=== PATIENT | male | born 1955 | race Caucasian/White ===

== ENCOUNTER → 2018-08-12 | Outpatient (CLI) | payer MEDICARE ==
[~2018-08-12] MED LIST: ALBU90OI INH; ASPI325EC PO; ATOR10 PO; BUDE6HFA INH; BUPR150ER PO; HYDCHL25 PO; METO50ER PO; NAPR500 PO; Neurontin 300300 MG PO; Percocet 5-3251 EACH PO
[2018-08-14 06:16] LABS: COTININE Negative ng/mL (Cutoff=300)
== END | disposition home or self-care (01) ==
LOC: LAB SHORT 09:45 → LAB 09:45 → EDSTATUS 11:52
PROVIDERS: Orthopaedic Surgery
DX: F17.200 Nicotine dependence, unspecified, uncomplicated (principal)

== ENCOUNTER 2018-09-10 06:01 | Inpatient (IN) | payer MEDICARE ==
[~2018-09-10] VITALS: Ht 175.3 cm; Wt 96.2 kg
[~2018-09-10 06:01] MED LIST changes: -ASPI325EC PO; -Percocet 5-3251 EACH PO
--- NOTE | 2018-09-10 06:47 | NUR ---
History, Chart, Medications and Allergies reviewed before start of procedure. Patient confirms NPO status and agrees with scheduled surgery. Lungs clear T/O to Auscultation. Patient reports completing Chlorhexadine shower X2 prior to admission to hospital. Pre-Op teaching done. Pt verbalizes understanding.
--- NOTE | 2018-09-10 07:21 | NUR ---
TEST GRADER REPORT COMPLETED AT BEDSIDE WITH MINOR FIGUEROA RN.
--- NOTE | 2018-09-10 07:25 | NUR ---
PATIENT UP FOR UNMEASURED VOID.
--- NOTE | 2018-09-10 07:48 | NUR ---
LATE ENTRY- [facility] SWABS COMPLETED TO BILATERAL NARES PRESURGICALLY.
--- NOTE | 2018-09-10 10:38 | NUR ---
"COMMUNITY MARKETING MANAGER | BLADDER SCAN Bladder scan of patient per protocol was 117 ml."
--- NOTE | 2018-09-10 12:56 | NUR ---
09/10/18 1256 Jessica Bobby VERIFICATIONS, CHART AUDITS, EDITS.
--- NOTE | 2018-09-10 17:22 | NUR ---
SHIFT SUMMARY PT A&OX4, VSS, S/P R IMANI, AQUACEL CDI, SCDS/TEDS. PAIN MANAGED WITH 10 MG PERC Q4, TORADOL & TYLENOL SCHEDULED. YECENIA PO, DENIES N&V. AMB FWW & GB, SITTING IN CHAIR. PHYSICAL THERAPY EVAL'D. WILL CTM & TX PER EMAR UNTIL REPORT GIVEN TO ONCOMING VANESSA MAHER.
--- NOTE | 2018-09-11 04:17 | NUR ---
SHIFT SUMMARY: PT POD #1 FOR RT IMANI. A&O X4. VS WNL. OOB TO AMBULATE W/FWW. YECENIA ACTIVITY WELL. PAIN MANAGED WITH PERCOCET 10 MG Q4 PER EMAR. AQUACEL DRESSING CDI. PT REFUSING POLAR PACK. VOIDING, DRINKING PO FLUIDS AND YECENIA REG DIET. NO CONCERNS AT THIS TIME.
[2018-09-11 04:19] LABS: BASOPHILS ABSOLUTE AUTO 0.02 K/mm3 (0.00-0.23); BASOPHILS PERCENT AUTO 0 % (0-2); EOSINOPHILS ABSOLUTE AUTO 0.11 K/mm3 (0.00-0.68); EOSINOPHILS PERCENT AUTO 2 % (0-6); Hematocrit 27.9 % (37.0-53.0); Hemoglobin 8.7 g/dL (13.5-17.5); IMMATURE GRAN ABSOLUTE AUTO 0.02 K/mm3 (0.00-0.10); IMMATURE GRAN PERCENT AUTO 0 % (0-1); LYMPHOCYTES ABSOLUTE AUTO 0.53 K/mm3 (0.84-5.20); LYMPHOCYTES PERCENT AUTO 8 % (21-46); MONOCYTES ABSOLUTE AUTO 0.59 K/mm3 (0.16-1.47); MONOCYTES PERCENT AUTO 9 % (4-13); Mean Corpuscular HGB Conc 31.2 g/dL (31.5-36.5); Mean Corpuscular Volume 96 fL (80-100); NEUTROPHILS ABSOLUTE AUTO 5.06 K/mm3 (1.96-9.15); NEUTROPHILS PERCENT AUTO 80 % (41-73); Platelet Count 240 K/mm3 (150-400); RDW Coefficient Variation 13.4 % (11.7-14.2); White Blood Cell Count 6.33 K/mm3 (4.00-11.30)
[2018-09-11 04:51] LABS: Anion Gap 6 mmol/L (6-16); Blood Urea Nitrogen 26 mg/dL (8-24); Bun/Creatinine Ratio 21.5 (12.0-20.0); CO2, Blood 26 mmol/L (21-32); Calcium, Blood 8.5 mg/dL (8.5-10.1); Chloride, Blood 107 mmol/L (98-108); Creatinine, Blood 1.21 mg/dL (0.60-1.20); Glomerular Filtration Rate >60 (60-); Glucose, Blood 113 mg/dL (70-99); Potassium, Blood 4.1 mmol/L (3.5-5.5); Sodium, Blood 139 mmol/L (136-145)
[2018-09-11] MEDS ORDERED: ASPI325EC PO (09:21)
[2018-09-11] MEDS ORDERED: Percocet 5-3251 EACH PO (09:21)
--- NOTE | 2018-09-11 12:35 | NUR ---
DISCHARGE SUMMARY PT A&OX4, VSS, LEFT FLOOR VIA WC WITH GAME PRESERVE MANAGER TO GO HOME WITH FAMILY, WITH ALL PERSONAL POSSESSIONS INCLUDING DISCHARGE PACKET, ASA SCRIPT, NARC SCRIPT, 2 AQUACEL DRESSINGS. DISCHARGE INSTRUCTIONS PROVIDED. PT REP UNDERSTANDING THOSE INSTRUCTIONS INCLUDING CHANGE DRESSINGS ON WEDNESDAYS UNTIL 2 WK FU APPT WITH SURGEON, SHOWER OK, NO TUB/JACUZZI, SHORT/FREQUENT AMBULATION W/FWW, PT APPTS. IV DC'D.
== END 2018-09-11 11:03 | disposition home or self-care (01) | DRG 470 ==
LOC: SURS 06:01 → PRE IP 07:30 → SURS 11:23
PROVIDERS: ADMIT Orthopaedic Surgery
PROC: 0SR90JA Replacement of Right Hip Joint with Synthetic Substitute, Uncemented, Open Approach (ICD-10-PCS; principal; 2018-09-10 07:30)
DX: M87.051 Idiopathic aseptic necrosis of right femur (principal); I10 Essential (primary) hypertension; J44.9 Chronic obstructive pulmonary disease, unspecified; Z87.891 Personal history of nicotine dependence
CPT/HCPCS: 36415; 72170; 80048; 85025; 86850; 86900; 86901; 88300; 94640; 94760; 97110; 97116; 97162; 97530; C1776; J0171; J0690; J0735; J1170; J1885; J2250; J2405; J2795; J3010; J7120

== ENCOUNTER 2018-10-17 13:40 | Day surgery (SDC) | payer MEDICARE ==
[~2018-10-17] VITALS: Ht 175.3 cm; Wt 94.8 kg
[~2018-10-17 13:40] MED LIST changes: +ASPI325EC PO; +Percocet 5-3251 EACH PO
--- NOTE | 2018-10-17 17:18 | NUR ---
"DAY SURGERY RN | DISCHARGE VSS. A/O. Sites C/D/I. Discharge instructions and RX given to patient. No issues. Patient steady on feet. All belongings returned to patient."
== END 2018-10-17 15:00 | disposition home or self-care (01) ==
LOC: ORSCMMR 13:40 → ORD 15:30
PROVIDERS: Orthopaedic Surgery
PROC: 01N40ZZ Release Ulnar Nerve, Open Approach (ICD-10-PCS; principal; 2018-10-17 15:30)
DX: G56.22 Lesion of ulnar nerve, left upper limb (principal); I10 Essential (primary) hypertension; J44.9 Chronic obstructive pulmonary disease, unspecified; Z79.899 Other long term (current) drug therapy
CPT/HCPCS: J0690; J1100; J1885; J2250; J2405; J3010; J7120

== ENCOUNTER → 2020-10-13 | Outpatient (CLI) | payer MEDICARE ==
[2020-10-13 10:45] LABS: BASOPHILS ABSOLUTE AUTO 0.04 K/mm3 (0.00-0.23); BASOPHILS PERCENT AUTO 1 % (0-2); EOSINOPHILS ABSOLUTE AUTO 0.18 K/mm3 (0.00-0.68); EOSINOPHILS PERCENT AUTO 2 % (0-6); Hematocrit 36.3 % (37.0-53.0); IMMATURE GRAN ABSOLUTE AUTO 0.03 K/mm3 (0.00-0.10); IMMATURE GRAN PERCENT AUTO 0 % (0-1); LYMPHOCYTES ABSOLUTE AUTO 0.98 K/mm3 (0.84-5.20); LYMPHOCYTES PERCENT AUTO 13 % (21-46); MONOCYTES ABSOLUTE AUTO 0.69 K/mm3 (0.16-1.47); MONOCYTES PERCENT AUTO 9 % (4-13); Mean Corpuscular HGB 27.6 pg (26.0-34.0); Mean Corpuscular HGB Conc 30.3 g/dL (31.5-36.5); Mean Corpuscular Volume 91 fL (80-100); Mean Platelet Volume 9.3 fL (9.1-12.4); NEUTROPHILS ABSOLUTE AUTO 5.94 K/mm3 (1.96-9.15); NEUTROPHILS PERCENT AUTO 76 % (41-73); Platelet Count 349 K/mm3 (150-400); RDW Coefficient Variation 16.1 % (11.7-14.2); RDW Standard Deviation 53.6 fL (35.1-46.3); Red Blood Cell Count 3.99 M/mm3 (4.30-5.90); White Blood Cell Count 7.86 K/mm3 (4.00-11.30)
[2020-10-13 13:23] LABS: PSA, %Free Unable to Calculate %; PSA, Free <0.015 ng/mL
[2020-10-13 13:31] LABS: Alanine Aminotransfer (ALT/SGP 19 U/L (12-78); Albumin, Blood 3.3 g/dL (3.4-5.0); Albumin/Globulin Ratio 0.8 (0.8-1.8); Alk Phos 80 U/L (50-136); Anion Gap 4 mmol/L (6-16); Aspartate Aminotrans (AST/SGOT 11 U/L (12-37); Bilirubin, Total 0.3 mg/dL (0.1-1.0); Blood Urea Nitrogen 15 mg/dL (8-24); Bun/Creatinine Ratio 13.9 (12.0-20.0); CHOL/HDL RATIO 2.1; CO2, Blood 31 mmol/L (21-32); Calcium, Blood 9.3 mg/dL (8.5-10.1); Chloride, Blood 108 mmol/L (98-108); Cholesterol 126 mg/dL (50-200); Creatinine, Blood 1.08 mg/dL (0.60-1.20); Glomerular Filtration Rate >60 (60-); Glucose, Blood 95 mg/dL (70-99); HDL Cholesterol 59 mg/dL (>39); LDL/HDL RATIO 0.7; Low Density Lipoprotein Chol 39 mg/dL (0-110); Potassium, Blood 4.3 mmol/L (3.5-5.5); Sodium, Blood 143 mmol/L (136-145); Total Protein, Blood 7.3 g/dL (6.4-8.2); Triglycerides 139 mg/dL (30-160); Very Low Density Lipoprot Chol 27 mg/dL (6-32)
== END | disposition home or self-care (01) ==
LOC: LAB SHORT 09:41 → OLS 09:41
PROVIDERS: Family Medicine
DX: C61 Malignant neoplasm of prostate (principal); E78.5 Hyperlipidemia, unspecified; I73.9 Peripheral vascular disease, unspecified; E66.9 Obesity, unspecified
CPT/HCPCS: 36415; 80053; 80061; 83036; 84153; 84154; 84443; 85025

== ENCOUNTER 2021-07-15 18:05 | Emergency (ER) | payer MEDICARE ==
[~2021-07-15] VITALS: Ht 175.3 cm; Wt 99.8 kg
[2021-07-15 19:35] LABS: BASOPHILS ABSOLUTE AUTO 0.06 K/mm3 (0.00-0.23); BASOPHILS PERCENT AUTO 1 % (0-2); EOSINOPHILS PERCENT AUTO 3 % (0-6); Hemoglobin 10.9 g/dL (13.5-17.5); IMMATURE GRAN ABSOLUTE AUTO 0.05 K/mm3 (0.00-0.10); IMMATURE GRAN PERCENT AUTO 1 % (0-1); LYMPHOCYTES ABSOLUTE AUTO 1.44 K/mm3 (0.84-5.20); LYMPHOCYTES PERCENT AUTO 20 % (21-46); MONOCYTES PERCENT AUTO 10 % (4-13); Mean Corpuscular HGB 29.9 pg (26.0-34.0); Mean Corpuscular HGB Conc 32.1 g/dL (31.5-36.5); Mean Corpuscular Volume 93 fL (80-100); Mean Platelet Volume 9.5 fL (9.1-12.4); NEUTROPHILS ABSOLUTE AUTO 4.88 K/mm3 (1.96-9.15); NEUTROPHILS PERCENT AUTO 67 % (41-73); Platelet Count 302 K/mm3 (150-400); RDW Coefficient Variation 16.7 % (11.7-14.2); Red Blood Cell Count 3.64 M/mm3 (4.30-5.90); White Blood Cell Count 7.33 K/mm3 (4.00-11.30)
[2021-07-15 20:07] LABS: Albumin, Blood 3.1 g/dL (3.4-5.0); Bilirubin, Total 0.2 mg/dL (0.1-1.0); Bun/Creatinine Ratio 16.8 (12.0-20.0); Creatinine, Blood 1.25 mg/dL (0.60-1.20); Potassium, Blood 4.4 mmol/L (3.5-5.5); Total Protein, Blood 6.1 g/dL (6.4-8.2)
== END 2021-07-15 20:53 | disposition home or self-care (01) ==
LOC: ER 18:05
PROVIDERS: Emergency Medicine
DX: R60.0 Localized edema (principal); I10 Essential (primary) hypertension; Z79.899 Other long term (current) drug therapy; F17.210 Nicotine dependence, cigarettes, uncomplicated
CPT/HCPCS: 36415; 80053; 83880; 85025; 93971; 99284-25

== ENCOUNTER 2023-02-09 22:10 | Inpatient (IN) | payer MEDICARE ==
[~2023-02-09] VITALS: Ht 175.3 cm; Wt 107.2 kg
[2023-02-09 23:04] LABS: BASOPHILS ABSOLUTE AUTO 0.04 K/mm3 (0.00-0.23); BASOPHILS PERCENT AUTO 0 % (0-2); EOSINOPHILS ABSOLUTE AUTO 0.13 K/mm3 (0.00-0.68); EOSINOPHILS PERCENT AUTO 1 % (0-6); Hematocrit 41.6 % (37.0-53.0); Hemoglobin 13.4 g/dL (13.5-17.5); IMMATURE GRAN ABSOLUTE AUTO 0.05 K/mm3 (0.00-0.10); IMMATURE GRAN PERCENT AUTO 0 % (0-1); LYMPHOCYTES PERCENT AUTO 14 % (21-46); MONOCYTES PERCENT AUTO 12 % (4-13); Mean Corpuscular HGB 28.9 pg (26.0-34.0); Mean Corpuscular HGB Conc 32.2 g/dL (31.5-36.5); Mean Corpuscular Volume 90 fL (80-100); Mean Platelet Volume 9.1 fL (9.1-12.4); NEUTROPHILS ABSOLUTE AUTO 8.13 K/mm3 (1.96-9.15); NEUTROPHILS PERCENT AUTO 73 % (41-73); Platelet Count 320 K/mm3 (150-400); RDW Standard Deviation 52.8 fL (35.1-46.3); Red Blood Cell Count 4.64 M/mm3 (4.30-5.90); White Blood Cell Count 11.15 K/mm3 (4.00-11.30)
[2023-02-09 23:23] LABS: Bilirubin, Total 0.3 mg/dL (0.1-1.0); Bun/Creatinine Ratio 11.6 (12.0-20.0); Calcium, Blood 9.1 mg/dL (8.5-10.1); Creatinine, Blood 3.35 mg/dL (0.60-1.20); Globulin, Blood 3.9 g/dL (2.2-4.0); Potassium, Blood 3.9 mmol/L (3.5-5.5); Total Protein, Blood 7.9 g/dL (6.4-8.2)
[2023-02-10 01:48] LABS: Source, Urine Clean Catch
[2023-02-10 01:50] LABS: Blood, Urine 1+ (Neg); Glucose Qualitative, Urine Neg (Neg); Ketones, Urine 1+ (Neg); Leukocyte Esterase, Urine 2+ (Neg); Nitrite, Urine Neg (Neg); Protein, Urine 3+ (Neg); Specific Gravity, Urine 1.025 (1.003-1.022); Urobilinogen, Urine 1+ (Normal)
[2023-02-10 01:52] LABS: Appearance, Urine Hazy (Clear); Bilirubin, Urine 2+ (Neg); Color, Urine Yellow (P-Yellow)
[2023-02-10 02:15] LABS: Amorphous Light (0-Heavy); Bacteria Mod /hpf; Granular Casts 0-2 /lpf (0); Mucus Light (0-Heavy); Other Crystals Few /hpf; Squamous Epithelial Cells Few /hpf (Few); White Blood Cells, Urine 25-50 /hpf (0-5)
[2023-02-10] MEDS ORDERED: AMLO5 PO (02:22)
[2023-02-10] MEDS ORDERED: TRAM50 PO (02:23)
--- NOTE | 2023-02-10 08:01 | NUR ---
PT ARRIVED TO THE MEDICAL FLOOR FROM THE ER A/OX4. PLEASANT AND COOPERAT, VIA WHEELCHAIR. THE PT WAS ABLE TO TRANSFER TO THE BED WITH MINIMAL ASSISTANCE. THE PT WAS ORIENTED TO THE ROOM LAYOUT AND CALL SYSTEM. CALL LIGHT IN REACH WILL CONTINUE TO MONITOR AND ASSESS FOR CHANGES
[2023-02-10 08:02] VITALS: BP 151/98
[2023-02-10] MEDS ORDERED: NAPR500 PO (10:24)
[2023-02-10] MEDS ORDERED: TRAZ100 PO (10:24)
[2023-02-10] MEDS ORDERED: ATOR10 PO (10:26)
[2023-02-10] MEDS ORDERED: ASPI81CH PO (10:26)
[2023-02-10 11:04] LABS: CPK Creatine Kinase 162 U/L (39-308)
[2023-02-10 17:20] VITALS: BP 140/82
--- NOTE | 2023-02-10 19:29 | NUR ---
PT IS A/OX4, PLEASANT AND COOPERATIVE. THE PT IS UP IND IN HIS ROOM. THE PT IS UP SLOWLY DUE TO SEVERE BACK PAIN. THE PT WAS MEDICATED FOR PAIN T/O THE DAY. THE PT WAS ENCOURAGED TO DRINK PLENTY OF FLUIDS. THE PTS FAMILY WAS IN TO VISIT. CALL LIGHT IN REACH. REPORT GIVEN TO NIGHT RN
[2023-02-10 19:32] VITALS: BP 147/69
[2023-02-10 20:10] LABS: Albumin, Blood 3.7 g/dL (3.4-5.0); Anion Gap 12 mmol/L (6-16); Blood Urea Nitrogen 40 mg/dL (8-24); Bun/Creatinine Ratio 12.6 (12.0-20.0); CO2, Blood 17 mmol/L (21-32); Chloride, Blood 109 mmol/L (98-108); Creatinine, Blood 3.17 mg/dL (0.60-1.20); Glomerular Filtration Rate 20 (60-); Glucose, Blood 104 mg/dL (70-99); Phosphorus, Blood 5.4 mg/dL (2.5-4.9); Potassium, Blood 3.8 mmol/L (3.5-5.5); Sodium, Blood 138 mmol/L (136-145)
[2023-02-11 00:14] LABS: Albumin, Blood 3.2 g/dL (3.4-5.0); Anion Gap 4 mmol/L (6-16); Blood Urea Nitrogen 39 mg/dL (8-24); Bun/Creatinine Ratio 22.4 (12.0-20.0); CO2, Blood 27 mmol/L (21-32); Calcium, Blood 8.4 mg/dL (8.5-10.1); Chloride, Blood 109 mmol/L (98-108); Creatinine, Blood 1.74 mg/dL (0.60-1.20); Glomerular Filtration Rate 42 (60-); Glucose, Blood 116 mg/dL (70-99); Phosphorus, Blood 4.4 mg/dL (2.5-4.9); Potassium, Blood 4.1 mmol/L (3.5-5.5); Sodium, Blood 140 mmol/L (136-145)
--- NOTE | 2023-02-11 03:23 | NUR ---
SHIFT SUMMARY NOC PT A/O X 4. PLEASANT AND COOPERATIVE WITH CARE. CHRONIC BACK PAIN MANAGED PER EMAR. PT ON TELE RUNNING SINUS RHYTHM @ 82 BPM. PT RECEIVING ABX FOR UTI. AWAITING RENAL FUNCTION LABS TO EVALUATE NS AND BICARB INFUSIONS. PT EDUCATED ON [facility] FIRE SAFETY IGNITION/EXPLOSIVE NON SMOKING POLICY. PT IS CURRENTLY RESTING WITH BED IN LOWEST POSITION, AND CALL LIGHT WITHIN REACH.
[2023-02-11 04:24] VITALS: BP 137/79
[2023-02-11 04:48] LABS: BASOPHILS ABSOLUTE AUTO 0.03 K/mm3 (0.00-0.23); BASOPHILS PERCENT AUTO 1 % (0-2); EOSINOPHILS ABSOLUTE AUTO 0.28 K/mm3 (0.00-0.68); EOSINOPHILS PERCENT AUTO 5 % (0-6); Hematocrit 36.7 % (37.0-53.0); Hemoglobin 11.5 g/dL (13.5-17.5); IMMATURE GRAN ABSOLUTE AUTO 0.02 K/mm3 (0.00-0.10); IMMATURE GRAN PERCENT AUTO 0 % (0-1); LYMPHOCYTES ABSOLUTE AUTO 1.02 K/mm3 (0.84-5.20); LYMPHOCYTES PERCENT AUTO 19 % (21-46); MONOCYTES ABSOLUTE AUTO 0.59 K/mm3 (0.16-1.47); MONOCYTES PERCENT AUTO 11 % (4-13); Mean Corpuscular HGB 28.5 pg (26.0-34.0); Mean Corpuscular HGB Conc 31.3 g/dL (31.5-36.5); Mean Corpuscular Volume 91 fL (80-100); Mean Platelet Volume 9.4 fL (9.1-12.4); NEUTROPHILS ABSOLUTE AUTO 3.32 K/mm3 (1.96-9.15); NEUTROPHILS PERCENT AUTO 63 % (41-73); Platelet Count 226 K/mm3 (150-400); RDW Coefficient Variation 15.8 % (11.7-14.2); RDW Standard Deviation 52.8 fL (35.1-46.3); Red Blood Cell Count 4.04 M/mm3 (4.30-5.90); White Blood Cell Count 5.26 K/mm3 (4.00-11.30)
[2023-02-11 06:11] LABS: Albumin, Blood 3.3 g/dL (3.4-5.0); Albumin/Globulin Ratio 0.9 (0.8-1.8); Bilirubin, Total 0.2 mg/dL (0.1-1.0); Bun/Creatinine Ratio 21.7 (12.0-20.0); Calcium, Blood 8.8 mg/dL (8.5-10.1); Creatinine, Blood 1.57 mg/dL (0.60-1.20); Globulin, Blood 3.6 g/dL (2.2-4.0); Potassium, Blood 4.1 mmol/L (3.5-5.5); Total Protein, Blood 6.9 g/dL (6.4-8.2)
[2023-02-11 07:32] VITALS: BP 158/75
[2023-02-11 10:41] VITALS: BP 169/75
[2023-02-11 15:47] VITALS: BP 136/60
--- NOTE | 2023-02-11 16:47 | NUR ---
SHIFT SUMMARY PT A/OX4 AND ABLE TO MAKE NEEDS KNOWN. PLEASANT AND COOPERATIVE. PT C/O HIGH LEVELS OF PAIN T/O SHIFT AND MOSTLY UNMANAGED WITH Q3 DILAUDID. AT START OF SHIFT PT C/O OF SOME INTERMITTANT CHEST PAIN, THEN EPISODE OF LEFT ARM SHOOTING PAIN. BP ELEVATED. DR ARAIZA AT BEDSIDE WITH ORDERS: RESTART NORVAS 5M FIRST DOSE NOW, EKG, TROPONIN, AND OTHER HOME MEDS ORDERED BY DR ARAIZA INCLUDING RESPIRATORY MEDICATIONS. EKG NORMAL TROPONINS NEGATIVE. PT HAS BEDSIDE IMAGING OF ABD/RENAL. PT TOLERATED WELL. PT GIVEN 2 DOES OF VALIUM TO PREP FOR MRI. PT TAKEN TO MRI AT 430. PT RETURNED AT 445. MRI NOT DONE. FRAME NAILER/MEGAN CALLED AND SAID WHEN PT GETTING READY FOR SCAN HE BEGAN TO C/O SOB AND MRI STOPPED. MEGAN CALLED TO UPDATE AND SAID COULD TRY AGAIN ANOTHER TIME. PT CODE STATUS CHANGED FROM DNR CODE TO DNI CODE AFTER BEDSIDE DISCUSSION WITH DR ARAIZA. CHARGE NURSE ASSESSED FOR IGNITION RISKS DISCUSSED RISKS WITH THE PT.
--- NOTE | 2023-02-11 17:59 | NUR ---
PT REQUESTING MRI OUT PATIENT AT [place] WITH THE BIGGER MRI MACHIN. PHONE CALL TO DR ARAIZA TO ADVISE OF PT WISHES. DR WILCOX TO SEE PT TOMORROW.
[2023-02-11 19:45] VITALS: BP 136/73
--- NOTE | 2023-02-12 03:10 | NUR ---
SHIFT SUMMARY NOC PT A/O X 4. PLEASANT AND COOPERATIVE WITH CARE. NO ACUTE CHANGES TO REPORT. PT CHRONIC PAIN BEING MANAGED PER EMAR Q3H WITH DILAUDID. PT HAS HAD NO C/O OF CP/SOB DURING NOC SHIFT. ON TELE SINUS RHTYHM @ 82 BPM. PT RENAL FUNCTION HAS IMPROVED. PT ATTEMPTED MRI FOR LUMBAR YESTERDAY BUT COULD NOT TOLERATE IT. FOLLOW UP MRI OUTPATIENT DISCUSSED WITH PROVIDER. PT BP RX RESTARTED YESTERDAY AND VSS. PT ALSO HAD FIRST BM SINCE SUNDAY THAT WAS XL AND FORMED. PT IS ANXIOUS TO DISCHARGE AND UNDERSTANDS THAT PAIN CONTROL WITH PO RX WILL BE REQUIRED TO DO SO. PT EDUCATED ON [facility] FIRE PREVENTION SAFETY IGNITION/EXPLOSIVE NON SMOKING POLICY. PT IS CURRENTLY RESTING WITH BED IN LOWEST POSITION, AND CALL LIGHT WITHIN REACH.
[2023-02-12 03:29] VITALS: BP 125/71
[2023-02-12 08:30] VITALS: BP 148/78
[2023-02-12] MEDS ORDERED: Acetaminophen325 M1 PO (12:03)
[2023-02-12] MEDS ORDERED: MIRALAX17 GM PO (12:03)
[2023-02-12] MEDS ORDERED: HYDMOR2 PO (12:04)
[2023-02-12] MEDS ORDERED: CEFP200 PO (12:04)
--- NOTE | 2023-02-12 12:50 | NUR ---
DISCHARGE PT DISCHARGED AFTER EDUCATION ABOUT NEW MEDS AND FOLLOW UP INSTRUCTIONS WAS COMPLETED. PT DENIED FURTHER NEED FOR EDUCATION AT TIME OF DC. IV REMOVED & INTACT PRIOR TO DC. NO CHANGES IN ASSESSMENT PRIOR TO DC. NO SOURCES OF IGNITION FOUND IN ROOM PRIOR TO DC. PT WHEELED OUT BY AIDE & DRIVEN HOME BY SISTER.
[2023-02-15] MEDS ORDERED: Budeprion Xl300 MG PO (20:59)
== END 2023-02-12 12:50 | disposition home health service (06) | DRG 682 ==
LOC: ER 22:10 → MEDS 02-10 06:02
PROVIDERS: Emergency Medicine; Family Medicine; ADMIT Internal Medicine
DX: N17.9 Acute kidney failure, unspecified (principal); A41.9 Sepsis, unspecified organism; E87.20 Acidosis, unspecified; N39.0 Urinary tract infection, site not specified; M51.06 Intervertebral disc disorders with myelopathy, lumbar region; G89.29 Other chronic pain; Z66 Do not resuscitate; R97.20 Elevated prostate specific antigen [PSA]; G62.9 Polyneuropathy, unspecified; M54.50 Low back pain, unspecified; N18.30 Chronic kidney disease, stage 3 unspecified; I12.9 Hypertensive chronic kidney disease with stage 1 through stage 4 chronic kidney disease, or unspecified chronic kidney disease; N28.89 Other specified disorders of kidney and ureter; E66.9 Obesity, unspecified; J44.9 Chronic obstructive pulmonary disease, unspecified; F32.A Depression, unspecified; G47.00 Insomnia, unspecified; F17.210 Nicotine dependence, cigarettes, uncomplicated; Z96.641 Presence of right artificial hip joint; Z79.891 Long term (current) use of opiate analgesic; Z79.899 Other long term (current) drug therapy; Z91.038 Other insect allergy status; Z87.39 Personal history of other diseases of the musculoskeletal system and connective tissue; Z98.890 Other specified postprocedural states; Z85.46 Personal history of malignant neoplasm of prostate; Z98.1 Arthrodesis status
CPT/HCPCS: 36415; 71046; 74176; 76770; 80053; 80069; 81001; 82550; 83605; 83690; 83880; 84484; 85025; 87086; 93005; 93010; 94640; 94664; 94760; 96365; 96375; 97110; 97161; 97165; 97535; 99285-25; A9270; J0696; J1170; J1644; J3010; J7030; J7050

== ENCOUNTER → 2023-03-07 | Outpatient (CLI) | payer MEDICARE ==
[~2023-03-07] MED LIST changes: +AMLO5 PO; +ASPI81CH PO; +Acetaminophen325 M1 PO; +Budeprion Xl300 MG PO; +CEFP200 PO; +HYDMOR2 PO; +MIRALAX17 GM PO; +TRAM50 PO; +TRAZ100 PO
[2023-03-07 18:43] LABS: Albumin, Blood 3.9 g/dL (3.4-5.0); Albumin/Globulin Ratio 0.8 (0.8-1.8); Bilirubin, Total 0.3 mg/dL (0.1-1.0); Calcium, Blood 10.1 mg/dL (8.5-10.1); Creatinine, Blood 1.26 mg/dL (0.60-1.20); Globulin, Blood 4.8 g/dL (2.2-4.0); Potassium, Blood 4.6 mmol/L (3.5-5.5); Total Protein, Blood 8.7 g/dL (6.4-8.2)
[2023-03-07 18:45] LABS: Prostate Specific Antigen 0.159 ng/mL (0.000-4.000)
== END | disposition home or self-care (01) ==
LOC: LAB 15:50 → LAB SHORT 15:50
PROVIDERS: Family Medicine; Physician Assistant
DX: N17.9 Acute kidney failure, unspecified (principal); C61 Malignant neoplasm of prostate
CPT/HCPCS: 80053; 84153

== ENCOUNTER → 2023-03-08 | Outpatient (CLI) | payer MEDICARE | LOC: LAB 14:35 → LAB SHORT 14:35 | DX: R73.9 Hyperglycemia, unspecified (principal) | CPT/HCPCS: 83036 ==

== ENCOUNTER → 2023-07-14 | Outpatient (CLI) | payer MEDICARE ==
[2023-07-21 06:41] LABS: 6-ACETYLMORPHINE, URN, QUANT <10 ng/mL; CODEINE, URN, QUANT <20 ng/mL; HYDROCODONE, URN, QUANT <20 ng/mL; HYDROMORPHONE, URN, QUANT <20 ng/mL; MORPHINE, URN, QUANT <20 ng/mL; NORHYDROCODONE, URN, QUANT <20 ng/mL; NOROXYCODONE, URN, QUANT >4000 ng/mL; NOROXYMORPHONE, URN, QUANT 466 ng/mL; OXYCODONE, URN, QUANT >4000 ng/mL; OXYMORPHONE, URN, QUANT 95 ng/mL
== END ==
LOC: LAB 16:00 → LAB SHORT 16:00
PROVIDERS: Family Medicine
DX: Z79.899 Other long term (current) drug therapy (principal)
CPT/HCPCS: G0480

== ENCOUNTER → 2023-09-18 | Outpatient (CLI) | payer MEDICARE ==
[2023-09-23 06:33] LABS: 11-NOR-9-CARBOXY-THC,URN,QUANT 75 ng/mL
[2023-09-23 10:31] LABS: 6-ACETYLMORPHINE, URN, QUANT <10 ng/mL; CODEINE, URN, QUANT <20 ng/mL; HYDROCODONE, URN, QUANT >4000 ng/mL; HYDROMORPHONE, URN, QUANT 231 ng/mL; MORPHINE, URN, QUANT <20 ng/mL; NORHYDROCODONE, URN, QUANT >4000 ng/mL; NOROXYCODONE, URN, QUANT <20 ng/mL; NOROXYMORPHONE, URN, QUANT <20 ng/mL; OXYCODONE, URN, QUANT <20 ng/mL; OXYMORPHONE, URN, QUANT <20 ng/mL
== END | disposition home or self-care (01) ==
LOC: LAB SHORT 17:43 → LAB 17:43
PROVIDERS: Family Medicine
DX: Z51.81 Encounter for therapeutic drug level monitoring (principal); Z79.899 Other long term (current) drug therapy
CPT/HCPCS: G0480

== ENCOUNTER → 2024-02-15 | Outpatient (CLI) | payer MEDICARE ==
[~2024-02-15] MED LIST changes: +ATOR40TA PO; +AZIT500 PO; +BREO ELLIPTA 11 EAC1; +BUSP5 PO; +Flomax0.4 MG PO; +HYDROCODONE-AC1 EAC7 PO; +IPRAT-ALBUT 0.5-3 ML INH; +LEVOFLOXACIN750 MG PO; +LOSA50 PO; +OXYB5 PO; +PRED20 PO; +Prednisone5 MG PO; +TRELEGY ELLIPT1 EACH INH; +VISBIOME 112.51 EACH PO
[2024-02-15 14:08] LABS: BASOPHILS ABSOLUTE AUTO 0.03 K/mm3 (0.00-0.23); BASOPHILS PERCENT AUTO 0 % (0-2); EOSINOPHILS ABSOLUTE AUTO 0.13 K/mm3 (0.00-0.68); EOSINOPHILS PERCENT AUTO 2 % (0-6); Hematocrit 26.3 % (37.0-53.0); IMMATURE GRAN ABSOLUTE AUTO 0.04 K/mm3 (0.00-0.10); IMMATURE GRAN PERCENT AUTO 1 % (0-1); LYMPHOCYTES ABSOLUTE AUTO 0.85 K/mm3 (0.84-5.20); LYMPHOCYTES PERCENT AUTO 12 % (21-46); MONOCYTES ABSOLUTE AUTO 0.81 K/mm3 (0.16-1.47); MONOCYTES PERCENT AUTO 11 % (4-13); Mean Corpuscular HGB 27.4 pg (26.0-34.0); Mean Corpuscular HGB Conc 30.4 g/dL (31.5-36.5); Mean Corpuscular Volume 90 fL (80-100); Mean Platelet Volume 9.7 fL (9.1-12.4); NEUTROPHILS ABSOLUTE AUTO 5.38 K/mm3 (1.96-9.15); NEUTROPHILS PERCENT AUTO 74 % (41-73); Platelet Count 237 K/mm3 (150-400); RDW Coefficient Variation 16.8 % (11.7-14.2); RDW Standard Deviation 55.5 fL (35.1-46.3); Red Blood Cell Count 2.92 M/mm3 (4.30-5.90); White Blood Cell Count 7.24 K/mm3 (4.00-11.30)
[2024-02-15 14:24] LABS: Albumin, Blood 3.1 g/dL (3.4-5.0); Albumin/Globulin Ratio 0.7 (0.8-1.8); Bilirubin, Total 0.4 mg/dL (0.1-1.0); Bun/Creatinine Ratio 15.8 (12.0-20.0); Calcium, Blood 8.3 mg/dL (8.5-10.1); Creatinine, Blood 4.63 mg/dL (0.60-1.20); Globulin, Blood 4.4 g/dL (2.2-4.0); Total Protein, Blood 7.5 g/dL (6.4-8.2)
== END | disposition home or self-care (01) ==
LOC: LAB 12:00 → LAB SHORT 12:00
PROVIDERS: Physician Assistant
DX: D64.9 Anemia, unspecified (principal); R31.9 Hematuria, unspecified
CPT/HCPCS: 80053; 85025; 87077; 87086; 87186

== ENCOUNTER → 2024-02-15 | Outpatient (CLI) | payer MEDICARE | LOC: LAB SHORT 14:02 → LAB 14:02 | DX: R31.9 Hematuria, unspecified (principal) | CPT/HCPCS: 87077; 87086; 87186 ==

== ENCOUNTER 2024-02-16 11:01 | Inpatient (IN) | payer MEDICARE ==
[~2024-02-16] VITALS: Ht 175.3 cm; Wt 111.1 kg
[~2024-02-16 11:01] MED LIST changes: -Flomax0.4 MG PO; -LEVOFLOXACIN750 MG PO; -VISBIOME 112.51 EACH PO
[2024-02-16 11:43] LABS: BASOPHILS ABSOLUTE AUTO 0.03 K/mm3 (0.00-0.23); BASOPHILS PERCENT AUTO 1 % (0-2); EOSINOPHILS ABSOLUTE AUTO 0.15 K/mm3 (0.00-0.68); EOSINOPHILS PERCENT AUTO 2 % (0-6); Hematocrit 27.6 % (37.0-53.0); Hemoglobin 8.4 g/dL (13.5-17.5); IMMATURE GRAN ABSOLUTE AUTO 0.03 K/mm3 (0.00-0.10); IMMATURE GRAN PERCENT AUTO 1 % (0-1); LYMPHOCYTES PERCENT AUTO 13 % (21-46); MONOCYTES ABSOLUTE AUTO 0.61 K/mm3 (0.16-1.47); MONOCYTES PERCENT AUTO 10 % (4-13); Mean Corpuscular HGB 26.9 pg (26.0-34.0); Mean Corpuscular HGB Conc 30.4 g/dL (31.5-36.5); Mean Corpuscular Volume 89 fL (80-100); Mean Platelet Volume 9.2 fL (9.1-12.4); NEUTROPHILS ABSOLUTE AUTO 4.67 K/mm3 (1.96-9.15); NEUTROPHILS PERCENT AUTO 74 % (41-73); Platelet Count 236 K/mm3 (150-400); RDW Coefficient Variation 16.6 % (11.7-14.2); RDW Standard Deviation 53.6 fL (35.1-46.3); Red Blood Cell Count 3.12 M/mm3 (4.30-5.90); White Blood Cell Count 6.29 K/mm3 (4.00-11.30)
[2024-02-16 12:01] LABS: Albumin, Blood 3.3 g/dL (3.4-5.0); Albumin/Globulin Ratio 0.7 (0.8-1.8); Bilirubin, Total 0.3 mg/dL (0.1-1.0); Bun/Creatinine Ratio 23.8 (12.0-20.0); Calcium, Blood 8.5 mg/dL (8.5-10.1); Creatinine, Blood 2.82 mg/dL (0.60-1.20); Globulin, Blood 4.5 g/dL (2.2-4.0); Potassium, Blood 4.9 mmol/L (3.5-5.5); Total Protein, Blood 7.8 g/dL (6.4-8.2)
[2024-02-16] MEDS ORDERED: NS 1,000 ML IV SCH ×2 (13:35→19:00)
[2024-02-16 14:21] LABS: Source, Urine Clean Catch
[2024-02-16 14:25] LABS: Appearance, Urine Hazy (Clear); Bilirubin, Urine Neg (Neg); Blood, Urine 2+ (Neg); Color, Urine Yellow (P-Yellow); Glucose Qualitative, Urine Neg (Neg); Ketones, Urine Neg (Neg); Leukocyte Esterase, Urine 3+ (Neg); Nitrite, Urine Neg (Neg); Protein, Urine 1+ (Neg); Urobilinogen, Urine NORM (Normal)
[2024-02-16 14:34] LABS: Bacteria Few /hpf; Hyaline Casts 0-2 /lpf (0-2); Squamous Epithelial Cells Few /hpf (Few); White Blood Cells, Urine 50-100 /hpf (0-5)
[2024-02-16] MEDS ORDERED: Albuterol HFA200 ACT/6.7 GM INH INH PRN (16:20)
[2024-02-16] MEDS ORDERED: HYDROcodone 10-APAP 325 TAB PO PRN (16:25)
[2024-02-16] MEDS ORDERED: Ipratropium/Albuterol SulF 2.5-0.5MG/3 ML Amp INH PRN (16:25)
[2024-02-16] MEDS ORDERED: VILANTEROL INH SCH (16:25)
[2024-02-16] MEDS ORDERED: UMECLIDINIUM INH SCH (16:25)
[2024-02-16] MEDS ORDERED: FLUTICASONE INH SCH (16:25)
[2024-02-16 17:46] VITALS: BP 145/97
--- NOTE | 2024-02-16 18:05 | NUR ---
pt arrived to 335 via wheelchair from ED, pt is a/ox4, pleasant and cooperative with care, follows commands well, able to transfer indep to bathroom, lungs are clear t/o, resp even and unlabored, no cough noted, hrr, distant, edema noted to b/l +1 to rfoot, +2 to lfoot, ppp+2, cap refill <3 sec vs stable, afebrile, piv to rac, site is clear and patent, btx4, abd flat soft nontender, voids without diff, no further blood noted, skin c/w/d, maew, hever, oriented to room layout and call system, call light in reach.
--- NOTE | 2024-02-16 18:09 | NUR ---
Dr. Schmitz in to see pt.
[2024-02-16] MEDS ORDERED: Ondansetron HCl 2 MG / ML 2ML Vial IV PRN (18:15)
[2024-02-16] MEDS ORDERED: Tamsulosin HCl 0.4 MG Cap PO SCH (19:00)
[2024-02-16] MEDS ORDERED: Ampicillin Sod 2,000 MG in NS 100 ML IV SCH (19:00)
[2024-02-16 19:16] VITALS: BP 134/68
[2024-02-16] MEDS ORDERED: TraZODone HCl 100 MG Tab PO SCH (21:00)
[2024-02-16] MEDS ORDERED: BusPIRone HCl 5 MG Tab PO SCH (21:00)
[2024-02-16] MEDS ORDERED: Gabapentin 300 MG Cap PO SCH (21:00)
[2024-02-16] MEDS ORDERED: Lactobacil 2-S.Thermo-Bifido 1 1 Cap PO SCH (21:00)
[2024-02-17 05:00] VITALS: BP 144/52
[2024-02-17 06:08] LABS: BASOPHILS ABSOLUTE AUTO 0.03 K/mm3 (0.00-0.23); BASOPHILS PERCENT AUTO 1 % (0-2); EOSINOPHILS ABSOLUTE AUTO 0.13 K/mm3 (0.00-0.68); EOSINOPHILS PERCENT AUTO 2 % (0-6); Hematocrit 27.6 % (37.0-53.0); Hemoglobin 8.4 g/dL (13.5-17.5); IMMATURE GRAN ABSOLUTE AUTO 0.02 K/mm3 (0.00-0.10); IMMATURE GRAN PERCENT AUTO 0 % (0-1); LYMPHOCYTES ABSOLUTE AUTO 0.86 K/mm3 (0.84-5.20); LYMPHOCYTES PERCENT AUTO 15 % (21-46); MONOCYTES ABSOLUTE AUTO 0.63 K/mm3 (0.16-1.47); MONOCYTES PERCENT AUTO 11 % (4-13); Mean Corpuscular HGB 27.4 pg (26.0-34.0); Mean Corpuscular HGB Conc 30.4 g/dL (31.5-36.5); Mean Corpuscular Volume 90 fL (80-100); Mean Platelet Volume 9.4 fL (9.1-12.4); NEUTROPHILS PERCENT AUTO 71 % (41-73); Platelet Count 206 K/mm3 (150-400); RDW Coefficient Variation 16.7 % (11.7-14.2); RDW Standard Deviation 54.1 fL (35.1-46.3); Red Blood Cell Count 3.07 M/mm3 (4.30-5.90); White Blood Cell Count 5.77 K/mm3 (4.00-11.30)
[2024-02-17 06:33] LABS: Magnesium, Blood 2.1 mg/dL (1.6-2.4); Prostate Specific Antigen 0.041 ng/mL (0.000-4.000); Uric Acid, Blood 6.7 mg/dL (3.5-7.2)
[2024-02-17 06:35] LABS: Alanine Aminotransfer (ALT/SGP 19 U/L (12-78); Albumin, Blood 3.2 g/dL (3.4-5.0); Albumin/Globulin Ratio 0.7 (0.8-1.8); Alk Phos 69 U/L (50-136); Anion Gap 11 mmol/L (3-11); Aspartate Aminotrans (AST/SGOT 12 U/L (12-37); Bilirubin, Direct <0.1 mg/dL (0.0-0.3); Bilirubin, Indirect Unable to Calculate mg/dL (0.1-0.7); Bilirubin, Total 0.2 mg/dL (0.1-1.0); Blood Urea Nitrogen 45 mg/dL (8-24); Bun/Creatinine Ratio 27.1 (12.0-20.0); CO2, Blood 26 mmol/L (21-32); Calcium, Blood 8.6 mg/dL (8.5-10.1); Chloride, Blood 110 mmol/L (98-108); Creatinine, Blood 1.66 mg/dL (0.60-1.20); Globulin, Blood 4.3 g/dL (2.2-4.0); Glomerular Filtration Rate 44 (60-); Glucose, Blood 100 mg/dL (70-99); Phosphorus, Blood 2.4 mg/dL (2.5-4.9); Potassium, Blood 4.1 mmol/L (3.5-5.5); Sodium, Blood 143 mmol/L (136-145); Total Protein, Blood 7.5 g/dL (6.4-8.2)
--- NOTE | 2024-02-17 07:13 | NUR ---
END OF SHIFT SUMMARY PT A&OX4. DENIES URINARY SYMPTOMS. VOIDING LARGE AMOUNTS OF CLEAR, YELLOW URINE. INDEPENDENT IN ROOM. VSS. NO ACUTE EVENTS OVERNIGHT.
[2024-02-17 07:14] VITALS: BP 152/75
[2024-02-17] MEDS ORDERED: Sodium Phosphate 10 MM in Dextrose 5% 250 ML IV ONE (08:05)
[2024-02-17] MEDS ORDERED: Atorvastatin 40 MG Tab PO SCH (09:00)
[2024-02-17] MEDS ORDERED: oxyBUTYnin chloride 5 MG TAB PO SCH (09:00)
[2024-02-17] MEDS ORDERED: buPROPion HCL 150 MG TAB.SR.12H PO SCH (09:00)
--- NOTE | 2024-02-17 09:00 | NUR ---
pt laying in bed awake a/ox4, pleasant and cooperative with care, follows commands well, denies pain, lungs are clear in upper villatoro, faint wheezing in basis, on r/a, resp even and unlabored, no cough noted, hrr, edema noted to b/l le, +1-2, piv to rac site is clear and patent, btx4, abd flat soft nontender, voids without diff, urine has been clear, skin c/w/d, maew, up indep, hever, call light in reach.
[2024-02-17] MEDS ORDERED: Carvedilol 6.25 MG Tab PO SCH (11:10)
[2024-02-17 15:45] VITALS: BP 134/82
--- NOTE | 2024-02-17 18:07 | NUR ---
pt has slept most of the day wakens easily, no complaints or acute changes this shift. call light in reach.
[2024-02-17 19:10] VITALS: BP 143/73
[2024-02-18 02:30] VITALS: BP 128/69
--- NOTE | 2024-02-18 04:06 | NUR ---
SHIFT SUMMARY. PATIENT IS A&OX4. PATIENT AMBULATES INDEPENDENTLY IN ROOM WITH A STEADY GAIT. PATIENT CALLS APPROPRIATELY AND IS ABLE TO MAKE HIS NEEDS KNOWN. PATIENT AWAKE OFF AND ON DURING BEGINNING OF SHIFT. PATIENT RESTED WELL T/O NIGHT WITH RESPIRATIONS EQUAL AND UNLABORED.
[2024-02-18] MEDS ORDERED: Sodium Phosphate 10 MM in Dextrose 5% 250 ML IV ONE (07:20)
[2024-02-18 07:34] VITALS: BP 134/76
[2024-02-18 09:19] LABS: Hematocrit 29.7 % (37.0-53.0); Hemoglobin 9.1 g/dL (13.5-17.5)
[2024-02-18 09:37] LABS: Albumin, Blood 3.5 g/dL (3.4-5.0); Anion Gap 8 mmol/L (3-11); Blood Urea Nitrogen 22 mg/dL (8-24); Bun/Creatinine Ratio 14.5 (12.0-20.0); CO2, Blood 29 mmol/L (21-32); Calcium, Blood 9.2 mg/dL (8.5-10.1); Chloride, Blood 108 mmol/L (98-108); Creatinine, Blood 1.52 mg/dL (0.60-1.20); Glomerular Filtration Rate 49 (60-); Glucose, Blood 150 mg/dL (70-99); Magnesium, Blood 2.1 mg/dL (1.6-2.4); Phosphorus, Blood 3.1 mg/dL (2.5-4.9); Potassium, Blood 3.9 mmol/L (3.5-5.5); Sodium, Blood 141 mmol/L (136-145)
--- NOTE | 2024-02-18 09:54 | NUR ---
PHYSICIAN CONTACT CALLED & REPORTED LAB RESULTS FOR RENAL PANEL, H&H, AND MAG. ORDER TO DISCONTINUE SODIUM PHOS PREVIOUSLY ORDERED. THIS WAS NOT GIVEN AND HELD IN PREPARATION FOR LAB RESULTS. STATED IF PT DC TODAY, THEN HAVE HIME FOLLOW UP ON SUNDAY AT 2 PM IN HIS OFFICE.
[2024-02-18 11:42] VITALS: BP 151/68
--- NOTE | 2024-02-18 12:19 | NUR ---
PHYSICIAN CONTACT-SUDDEN BACK PAIN PT C/O SUDDEN BACK PAIN 04/08. STATES IT IS MID-BACK AREA. NORCO GIVEN. PT STATES IT HAS NOT CHANGED HIS PAIN LEVEL, BUT HE IS VERY SLEEPY NOW. VITAL SIGNS OBTAINED & REVIEWED. DR. TOVAR NOTIFIED OF NEW PAIN AND THAT SENSITIVITY TO URINE CULTURE IS BACK. NO CHANGES AT THIS TIME.
--- NOTE | 2024-02-18 14:20 | NUR ---
PHYSICIAN CONTACT DR. PERALTA NOTIFIED THAT THE PATIENT IS COMPLAINING OF "BEING OFF" AND "NOT FEELING WELL". WHEN ASKED MORE ABOUT THIS PT STATED THAT HE IS NAUSEOUS, WEAKNESS, AND FEELS COLD. PT TEMP CHECKED. 98.6. DR. RESTREPO NOTIFIED. PLAN TO HOLD DC FOR NOW AND GE WILL COME BACK TO CHECK ON THE PATIENT IN A LITTLE WHILE.
[2024-02-18 15:49] VITALS: BP 125/71
--- NOTE | 2024-02-18 16:21 | NUR ---
Upon receiving a referral for spiritual care, I visited the patient. The patient tells me about the of his spouse and how he [facility]. He talks about his medical issues and his hopes moving forward. He shares about his Pentecostalism felisa and his membership at [facility]. He explains about how he now lives with his sister and her in [place]. I normalized his experience and provided therapeutic listening, grief support and prayer. Patient responded well and showed signs of being encouraged in his own felisa.
--- NOTE | 2024-02-18 17:44 | NUR ---
SHIFT SUMMARY PT FEELING BETTER THIS AFTERNOON. HAD NAUSEA TODAY AND WAS TREATED WITH ZOFRAN. BACK PAIN HAS SUBSIDED PER THE PATIENT. PT CONTINUES TO FEEL WEAK AND IS REQUESTING TO STAY ONE MORE NIGHT. DR. NERI IN TO SEE THE PATIENT THIS AFTERNOON AND AGREEABLE TO HAVING PT STAY ONE MORE NIGHT. NO OTHER ACUTE CHANGES IN ASSESSMENT AT THIS TIME. VS REVIEWED. CALL LIGHT IN REACH. DENIES OTHER NEEDS AT THIS TIME. UP ON SIDE OF BED, EATING DINNER AT THIS TIME.
[2024-02-18 19:38] VITALS: BP 118/53
--- NOTE | 2024-02-18 22:22 | NUR ---
PATIENT APPEARS TO BE SLEEPING AND DOES NOT APPEAR TO BE IN ANY DISTRESS.
--- NOTE | 2024-02-18 23:58 | NUR ---
PATIENT ACCIDENTALLY PUSHED CALL BUTTON. DENIES ANY NEEDS AT THIS TIME.
--- NOTE | 2024-02-19 01:48 | NUR ---
APPEARS TO BE SLEEPING AT THIS TIME. PATIENT DOES NOT APPEAR TO BE IN ANY DISTRESS.
[2024-02-19 02:13] VITALS: BP 128/62
--- NOTE | 2024-02-19 04:44 | NUR ---
SHIFT SUMMARY PATIENT IS ALERT AND ORIENTED X4. PLEASANT AND COOPERATIVE WITH CARE. PATIENT IS INDEPENDENT IN THE ROOM. PATIENT IS ABLE TO MAKE HIS NEEDS KNOWN AND USES THE CALL LIGHT APPROPRIATELY. PATIENT RECEIVES NIGHT MEDICATIONS AND SLEEPS FOR A FEW HOURS BEFORE WAKING AND WATCHING TELEVISION. PATIENT DENIES HAVING ANY NEEDS AT THIS TIME. PATIENT SLEEPS UNTIL LABS ARE DRAWN IN THE POWER PLANT SUPERVISOR. PLAN IS TO DISCHARGE HOME THIS MORNING WITH HOME HEALTH SERVICES LIKELY TO BE RESUMED AT THAT TIME. NO ACUTE CHANGES DURING SHIFT.
[2024-02-19 05:57] LABS: Hematocrit 28.2 % (37.0-53.0); Hemoglobin 8.5 g/dL (13.5-17.5)
[2024-02-19 06:44] LABS: Albumin, Blood 3.2 g/dL (3.4-5.0); Anion Gap 10 mmol/L (3-11); Blood Urea Nitrogen 24 mg/dL (8-24); Bun/Creatinine Ratio 13.6 (12.0-20.0); CO2, Blood 27 mmol/L (21-32); Calcium, Blood 9.2 mg/dL (8.5-10.1); Chloride, Blood 109 mmol/L (98-108); Creatinine, Blood 1.76 mg/dL (0.60-1.20); Glomerular Filtration Rate 41 (60-); Glucose, Blood 103 mg/dL (70-99); Magnesium, Blood 2.1 mg/dL (1.6-2.4); Phosphorus, Blood 4.1 mg/dL (2.5-4.9); Potassium, Blood 4.1 mmol/L (3.5-5.5); Sodium, Blood 142 mmol/L (136-145)
[2024-02-19] MEDS ORDERED: NS 1,000 ML IV SCH (07:35)
[2024-02-19 07:54] VITALS: BP 116/73
[2024-02-19] MEDS ORDERED: LevoFLOXacin 750 MG Tab PO ONE (11:45)
[2024-02-19] MEDS ORDERED: VISBIOME 112.51 EACH PO ×2 (13:56)
[2024-02-19] MEDS ORDERED: Flomax0.4 MG PO ×2 (13:56)
[2024-02-19] MEDS ORDERED: LEVOFLOXACIN750 MG PO ×2 (13:57)
--- NOTE | 2024-02-19 15:29 | NUR ---
DISCHARGE SUMMARY PT EDUCATED ON NEW MEDS THAT WERE SENT TO [facility]. PT GIVEN ABX DOSE TODAY AND INFORMED HE NEEDS TO START HIS ABX AT HOME TOMORROW. PT INSTRUCTED TO FOLLOW UP WITH PCP & NEPHROLOGY. IV REMOVED & INTACT. PT SHOWERED PRIOR TO DC TODAY. TOLERATED WELL INDEPENDENTLY. NO OTHER ACUTE CHAGNES IN ASSESSMENT AT THIS TIME. PT EDUCATED ON THE IMPORTANCE OF DYLAN CARE AND CHANGING HIS UNDERWEAR DAILY TO PREVENT FURTURE UTIS. PT STATES HE UNDERSTANDS AND HAS NO OTHER QUESTIONS AT THIS TIME.
== END 2024-02-19 15:09 | disposition home health service (06) | DRG 683 ==
LOC: ER 11:01 → MEDS 11:02
PROVIDERS: Internal Medicine Nephrology; Student in an Organized Health Care Education/Training Program; ADMIT Family Medicine
DX: N17.9 Acute kidney failure, unspecified (principal); N39.0 Urinary tract infection, site not specified; D63.1 Anemia in chronic kidney disease; N18.30 Chronic kidney disease, stage 3 unspecified; F17.210 Nicotine dependence, cigarettes, uncomplicated; M51.36 Other intervertebral disc degeneration, lumbar region; M48.061 Spinal stenosis, lumbar region without neurogenic claudication; E66.9 Obesity, unspecified; F12.90 Cannabis use, unspecified, uncomplicated; J44.9 Chronic obstructive pulmonary disease, unspecified; G62.9 Polyneuropathy, unspecified; I12.9 Hypertensive chronic kidney disease with stage 1 through stage 4 chronic kidney disease, or unspecified chronic kidney disease; E78.5 Hyperlipidemia, unspecified; K76.0 Fatty (change of) liver, not elsewhere classified; F10.20 Alcohol dependence, uncomplicated; G47.00 Insomnia, unspecified; R73.03 Prediabetes; N40.0 Benign prostatic hyperplasia without lower urinary tract symptoms; Z85.46 Personal history of malignant neoplasm of prostate; Z92.3 Personal history of irradiation; Z71.6 Tobacco abuse counseling; Z91.038 Other insect allergy status; R31.0 Gross hematuria; Z98.890 Other specified postprocedural states; Z79.899 Other long term (current) drug therapy; Z79.891 Long term (current) use of opiate analgesic; Z71.3 Dietary counseling and surveillance; I73.9 Peripheral vascular disease, unspecified; E83.39 Other disorders of phosphorus metabolism; B95.2 Enterococcus as the cause of diseases classified elsewhere; Z71.51 Drug abuse counseling and surveillance of drug abuser; Z68.36 Body mass index [BMI] 36.0-36.9, adult
CPT/HCPCS: 36415; 71260; 76770; 80053; 80069; 81001; 82248; 82550; 83735; 84100; 84550; 85014; 85018; 85025; 87077; 87086; 87186; 88108; 94760; 96360; 96361; 96365; 96366; 96367; 99284-25; A9270; G0103; G0378; J0290; J2405; J7030; J7060; Q9967

== ENCOUNTER → 2024-02-26 | Outpatient (CLI) | payer MEDICARE ==
[~2024-02-26] MED LIST changes: +Flomax0.4 MG PO; +LEVOFLOXACIN750 MG PO; +VISBIOME 112.51 EACH PO
== END ==
LOC: LAB 15:37 → LAB SHORT 15:37
DX: N39.0 Urinary tract infection, site not specified (principal); R31.9 Hematuria, unspecified
CPT/HCPCS: 87086

== ENCOUNTER 2024-04-29 17:18 | Inpatient (IN) | payer MEDICARE ==
[~2024-04-29] VITALS: Ht 177.8 cm; Wt 106.6 kg
[~2024-04-29 17:18] MED LIST changes: -BUPROPION XL150 M1 PO; -CARV6.25 PO; -LACT PO; -Trelegy Ellipta 100- INH; -VANCOCIN HCL125 MG PO; -XARELTO2.5 M1 PO
[2024-04-29 17:39] LABS: BASOPHILS ABSOLUTE AUTO 0.03 K/mm3 (0.00-0.23); BASOPHILS PERCENT AUTO 0 % (0-2); EOSINOPHILS ABSOLUTE AUTO 0.07 K/mm3 (0.00-0.68); EOSINOPHILS PERCENT AUTO 1 % (0-6); Hematocrit 36.5 % (37.0-53.0); IMMATURE GRAN ABSOLUTE AUTO 0.05 K/mm3 (0.00-0.10); IMMATURE GRAN PERCENT AUTO 0 % (0-1); LYMPHOCYTES ABSOLUTE AUTO 0.87 K/mm3 (0.84-5.20); LYMPHOCYTES PERCENT AUTO 7 % (21-46); MONOCYTES ABSOLUTE AUTO 1.08 K/mm3 (0.16-1.47); MONOCYTES PERCENT AUTO 9 % (4-13); Mean Corpuscular HGB 26.3 pg (26.0-34.0); Mean Corpuscular HGB Conc 30.1 g/dL (31.5-36.5); Mean Corpuscular Volume 87 fL (80-100); Mean Platelet Volume 9.2 fL (9.1-12.4); NEUTROPHILS ABSOLUTE AUTO 10.13 K/mm3 (1.96-9.15); NEUTROPHILS PERCENT AUTO 83 % (41-73); Platelet Count 310 K/mm3 (150-400); RDW Coefficient Variation 17.3 % (11.7-14.2); RDW Standard Deviation 55.8 fL (35.1-46.3); Red Blood Cell Count 4.19 M/mm3 (4.30-5.90); White Blood Cell Count 12.23 K/mm3 (4.00-11.30)
[2024-04-29 17:55] LABS: International Normalized Ratio 1.04; Prothrombin Time Results 11.1 Sec (9.7-11.5)
[2024-04-29 18:04] LABS: Albumin, Blood 3.1 g/dL (3.4-5.0); Albumin/Globulin Ratio 0.8 (0.8-1.8); Bilirubin, Total 0.3 mg/dL (0.1-1.0); Bun/Creatinine Ratio 13.3 (12.0-20.0); Calcium, Blood 8.7 mg/dL (8.5-10.1); Creatinine, Blood 4.65 mg/dL (0.60-1.20); Globulin, Blood 3.9 g/dL (2.2-4.0); Potassium, Blood 5.5 mmol/L (3.5-5.5)
[2024-04-29] MEDS ORDERED: NS 1,000 ML IV ONE (18:11)
[2024-04-29] MEDS ORDERED: NS 1,000 ML IV SCH ×3 (18:25→20:45)
[2024-04-29 20:02] LABS: Source, Urine Clean Catch
[2024-04-29 20:08] LABS: Blood, Urine 1+ (Neg); Glucose Qualitative, Urine Neg (Neg); Ketones, Urine Neg (Neg); Leukocyte Esterase, Urine 2+ (Neg); Nitrite, Urine Neg (Neg); Protein, Urine 2+ (Neg); Specific Gravity, Urine 1.025 (1.003-1.022); Urobilinogen, Urine NORM (Normal)
[2024-04-29 20:17] LABS: Appearance, Urine Hazy (Clear); Bilirubin, Urine 1+ (Neg); Color, Urine Amber (P-Yellow)
[2024-04-29 20:20] LABS: Amorphous Light (0-Heavy); Bacteria Mod /hpf; Granular Casts 0-2 /lpf (0); Mucus Mod (0-Heavy); Red Blood Cells, Urine 0-2 /hpf (0-2); Squamous Epithelial Cells Few /hpf (Few); White Blood Cells, Urine 25-50 /hpf (0-5)
[2024-04-29] MEDS ORDERED: Albuterol 2.5 MG/3 ML VIAL INH PRN (20:45)
[2024-04-29] MEDS ORDERED: Ondansetron HCl 2 MG / ML 2ML Vial IV PRN (20:45)
[2024-04-29] MEDS ORDERED: TraMADol HCl 50 MG Tab PO PRN (20:45)
[2024-04-29] MEDS ORDERED: FLU VACC TS2024-25(6MOS UP)/PF 45 MCG/0.5 ML SYRINGE IM SCH (20:50)
[2024-04-29] MEDS ORDERED: Acetaminophen 325 MG TABLET PO PRN (20:50)
[2024-04-29] MEDS ORDERED: LORazepam 2 MG/ML 1ML Injection IV PRN (20:50)
[2024-04-29] MEDS ORDERED: Trelegy Ellipta 100- INH (20:55)
[2024-04-29] MEDS ORDERED: CefTRIAXone Sodium 1,000 MG in NS 100 ML IV SCH (21:00)
[2024-04-29] MEDS ORDERED: Ipratropium/Albuterol SulF 2.5-0.5MG/3 ML Amp INH ONE (21:00)
[2024-04-29] MEDS ORDERED: Mometasone/Formoterol MDI 100/5 mcg 13 GM INH SCH (21:00)
[2024-04-29] MEDS ORDERED: Ipratropium Bromide INH 0.02% 0.5 mg/2.5ML Vial INH SCH ×2 (21:00→22:37)
[2024-04-29 21:09] LABS: Magnesium, Blood 2.2 mg/dL (1.6-2.4)
[2024-04-29] MEDS ORDERED: XARELTO2.5 M1 PO (21:20)
[2024-04-29] MEDS ORDERED: CARV6.25 PO (21:21)
[2024-04-29 22:01] VITALS: BP 95/60
--- NOTE | 2024-04-29 22:30 | NUR ---
ADMIT NOTE HANDOFF RECEIVED FROM PRECONSTRUCTION MANAGER MIGEL. PT ARRIVED TO FLOOR VIA GURNEY. PT ORIENTED TO UNIT. CALL BUTTON WITHIN REACH. TELEMETRY: TACHY @ 103 BPM. IV FLUIDS INFUSING ORDERED. ON RA.
[2024-04-30 00:32] LABS: Adenovirus F 40/41 Not Detected (NOT DETECT); Astrovirus Not Detected (NOT DETECT); Campylobacter Sp Not Detected (NOT DETECT); Cryptosporidium Not Detected (NOT DETECT); Cyclospora Cayetanensis Not Detected (NOT DETECT); E. Coli O157 Not Detected (NOT DETECT); Entamoeba Histolytica Not Detected (NOT DETECT); Enteroaggregative E. coli-EAEC Not Detected (NOT DETECT); Enteropathogenic E. coli-EPEC Not Detected (NOT DETECT); Enterotoxigenic E. coli-ETEC Not Detected (NOT DETECT); Giardia Lamblia Not Detected (NOT DETECT); Norovirus GI/GII Not Detected (NOT DETECT); Plesiomonas Shigelloides Not Detected (NOT DETECT); Rotavirus A Not Detected (NOT DETECT); Salmonella Sp Not Detected (NOT DETECT); Sapovirus Not Detected (NOT DETECT); Shiga Toxin-prod E. coli-STEC Not Detected (NOT DETECT); Shigella/Enteroin E. coli-EIEC Not Detected (NOT DETECT); Vibrio Cholerae Not Detected (NOT DETECT); Vibrio Sp Not Detected (NOT DETECT); Yersinia Enterocolitica Not Detected (NOT DETECT)
--- NOTE | 2024-04-30 03:42 | NUR ---
SHIFT SUMMARY ADMITTED FOR AD ON CKD. FULL CODE. ALSO FOUND TO HAVE UTI. IV FLUIDS RE INFUSING. IV ANTIB RX ARE SCHEDULED. TELEMETRY: TACHY @ 103 BPM. CONTACT [facility] PRECAUTIONS FOR C. DIF+. BLOOD CX'S HAVE BEEN COLLECTED BY LAB. HE USES A WC AT HOME WHERE HE LIVES WITH FAMILY. HE IS VERY WEAK WITH A RECENT HX OF FREQUENT FALLS, HE IS BEDREST AT THIS TIME. SOFT BP'S NOTED. HE IS A VA PATIENT.
[2024-04-30 03:49] VITALS: BP 119/64
[2024-04-30 06:03] LABS: BASOPHILS ABSOLUTE AUTO 0.04 K/mm3 (0.00-0.23); BASOPHILS PERCENT AUTO 0 % (0-2); EOSINOPHILS ABSOLUTE AUTO 0.18 K/mm3 (0.00-0.68); EOSINOPHILS PERCENT AUTO 2 % (0-6); Hemoglobin 9.9 g/dL (13.5-17.5); IMMATURE GRAN ABSOLUTE AUTO 0.04 K/mm3 (0.00-0.10); IMMATURE GRAN PERCENT AUTO 0 % (0-1); LYMPHOCYTES ABSOLUTE AUTO 1.12 K/mm3 (0.84-5.20); LYMPHOCYTES PERCENT AUTO 11 % (21-46); MONOCYTES PERCENT AUTO 9 % (4-13); Mean Corpuscular HGB 25.9 pg (26.0-34.0); Mean Corpuscular HGB Conc 29.1 g/dL (31.5-36.5); Mean Corpuscular Volume 89 fL (80-100); Mean Platelet Volume 9.1 fL (9.1-12.4); NEUTROPHILS ABSOLUTE AUTO 8.05 K/mm3 (1.96-9.15); NEUTROPHILS PERCENT AUTO 78 % (41-73); Platelet Count 242 K/mm3 (150-400); RDW Coefficient Variation 17.3 % (11.7-14.2); RDW Standard Deviation 56.6 fL (35.1-46.3); Red Blood Cell Count 3.82 M/mm3 (4.30-5.90); White Blood Cell Count 10.33 K/mm3 (4.00-11.30)
[2024-04-30 06:34] LABS: Albumin, Blood 2.6 g/dL (3.4-5.0); Albumin/Globulin Ratio 0.7 (0.8-1.8); Bilirubin, Total 0.1 mg/dL (0.1-1.0); Bun/Creatinine Ratio 21.1 (12.0-20.0); Calcium, Blood 8.1 mg/dL (8.5-10.1); Creatinine, Blood 2.51 mg/dL (0.60-1.20); Globulin, Blood 3.7 g/dL (2.2-4.0); Magnesium, Blood 2.1 mg/dL (1.6-2.4); Potassium, Blood 4.4 mmol/L (3.5-5.5); Total Protein, Blood 6.3 g/dL (6.4-8.2)
--- NOTE | 2024-04-30 06:59 | NUR ---
BEDSIDE REPORT COMPLETED- WITH NIGHT RN RAVI. PT ALERT ORIENTED, IMPULSIVE AND A FALL RISK D/T NEW DIZZINESS R/T RECENT ILLNESS. URINAL AND BED BOLES ARE BEING USED, ATTENDS IN PLACE FOR ACCIDENTS R/T PT C-DIFF POSSITIVE DIARHHEA. PT IN CONTACT [facility] FOR ENTERIC PRECAUTIONS. PT IN BED, CALL LIGHT IN REACH, BED ALARM SET FOR PT SAFETY. NO S&S OF DISTRESS AT THE TIME OF REPORT.
[2024-04-30 07:35] VITALS: BP 128/82
[2024-04-30] MEDS ORDERED: Tamsulosin HCl 0.4 MG Cap PO SCH (09:00)
[2024-04-30] MEDS ORDERED: Vancomycin HCl 250 MG Cap PO SCH (09:38)
[2024-04-30] MEDS ORDERED: Lactobacil 2-S.Thermo-Bifido 1 1 Cap PO SCH ×2 (09:38→21:00)
--- NOTE | 2024-04-30 15:11 | NUR ---
Upon receiving a referral for spiritual care, I visited the patient. He tells me about his recovery from decades of drugs, alcohol and horrible decisions. He told me that he was able to hold down jobs at times up to 12yrs while being completely fried on drugs. He also was able to have decades of marriage that ended with his spouse's from cancer in 2014 while drinking two quarts of whiskey a day and cocaine and other drugs on top of that. Patient tells me that he has been clean and sober since his 's or shortly there after and that he has found his strength in his Yarsanism felisa and his family (pt lives with his sister and her ). I highlighted his courage, reinforced helpful attitudes and practices and provided therapeutic listening and prayer. Patient responded well and showed signs of being encouraged in his felisa and sobriety.
[2024-04-30] MEDS ORDERED: Gabapentin 400 MG Cap PO ONE (16:00)
[2024-04-30] MEDS ORDERED: TRELEGY ELLIPTA INHALER INH SCH (16:05)
[2024-04-30 16:23] VITALS: BP 128/71
[2024-04-30] MEDS ORDERED: Carvedilol 6.25 MG Tab PO SCH (17:00)
[2024-04-30 17:40] VITALS: BP 123/68
[2024-04-30] MEDS ORDERED: BUPROPION XL150 M1 PO (17:42)
--- NOTE | 2024-04-30 19:26 | NUR ---
SHIFT SUMMARY- PT WAS UP IN THE ROOM WITH PT AND OT TODAY. HE WAS ABLE TO AMBULATE 1PA WITH A GAITBELT. HIS HOME MEDS WERE ORDERED THIS AFTERNOON. PT HAS BEEN UP IN THE CHAIR SINCE HE WORKED WITH THERAPY. PT SEEMS TO HAVE A LOT MORE ENERGY THIS EVENIGN AND HE IS HAPPY TO PLAN TO DC HOME WITH HOME HEALTH TOMORROW. PT IN THE CHAIR WITH THE CALL LIGHT IN REACH NO S&S OF DISTRESS NOTED, CHAIR ALARM IN PLACE FOR PT SAFETY.
[2024-04-30 19:38] VITALS: BP 142/77
[2024-04-30] MEDS ORDERED: Gabapentin 300 MG Cap PO SCH (21:00)
[2024-04-30] MEDS ORDERED: Rivaroxaban 2.5 MG TABLET PO SCH (21:00)
[2024-04-30] MEDS ORDERED: Lactated Ringer's 1,000 ML IV SCH (21:00)
[2024-04-30] MEDS ORDERED: AmLODIPine Besylate 5 MG Tab PO SCH (21:00)
[2024-04-30] MEDS ORDERED: TraZODone HCl 100 MG Tab PO SCH (21:00)
[2024-05-01] MEDS ORDERED: Ipratropium/Albuterol SulF 2.5-0.5MG/3 ML Amp INH SCH (02:00)
[2024-05-01] MEDS ORDERED: LORazepam 2 MG/ML 1ML Injection IV ONE (02:00)
--- NOTE | 2024-05-01 02:04 | NUR ---
CALLED HOSPITALIST INFORMED HIM THAT THE PT WAS WHEEZING. HE STATES HE FEELS SOB AND ANXIOUS. HE HAD BEEN GIVEN ATIVAN EARLIER AND AN RT TX. IV FLUIDS WERE CHANGED EARLIER THIS SHIFT FROM NS TO LR. I CAN HEAR THE INCREASED WHEEZING CLEARLY AUDIBLE WITH NO STETHOSCOPE. THE HOSPITALIST ENTERED NEW ORDERS IN THE EMAR.
--- NOTE | 2024-05-01 03:49 | NUR ---
SHIFT SUMMARY ADMITTED FOR AD ON CKD/UTI. FULL CODE. ANTIB RX ARE SCHEDULED. IV FLUIDS INFUSING. TELEMETRY: NSR @ 95 BPM. [facility] PATIENT. HE IS ON XARELTO. HX OF FREQUENT FALLS. A&O X3, IMPULSIVE AT TIMES. BED ALARM IS ACTIVE. 1 ASSIST W/FWW & GB - BRP. BLOOD CULTURES PENDING. ANXIETY AND WHEEZING THIS SHIFT, SEE PREVIOUS NOTE. REPORT HX OF LEFT LEG NUMBNESS. USES A WC AT HOME. HE IS HOPEFUL FOR DISCHARGE SOON. RT TX'S ARE AVAILABLE.
[2024-05-01 05:15] VITALS: BP 129/85
[2024-05-01 05:25] LABS: BASOPHILS ABSOLUTE AUTO 0.05 K/mm3 (0.00-0.23); BASOPHILS PERCENT AUTO 1 % (0-2); EOSINOPHILS ABSOLUTE AUTO 0.28 K/mm3 (0.00-0.68); EOSINOPHILS PERCENT AUTO 4 % (0-6); Hematocrit 32.4 % (37.0-53.0); Hemoglobin 9.5 g/dL (13.5-17.5); IMMATURE GRAN ABSOLUTE AUTO 0.03 K/mm3 (0.00-0.10); IMMATURE GRAN PERCENT AUTO 0 % (0-1); LYMPHOCYTES PERCENT AUTO 14 % (21-46); MONOCYTES ABSOLUTE AUTO 0.56 K/mm3 (0.16-1.47); MONOCYTES PERCENT AUTO 7 % (4-13); Mean Corpuscular HGB Conc 29.3 g/dL (31.5-36.5); Mean Corpuscular Volume 89 fL (80-100); Mean Platelet Volume 9.1 fL (9.1-12.4); NEUTROPHILS ABSOLUTE AUTO 6.08 K/mm3 (1.96-9.15); NEUTROPHILS PERCENT AUTO 75 % (41-73); Platelet Count 251 K/mm3 (150-400); RDW Coefficient Variation 17.1 % (11.7-14.2); RDW Standard Deviation 55.8 fL (35.1-46.3); Red Blood Cell Count 3.65 M/mm3 (4.30-5.90)
[2024-05-01 05:55] LABS: Albumin, Blood 2.8 g/dL (3.4-5.0); Albumin/Globulin Ratio 0.8 (0.8-1.8); Bilirubin, Total 0.2 mg/dL (0.1-1.0); Bun/Creatinine Ratio 20.8 (12.0-20.0); Calcium, Blood 8.4 mg/dL (8.5-10.1); Creatinine, Blood 1.49 mg/dL (0.60-1.20); Globulin, Blood 3.7 g/dL (2.2-4.0); Potassium, Blood 4.7 mmol/L (3.5-5.5); Total Protein, Blood 6.5 g/dL (6.4-8.2)
[2024-05-01 07:31] VITALS: BP 136/73
--- NOTE | 2024-05-01 08:02 | NUR ---
Pt sitting up in a chair for breakfast, a/ox4, pleasant and cooperative with care, follows commands well, denies pain at this time, lungs have exp wheezing, dim in bases, resp even and unlabored, no cough noted, hrr, tele in place running sr per monitor, see strip, 2+edema noted to b/l le, teds in place, piv to lac site is clear and patent, btx4, abd flat soft nontender, voids without diff, skin c/w/d, maew, hever, call light in reach.
[2024-05-01] MEDS ORDERED: Gabapentin 300 MG Cap PO SCH ×2 (09:00→21:00)
[2024-05-01] MEDS ORDERED: Atorvastatin 40 MG Tab PO SCH (09:00)
[2024-05-01] MEDS ORDERED: buPROPion HCL 150 MG TAB.SR.12H PO SCH (09:00)
--- NOTE | 2024-05-01 15:48 | NUR ---
Spiritual care visit conducted. Patient is sitting on a chair and feeling much imporved. He shares his desire to go to a SNF for rehab so that he is not too much of a burden on his family in his weakened state. He shares personal stories to which I provided theological insights and then I provided prayer. Patient responded well and showed signs of reduced stress.
[2024-05-01 16:26] VITALS: BP 142/68
--- NOTE | 2024-05-01 18:20 | NUR ---
Pt sat up in chair most of the day, doing well, medicated for pain once, ativan once, lost iv due to leaking, charge nurse placed another, no further changes this shift. call light in reach.
[2024-05-01 20:09] VITALS: BP 154/80
[2024-05-02 03:27] VITALS: BP 155/89
--- NOTE | 2024-05-02 03:44 | NUR ---
SHIFT SUMMARY PT IS A&O X 3-4, ABLE TO MAKE HIS NEEDS KNOWN, 1-PERSON ASSIST WITH FWW TO THE RESTROOM. LUNG SOUNDS EXPIRATORY WHEEZING UPPER LOBES, DIMINISHED LL'S PER AUSCULTATION. NO COUGH NOTED DURING THIS SHIFT. TELE: SR@83. TRAZADONE AND PRN TRAMADOL ADMINISTERED AT HS. PT HAS CHRONIC LOW BACK PAIN SHOOTING DOWN THE LEGS, AND SOME NUMBNESS ON FEET, PER PT STATEMENT. TRAMADOL EFFECTIVE FOR 9/10 PAIN. PRN ATIVAN EFFECTIVE FOR MILD ANXIETY PER PT REPORT. LR @75MLS/HR INFUSING ORDERED. PT HAS PO VANCO. NO ACUTE EVENTS DURING THIS SHIFT. PT APPEARED RESTING 6+HRS DURING THIS SHIFT. NO OTHER COMPLAINTS OFFERED. BED AT THE LOWEST POSITION, CALL LIGHT W/II REACH.
[2024-05-02 05:52] LABS: BASOPHILS ABSOLUTE AUTO 0.04 K/mm3 (0.00-0.23); BASOPHILS PERCENT AUTO 1 % (0-2); EOSINOPHILS ABSOLUTE AUTO 0.25 K/mm3 (0.00-0.68); EOSINOPHILS PERCENT AUTO 3 % (0-6); Hematocrit 34.4 % (37.0-53.0); Hemoglobin 10.2 g/dL (13.5-17.5); IMMATURE GRAN ABSOLUTE AUTO 0.03 K/mm3 (0.00-0.10); IMMATURE GRAN PERCENT AUTO 0 % (0-1); LYMPHOCYTES ABSOLUTE AUTO 0.97 K/mm3 (0.84-5.20); LYMPHOCYTES PERCENT AUTO 13 % (21-46); MONOCYTES ABSOLUTE AUTO 0.56 K/mm3 (0.16-1.47); MONOCYTES PERCENT AUTO 7 % (4-13); Mean Corpuscular HGB 26.6 pg (26.0-34.0); Mean Corpuscular HGB Conc 29.7 g/dL (31.5-36.5); Mean Corpuscular Volume 90 fL (80-100); Mean Platelet Volume 9.2 fL (9.1-12.4); NEUTROPHILS ABSOLUTE AUTO 5.73 K/mm3 (1.96-9.15); NEUTROPHILS PERCENT AUTO 76 % (41-73); Platelet Count 283 K/mm3 (150-400); RDW Standard Deviation 55.5 fL (35.1-46.3); Red Blood Cell Count 3.84 M/mm3 (4.30-5.90); White Blood Cell Count 7.58 K/mm3 (4.00-11.30)
[2024-05-02 06:41] LABS: Albumin, Blood 3.1 g/dL (3.4-5.0); Albumin/Globulin Ratio 0.8 (0.8-1.8); Bilirubin, Total 0.2 mg/dL (0.1-1.0); Bun/Creatinine Ratio 20.9 (12.0-20.0); Calcium, Blood 9.3 mg/dL (8.5-10.1); Creatinine, Blood 1.1 mg/dL (0.60-1.20); Globulin, Blood 3.9 g/dL (2.2-4.0); Potassium, Blood 4.7 mmol/L (3.5-5.5)
[2024-05-02 07:20] VITALS: BP 163/91
[2024-05-02] MEDS ORDERED: Tamsulosin HCl 0.4 MG Cap PO SCH (09:00)
--- NOTE | 2024-05-02 09:37 | NUR ---
pt sitting up in chair for breakfast, a/ox4, pleasant and cooperative with care, follows commands well, reports back pain, not time for pain meds yet, lungs have some exp wheezing t/o, dim in bases, on r/a, no cough noted, hrr, tele in place running sr with first degree block, edema to b/l le, has raven hose in place, piv to lac site is clear and patent, btx4, abd flat soft nontender, states loose stools are slowing, voids without diff, skin c/w/d, maew, uses walker to ambulate, hever, call light in reach.
[2024-05-02] MEDS ORDERED: LACT PO (12:55)
[2024-05-02] MEDS ORDERED: VANCOCIN HCL125 MG PO (12:57)
--- NOTE | 2024-05-02 14:22 | NUR ---
Pt has been discharged to home, went over instructions, he verbalized understanding, iv removed intact, new meds faxed to [facility], left via wheelchair with all his belongings with vice president financial in attendance.
== END 2024-05-02 14:13 | disposition home health service (06) | DRG 372 ==
LOC: ER 17:18 → MEDS 20:43 → ENPENDDIS 05-02 12:17 → MEDS 05-02 14:13
PROVIDERS: Emergency Medicine; Family Medicine; Nurse Practitioner Acute Care; ADMIT Student in an Organized Health Care Education/Training Program
DX: A04.72 Enterocolitis due to Clostridium difficile, not specified as recurrent (principal); N17.9 Acute kidney failure, unspecified; N39.0 Urinary tract infection, site not specified; I12.9 Hypertensive chronic kidney disease with stage 1 through stage 4 chronic kidney disease, or unspecified chronic kidney disease; J44.9 Chronic obstructive pulmonary disease, unspecified; N18.30 Chronic kidney disease, stage 3 unspecified; E78.5 Hyperlipidemia, unspecified; R31.9 Hematuria, unspecified; I73.9 Peripheral vascular disease, unspecified; Z91.030 Bee allergy status; I95.89 Other hypotension; E86.0 Dehydration; N40.1 Benign prostatic hyperplasia with lower urinary tract symptoms; R33.8 Other retention of urine; G62.9 Polyneuropathy, unspecified; Z85.46 Personal history of malignant neoplasm of prostate; Z91.038 Other insect allergy status; Z87.891 Personal history of nicotine dependence; Z98.890 Other specified postprocedural states
CPT/HCPCS: 36415; 36416; 71045; 76770; 80053; 81001; 83735; 85025; 85379; 85610; 85730; 87040; 87086; 87324; 87507; 93005; 93010; 94640; 94664; 94760; 96360; 96361; 97110; 97116; 97161; 97165; 97530; 97535; 99285-25; A9270; J0696; J2060; J7030; J7120

== ENCOUNTER → 2024-04-29 | Outpatient (CLI) | payer MEDICARE ==
[~2024-04-29] MED LIST changes: +AMLO10 PO; -AMLO5 PO; +BUPROPION XL150 M1 PO; +CARV6.25 PO; +LACT PO; +Trelegy Ellipta 100- INH; +VANCOCIN HCL125 MG PO; +XARELTO2.5 M1 PO
[2024-04-29 17:03] LABS: BASOPHILS ABSOLUTE AUTO 0.04 K/mm3 (0.00-0.23); BASOPHILS PERCENT AUTO 0 % (0-2); EOSINOPHILS ABSOLUTE AUTO 0.08 K/mm3 (0.00-0.68); EOSINOPHILS PERCENT AUTO 1 % (0-6); Hemoglobin 11.6 g/dL (13.5-17.5); IMMATURE GRAN ABSOLUTE AUTO 0.06 K/mm3 (0.00-0.10); IMMATURE GRAN PERCENT AUTO 1 % (0-1); LYMPHOCYTES PERCENT AUTO 8 % (21-46); MONOCYTES ABSOLUTE AUTO 0.82 K/mm3 (0.16-1.47); MONOCYTES PERCENT AUTO 6 % (4-13); Mean Corpuscular HGB 26.1 pg (26.0-34.0); Mean Corpuscular HGB Conc 30.5 g/dL (31.5-36.5); Mean Corpuscular Volume 85 fL (80-100); NEUTROPHILS ABSOLUTE AUTO 11.33 K/mm3 (1.96-9.15); NEUTROPHILS PERCENT AUTO 85 % (41-73); Platelet Count 332 K/mm3 (150-400); RDW Coefficient Variation 17.6 % (11.7-14.2); RDW Standard Deviation 54.4 fL (35.1-46.3); Red Blood Cell Count 4.45 M/mm3 (4.30-5.90); White Blood Cell Count 13.33 K/mm3 (4.00-11.30)
[2024-04-29 17:14] LABS: Albumin, Blood 3.2 g/dL (3.4-5.0); Albumin/Globulin Ratio 0.7 (0.8-1.8); Bilirubin, Total 0.6 mg/dL (0.1-1.0); Bun/Creatinine Ratio 13.2 (12.0-20.0); Calcium, Blood 9.1 mg/dL (8.5-10.1); Creatinine, Blood 4.92 mg/dL (0.60-1.20); Globulin, Blood 4.6 g/dL (2.2-4.0); Potassium, Blood 5.3 mmol/L (3.5-5.5); Total Protein, Blood 7.8 g/dL (6.4-8.2)
== END | disposition home or self-care (01) ==
LOC: LAB 16:59 → LAB SHORT 16:59
PROVIDERS: Family Medicine
DX: I95.9 Hypotension, unspecified (principal)
CPT/HCPCS: 80053; 85025; 85379

== ENCOUNTER 2024-09-19 18:21 | Inpatient (IN) | payer MEDICARE ==
[~2024-09-19] VITALS: Ht 175.3 cm; Wt 108.7 kg
[~2024-09-19 18:21] MED LIST changes: +BUPROPION XL150 M1 PO; +CARV6.25 PO; +GABA100 PO; +LACT PO; -Neurontin 300300 MG PO; +Trelegy Ellipta 100- INH; +VANCOCIN HCL125 MG PO; +XARELTO2.5 M1 PO
[2024-09-19 18:54] LABS: BASOPHILS ABSOLUTE AUTO 0.05 K/mm3 (0.00-0.23); BASOPHILS PERCENT AUTO 1 % (0-2); EOSINOPHILS ABSOLUTE AUTO 0.32 K/mm3 (0.00-0.68); EOSINOPHILS PERCENT AUTO 3 % (0-6); Hematocrit 35.2 % (37.0-53.0); Hemoglobin 11.1 g/dL (13.5-17.5); IMMATURE GRAN ABSOLUTE AUTO 0.05 K/mm3 (0.00-0.10); IMMATURE GRAN PERCENT AUTO 1 % (0-1); LYMPHOCYTES ABSOLUTE AUTO 1.66 K/mm3 (0.84-5.20); LYMPHOCYTES PERCENT AUTO 15 % (21-46); MONOCYTES ABSOLUTE AUTO 1.12 K/mm3 (0.16-1.47); MONOCYTES PERCENT AUTO 10 % (4-13); Mean Corpuscular HGB 28.3 pg (26.0-34.0); Mean Corpuscular HGB Conc 31.5 g/dL (31.5-36.5); Mean Corpuscular Volume 90 fL (80-100); Mean Platelet Volume 9.3 fL (9.1-12.4); NEUTROPHILS ABSOLUTE AUTO 7.58 K/mm3 (1.96-9.15); NEUTROPHILS PERCENT AUTO 70 % (41-73); Platelet Count 288 K/mm3 (150-400); RDW Coefficient Variation 17.9 % (11.7-14.2); RDW Standard Deviation 59.2 fL (35.1-46.3); Red Blood Cell Count 3.92 M/mm3 (4.30-5.90); White Blood Cell Count 10.78 K/mm3 (4.00-11.30)
[2024-09-19 19:18] LABS: Albumin, Blood 3.4 g/dL (3.4-5.0); Albumin/Globulin Ratio 0.9 (0.8-1.8); Bilirubin, Total 0.4 mg/dL (0.1-1.0); Bun/Creatinine Ratio 11.2 (12.0-20.0); Calcium, Blood 8.1 mg/dL (8.5-10.1); Creatinine, Blood 6.26 mg/dL (0.60-1.20); Globulin, Blood 3.8 g/dL (2.2-4.0); Potassium, Blood 5.5 mmol/L (3.5-5.5); Total Protein, Blood 7.2 g/dL (6.4-8.2)
[2024-09-19] MEDS ORDERED: NS 1,000 ML IV SCH (19:40)
[2024-09-19 20:09] LABS: Source, Urine Clean Catch
[2024-09-19 20:13] LABS: Appearance, Urine Cloudy (Clear); Bilirubin, Urine Neg (Neg); Blood, Urine 3+ (Neg); Color, Urine Yellow (P-Yellow); Glucose Qualitative, Urine Neg (Neg); Ketones, Urine Neg (Neg); Leukocyte Esterase, Urine 2+ (Neg); Nitrite, Urine Neg (Neg); Protein, Urine 2+ (Neg); Specific Gravity, Urine 1.025 (1.003-1.022); Urobilinogen, Urine NORM (Normal)
[2024-09-19 20:21] LABS: Bacteria Many /hpf; Red Blood Cells, Urine 25-50 /hpf (0-2); Squamous Epithelial Cells Mod /hpf (Few); Transitional Epithelial Cells Few /hpf (0-Rare); White Blood Cells, Urine TNTC /hpf (0-5)
[2024-09-19] MEDS ORDERED: CefTRIAXone Sodium 1,000 MG in NS 100 ML IV ONE (20:50)
[2024-09-19] MEDS ORDERED: AMLODIPINE BESY10 MG PO (21:43)
[2024-09-19] MEDS ORDERED: LOSA50 PO (21:46)
[2024-09-19] MEDS ORDERED: Acetaminophen 325 MG TABLET PO PRN (22:35)
[2024-09-19] MEDS ORDERED: Ondansetron HCl 2 MG / ML 2ML Vial IV PRN (22:35)
[2024-09-19] MEDS ORDERED: FLU VACC TS2024-25(6MOS UP)/PF 45 MCG/0.5 ML SYRINGE IM ONE (22:35)
[2024-09-19] MEDS ORDERED: Heparin Sodium 5000 Units/ML 1ML MDV SC SCH (23:00)
[2024-09-19 23:05] LABS: Source, Urine Straight Cath
[2024-09-19 23:07] LABS: Bilirubin, Urine Neg (Neg); Blood, Urine 1+ (Neg); Glucose Qualitative, Urine Neg (Neg); Ketones, Urine Neg (Neg); Leukocyte Esterase, Urine 1+ (Neg); Nitrite, Urine Neg (Neg); Protein, Urine 2+ (Neg); Specific Gravity, Urine 1.025 (1.003-1.022); Urobilinogen, Urine NORM (Normal)
[2024-09-19 23:42] LABS: Appearance, Urine Hazy (Clear); Color, Urine Yellow (P-Yellow)
[2024-09-19 23:43] LABS: Bacteria Mod /hpf; Hyaline Casts 0-2 /lpf (0-2); Red Blood Cells, Urine 0-2 /hpf (0-2); Squamous Epithelial Cells Mod /hpf (Few)
[2024-09-20] MEDS ORDERED: Sodium Bicarb 8.4% Inj 75 MEQ in Sodium Chloride 0.45% 1,000 ML IV SCH (00:30)
[2024-09-20] MEDS ORDERED: NS 1,000 ML IV SCH (01:30)
[2024-09-20 07:14] LABS: BASOPHILS ABSOLUTE AUTO 0.05 K/mm3 (0.00-0.23); BASOPHILS PERCENT AUTO 1 % (0-2); EOSINOPHILS PERCENT AUTO 4 % (0-6); Hematocrit 32.2 % (37.0-53.0); IMMATURE GRAN ABSOLUTE AUTO 0.05 K/mm3 (0.00-0.10); IMMATURE GRAN PERCENT AUTO 1 % (0-1); LYMPHOCYTES ABSOLUTE AUTO 1.38 K/mm3 (0.84-5.20); LYMPHOCYTES PERCENT AUTO 16 % (21-46); MONOCYTES ABSOLUTE AUTO 0.85 K/mm3 (0.16-1.47); MONOCYTES PERCENT AUTO 10 % (4-13); Mean Corpuscular HGB 27.9 pg (26.0-34.0); Mean Corpuscular HGB Conc 31.1 g/dL (31.5-36.5); Mean Corpuscular Volume 90 fL (80-100); Mean Platelet Volume 9.5 fL (9.1-12.4); NEUTROPHILS ABSOLUTE AUTO 5.76 K/mm3 (1.96-9.15); NEUTROPHILS PERCENT AUTO 69 % (41-73); Platelet Count 234 K/mm3 (150-400); RDW Coefficient Variation 17.8 % (11.7-14.2); RDW Standard Deviation 58.4 fL (35.1-46.3); Red Blood Cell Count 3.59 M/mm3 (4.30-5.90); White Blood Cell Count 8.39 K/mm3 (4.00-11.30)
[2024-09-20 07:29] LABS: Albumin/Globulin Ratio 0.9 (0.8-1.8); Bilirubin, Total 0.2 mg/dL (0.1-1.0); Bun/Creatinine Ratio 17.3 (12.0-20.0); Creatinine, Blood 3.71 mg/dL (0.60-1.20); Globulin, Blood 3.5 g/dL (2.2-4.0); Potassium, Blood 4.6 mmol/L (3.5-5.5); Total Protein, Blood 6.5 g/dL (6.4-8.2)
[2024-09-20 10:00] VITALS: BP 129/70
[2024-09-20 10:21] VITALS: BP 139/60
[2024-09-20] MEDS ORDERED: METO50ER PO (10:35)
[2024-09-20] MEDS ORDERED: FERSU300 PO (10:36)
[2024-09-20] MEDS ORDERED: THERA-D2000 UNIT PO (10:37)
[2024-09-20] MEDS ORDERED: Sodium Bicarb 8.4% Inj 100 MEQ in Sodium Chloride 0.45% 1,000 ML IV SCH (12:10)
--- NOTE | 2024-09-20 12:40 | NUR ---
PATIENT ARRIVED TO PCU FROM ED AT 1012 THIS AM. A/OX4, ABLE TO TRANSFER 1 MIN ASSIST FROM [facility] TO BED. ON ROOM AIR. TELE PLACED. RUNNING BICARB ON ARRIVAL. SKIN INTACT PER 2 RN CHECK. STATED HE WILL HAVE SISTER BRING IN POWER OF TOOL RENTAL TECHNICIAN PAPERWORK AND POLST, VERBALLY ACKNOWLEDGED HE WOULD LIKE TO REMAIN FULL CODE STATUS. RESTING IN BED EYES CLOSED OCCASSIONALLY.
--- NOTE | 2024-09-20 13:17 | NUR ---
DOC IN ROOM DR TOVAR ROUNDING ON PATIENT. STATED PT RESPONDING WELL TO FLUIDS, HE ANTICIPATES ANOTHER COUPLE DAYS AND NO NEED FOR NEPHROLOGY AT THIS TIME.
[2024-09-20 16:18] VITALS: BP 134/67
--- NOTE | 2024-09-20 18:20 | NUR ---
SHIFT SUMMARY PATIENT IN BED THIS SHIFT. ABLE TO TRANSFER 1 ASSIST TO BED, USING URINAL. TOELRATING BICARB DRIP WELL, WILL HAVE LABS IN AM. A/O X4. C/O CHRONIC BACK PAIN, STATES HE USES MARIJUANA FOR THE PAIN, DECLINED NEEDING PAIN MEDS IN SPIVEY OF MARIJUANA AT THIS TIME. EATING REGULAR DIET. ABLE TO MAKE NEEDS KNOWN.
[2024-09-20 19:17] VITALS: BP 142/51
[2024-09-20] MEDS ORDERED: Mometasone/Formoterol MDI 100/5 mcg 13 GM INH SCH (19:30)
[2024-09-20] MEDS ORDERED: Albuterol HFA200 ACT/6.7 GM INH INH PRN (19:30)
[2024-09-20] MEDS ORDERED: Tiotropium Bromide 2.5 MCG/ACT MIST INHAL (10 ACT/4 GM) INH SCH (19:30)
[2024-09-20] MEDS ORDERED: Losartan Potassium 50 MG Tab PO SCH (21:00)
[2024-09-20] MEDS ORDERED: CefTRIAXone Sodium 1,000 MG in NS 100 ML IV SCH (21:00)
[2024-09-20] MEDS ORDERED: TraZODone HCl 100 MG Tab PO SCH (21:00)
[2024-09-20] MEDS ORDERED: Rivaroxaban 2.5 MG TABLET PO SCH (21:00)
[2024-09-21 00:12] VITALS: BP 132/63
[2024-09-21 03:33] VITALS: BP 115/53
[2024-09-21 04:39] LABS: BASOPHILS ABSOLUTE AUTO 0.04 K/mm3 (0.00-0.23); BASOPHILS PERCENT AUTO 1 % (0-2); EOSINOPHILS ABSOLUTE AUTO 0.23 K/mm3 (0.00-0.68); EOSINOPHILS PERCENT AUTO 3 % (0-6); Hematocrit 32.5 % (37.0-53.0); Hemoglobin 10.1 g/dL (13.5-17.5); IMMATURE GRAN ABSOLUTE AUTO 0.03 K/mm3 (0.00-0.10); IMMATURE GRAN PERCENT AUTO 0 % (0-1); LYMPHOCYTES ABSOLUTE AUTO 1.11 K/mm3 (0.84-5.20); LYMPHOCYTES PERCENT AUTO 16 % (21-46); MONOCYTES ABSOLUTE AUTO 0.65 K/mm3 (0.16-1.47); MONOCYTES PERCENT AUTO 9 % (4-13); Mean Corpuscular HGB 27.7 pg (26.0-34.0); Mean Corpuscular HGB Conc 31.1 g/dL (31.5-36.5); Mean Corpuscular Volume 89 fL (80-100); Mean Platelet Volume 9.8 fL (9.1-12.4); NEUTROPHILS ABSOLUTE AUTO 5.09 K/mm3 (1.96-9.15); NEUTROPHILS PERCENT AUTO 71 % (41-73); Platelet Count 243 K/mm3 (150-400); RDW Coefficient Variation 17.4 % (11.7-14.2); RDW Standard Deviation 57.1 fL (35.1-46.3); Red Blood Cell Count 3.64 M/mm3 (4.30-5.90); White Blood Cell Count 7.15 K/mm3 (4.00-11.30)
[2024-09-21 05:13] LABS: Albumin, Blood 3.1 g/dL (3.4-5.0); Albumin/Globulin Ratio 0.9 (0.8-1.8); Bilirubin, Total 0.2 mg/dL (0.1-1.0); Bun/Creatinine Ratio 20.5 (12.0-20.0); Calcium, Blood 8.5 mg/dL (8.5-10.1); Creatinine, Blood 1.66 mg/dL (0.60-1.20); Globulin, Blood 3.3 g/dL (2.2-4.0); Potassium, Blood 4.2 mmol/L (3.5-5.5); Total Protein, Blood 6.4 g/dL (6.4-8.2)
--- NOTE | 2024-09-21 06:14 | NUR ---
SHIFT SUMMARY PT A&O X4, OBEYS COMMANDS, MOVING ALL EXTREMITIES WITH PURPOSE, HOLDING APPROPRIATE CONVERSATION, PT SBA WITH FWW TO BRP. SPO2 GREATER THAN 90% ON RA, NO SIGNS OF REPERTORY DISTRESS OBSERVED. CONTINOS TELE MONITORING, SINUS 60-70 S, PT DENIES CHEST P/P T/O THIS SHIFT, PULSES PRESENT T/O, BP STABLE WITH MAP GREATER THAN 65. BOWEL TONES PRESENT IN ALL 4Q, PT DENIES FEELINGS OF CONSTIPATION, PT TC FEELINGS OF NAUSEA. PT USING URINAL AT BEDSIDE, URINE YELLOW IN COLOR. PT REPORTING BACK PAIN, MEDICATED PER ORDERS. BED LOWEST POSITION, CALL LIGHT IN REACH, AWAITING TO GIVE REPORT TO ONCOMING RN
[2024-09-21 07:07] VITALS: BP 131/47
--- NOTE | 2024-09-21 07:46 | NUR ---
ASSUMPTION OF CARE: PATIENT IS ALERT AND ORIENTED X 4, ABLE TO MAKE NEEDS KNOWN, PLEASANT COOPERATIVE, ENDORSES LIGHTHEADEDNESS, WIDE BLOOD PRESSURE, MAP>65 DENIES ORTHOSTATIC DIZINESS. 1P ASSIST FWW FOR LINE MANAGEMENT. DENIES CHEST PAIN PRESSURE OR SOB. WHEEZES THROUGHOUT. SPO2 >94% ON RA. URINATING VIA URINAL NO RETENTION NOTED AT THIS TIME. NO ACUTE DISTRESS NOTED. PLAN OF CARE CONTINUES.
[2024-09-21] MEDS ORDERED: Tamsulosin HCl 0.4 MG Cap PO SCH (09:00)
[2024-09-21] MEDS ORDERED: Metoprolol Succinate 50 MG TABCR PO SCH (09:00)
[2024-09-21] MEDS ORDERED: AmLODIPine Besylate 5 MG Tab PO SCH (09:00)
[2024-09-21] MEDS ORDERED: Atorvastatin 40 MG Tab PO SCH (09:00)
[2024-09-21] MEDS ORDERED: buPROPion HCL 150 MG TAB.SR.12H PO SCH (09:00)
[2024-09-21] MEDS ORDERED: Cholecalciferol 1000 Unit Tablet (=25MCG) PO SCH (09:00)
[2024-09-21 10:57] VITALS: BP 115/59
[2024-09-21] MEDS ORDERED: TIOT18 INH (11:37)
[2024-09-21] MEDS ORDERED: DULERA 100 MCG/13 GM INH (11:37)
[2024-09-21] MEDS ORDERED: Cefpodoxime Pr100 MG PO (13:19)
--- NOTE | 2024-09-21 13:51 | NUR ---
DISCHARGE NOTE: PATIENT ESCORTED BY PCT IN , IV REMOVED BY PCT, DISCHARGE INSTRUCTION GIVEN BY ISABEL MAHER. PATIENT RECIEVED IV ROCEPHIN PER GUY GALEAS EARLY BEFORE DISCHARGE. [facility]. PATIENT AGREEABLE TO DISCHARGE WITH HIS PLANNED FOLLOW UPS, EDCUATED ON NEED FOR DAILY AND MULTIPLE BLOOD PRESSURE AND LOG FOR FOLLOW WITH PROVIDER, PATIENT VERBALIZED UNDERSTANDING. NO SIGNS OF DISTRESS. NO ACUTE CONCERNS FROM PATIENT OR THIS RN.
[2024-09-22] MEDS ORDERED: Ferrous Sulfate 325 MG Tab PO SCH (09:00)
== END 2024-09-21 14:00 | disposition home or self-care (01) | DRG 682 ==
LOC: ER 18:21 → PCU 22:00 → ERHOLD 22:00 → PCU 09-20 10:16
PROVIDERS: Emergency Medicine; Internal Medicine; Student in an Organized Health Care Education/Training Program; ADMIT Internal Medicine
DX: N17.9 Acute kidney failure, unspecified (principal); A41.9 Sepsis, unspecified organism; G93.41 Metabolic encephalopathy; E87.21 Acute metabolic acidosis; N18.30 Chronic kidney disease, stage 3 unspecified; F17.210 Nicotine dependence, cigarettes, uncomplicated; F12.90 Cannabis use, unspecified, uncomplicated; I12.9 Hypertensive chronic kidney disease with stage 1 through stage 4 chronic kidney disease, or unspecified chronic kidney disease; F32.A Depression, unspecified; M54.16 Radiculopathy, lumbar region; K76.0 Fatty (change of) liver, not elsewhere classified; J44.9 Chronic obstructive pulmonary disease, unspecified; I73.9 Peripheral vascular disease, unspecified; E86.1 Hypovolemia; N34.2 Other urethritis; G62.9 Polyneuropathy, unspecified; I95.9 Hypotension, unspecified; D63.1 Anemia in chronic kidney disease; N40.0 Benign prostatic hyperplasia without lower urinary tract symptoms; R73.03 Prediabetes; Z96.641 Presence of right artificial hip joint; Z71.51 Drug abuse counseling and surveillance of drug abuser; Z71.6 Tobacco abuse counseling; Z85.46 Personal history of malignant neoplasm of prostate; Z87.440 Personal history of urinary (tract) infections; Z95.820 Peripheral vascular angioplasty status with implants and grafts; Z79.51 Long term (current) use of inhaled steroids; Z79.01 Long term (current) use of anticoagulants
CPT/HCPCS: 36415; 51798; 71045; 76770; 80053; 81001; 83605; 83880; 85025; 87086; 93005; 93010; 94640; 94664; 94760; 94762; 96361; 96374; 96375; 99285-25; A9270; J0696; J1644; J7030

== ENCOUNTER 2024-11-23 18:55 | Inpatient (IN) | payer MEDICARE, OTHER ==
[~2024-11-23] VITALS: Ht 175.3 cm; Wt 116.9 kg
[~2024-11-23 18:55] MED LIST changes: +AMLODIPINE BESY10 MG PO; +Cefpodoxime Pr100 MG PO; +DULERA 100 MCG/13 GM INH; +FERSU300 PO; +THERA-D2000 UNIT PO; +TIOT18 INH
[2024-11-23] MEDS ORDERED: OXYB5 PO (19:13)
[2024-11-23 19:28] LABS: BASOPHILS ABSOLUTE AUTO 0.03 K/mm3 (0.00-0.23); BASOPHILS PERCENT AUTO 0 % (0-2); EOSINOPHILS ABSOLUTE AUTO 0.16 K/mm3 (0.00-0.68); EOSINOPHILS PERCENT AUTO 2 % (0-6); Hematocrit 30.7 % (37.0-53.0); Hemoglobin 9.4 g/dL (13.5-17.5); IMMATURE GRAN ABSOLUTE AUTO 0.03 K/mm3 (0.00-0.10); IMMATURE GRAN PERCENT AUTO 0 % (0-1); LYMPHOCYTES ABSOLUTE AUTO 0.96 K/mm3 (0.84-5.20); LYMPHOCYTES PERCENT AUTO 13 % (21-46); MONOCYTES ABSOLUTE AUTO 0.65 K/mm3 (0.16-1.47); MONOCYTES PERCENT AUTO 9 % (4-13); Mean Corpuscular HGB 29.1 pg (26.0-34.0); Mean Corpuscular HGB Conc 30.6 g/dL (31.5-36.5); Mean Corpuscular Volume 95 fL (80-100); Mean Platelet Volume 9.4 fL (9.1-12.4); NEUTROPHILS ABSOLUTE AUTO 5.56 K/mm3 (1.96-9.15); NEUTROPHILS PERCENT AUTO 75 % (41-73); Platelet Count 206 K/mm3 (150-400); RDW Coefficient Variation 16.6 % (11.7-14.2); RDW Standard Deviation 58.3 fL (35.1-46.3); Red Blood Cell Count 3.23 M/mm3 (4.30-5.90); White Blood Cell Count 7.39 K/mm3 (4.00-11.30)
[2024-11-23] MEDS ORDERED: MethylPREDNISolone Sod Succ 125 MG Vial IV ONE (19:30)
[2024-11-23] MEDS ORDERED: Albuterol 2.5 MG/3 ML VIAL INH SCH ×2 (19:35→22:15)
[2024-11-23] MEDS ORDERED: Ipratropium/Albuterol SulF 2.5-0.5MG/3 ML Amp INH ONE (19:35)
[2024-11-23 19:57] LABS: Albumin, Blood 2.8 g/dL (3.4-5.0); Bilirubin, Total 0.1 mg/dL (0.1-1.0); Bun/Creatinine Ratio 28.4 (12.0-20.0); Calcium, Blood 7.7 mg/dL (8.5-10.1); Creatinine, Blood 1.34 mg/dL (0.60-1.20); Globulin, Blood 2.9 g/dL (2.2-4.0); Potassium, Blood 4.5 mmol/L (3.5-5.5); Total Protein, Blood 5.7 g/dL (6.4-8.2)
[2024-11-24] VITALS (13 sets, daily range): BP systolic 109–205; BP diastolic 45–90
[2024-11-24] MEDS ORDERED: Ipratropium/Albuterol SulF 2.5-0.5MG/3 ML Amp INH SCH ×2 (00:05→00:35)
[2024-11-24] MEDS ORDERED: Lactated Ringer's 1,000 ML IV SCH (00:10)
[2024-11-24] MEDS ORDERED: Mometasone/Formoterol MDI 100/5 mcg 13 GM INH SCH (00:35)
[2024-11-24] MEDS ORDERED: TRAM50 PO (02:14)
[2024-11-24] MEDS ORDERED: Gabapentin 400 MG Cap PO SCH ×2 (02:25→09:00)
[2024-11-24] MEDS ORDERED: TraMADol HCl 50 MG Tab PO PRN (02:25)
[2024-11-24 06:07] LABS: BASOPHILS ABSOLUTE AUTO 0.01 K/mm3 (0.00-0.23); BASOPHILS PERCENT AUTO 0 % (0-2); EOSINOPHILS PERCENT AUTO 0 % (0-6); Hematocrit 36.2 % (37.0-53.0); IMMATURE GRAN ABSOLUTE AUTO 0.03 K/mm3 (0.00-0.10); IMMATURE GRAN PERCENT AUTO 0 % (0-1); LYMPHOCYTES ABSOLUTE AUTO 0.34 K/mm3 (0.84-5.20); LYMPHOCYTES PERCENT AUTO 5 % (21-46); MONOCYTES ABSOLUTE AUTO 0.06 K/mm3 (0.16-1.47); MONOCYTES PERCENT AUTO 1 % (4-13); Mean Corpuscular HGB 28.6 pg (26.0-34.0); Mean Corpuscular HGB Conc 30.4 g/dL (31.5-36.5); Mean Corpuscular Volume 94 fL (80-100); Mean Platelet Volume 9.6 fL (9.1-12.4); NEUTROPHILS ABSOLUTE AUTO 6.85 K/mm3 (1.96-9.15); NEUTROPHILS PERCENT AUTO 94 % (41-73); Platelet Count 215 K/mm3 (150-400); RDW Coefficient Variation 16.6 % (11.7-14.2); RDW Standard Deviation 57.6 fL (35.1-46.3); Red Blood Cell Count 3.85 M/mm3 (4.30-5.90); White Blood Cell Count 7.29 K/mm3 (4.00-11.30)
[2024-11-24 06:31] LABS: Albumin, Blood 3.1 g/dL (3.4-5.0); Albumin/Globulin Ratio 0.8 (0.8-1.8); Bilirubin, Total 0.1 mg/dL (0.1-1.0); Bun/Creatinine Ratio 30.1 (12.0-20.0); Calcium, Blood 8.3 mg/dL (8.5-10.1); Globulin, Blood 3.8 g/dL (2.2-4.0); Potassium, Blood 4.7 mmol/L (3.5-5.5); Total Protein, Blood 6.9 g/dL (6.4-8.2)
[2024-11-24] MEDS ORDERED: Rivaroxaban 2.5 MG TABLET PO SCH (09:00)
[2024-11-24] MEDS ORDERED: Enoxaparin 40 MG/0.4 ML SYR SC SCH (09:00)
[2024-11-24] MEDS ORDERED: buPROPion HCL 150 MG TAB.SR.12H PO SCH (09:00)
[2024-11-24] MEDS ORDERED: MethylPREDNISolone Sod Succ 125 MG Vial IV SCH (09:00)
[2024-11-24] MEDS ORDERED: Ferrous Gluconate 325 MG Tablet PO SCH (09:00)
[2024-11-24] MEDS ORDERED: Atorvastatin 40 MG Tab PO SCH (09:00)
[2024-11-24] MEDS ORDERED: Cholecalciferol 1000 Unit Tablet (=25MCG) PO SCH (09:00)
[2024-11-24] MEDS ORDERED: Metoprolol Succinate 50 MG TABCR PO SCH (09:00)
[2024-11-24] MEDS ORDERED: GuaiFENesin 600 MG TabCR PO SCH (09:00)
[2024-11-24] MEDS ORDERED: Docusate Sodium 100 MG Cap PO SCH (09:00)
[2024-11-24] MEDS ORDERED: Tamsulosin HCl 0.4 MG Cap PO SCH (09:00)
[2024-11-24] MEDS ORDERED: Nitroglycerin 0.4 MG SUBL ONE (20:08)
[2024-11-24] MEDS ORDERED: FentaNYL Citrate 50 MCG/ML 2 ML Injection IV ONE (20:10)
[2024-11-24] MEDS ORDERED: Nitroglycerin 0.4 MG SUBL SL PRN (20:10)
[2024-11-24] MEDS ORDERED: Aspirin 325 MG Tab PO ONE (20:25)
[2024-11-24 20:43] LABS: BASOPHILS ABSOLUTE AUTO 0.01 K/mm3 (0.00-0.23); BASOPHILS PERCENT AUTO 0 % (0-2); EOSINOPHILS PERCENT AUTO 0 % (0-6); Hematocrit 34.3 % (37.0-53.0); Hemoglobin 10.4 g/dL (13.5-17.5); IMMATURE GRAN ABSOLUTE AUTO 0.12 K/mm3 (0.00-0.10); IMMATURE GRAN PERCENT AUTO 1 % (0-1); LYMPHOCYTES ABSOLUTE AUTO 0.49 K/mm3 (0.84-5.20); LYMPHOCYTES PERCENT AUTO 3 % (21-46); MONOCYTES ABSOLUTE AUTO 0.54 K/mm3 (0.16-1.47); MONOCYTES PERCENT AUTO 4 % (4-13); Mean Corpuscular HGB 27.9 pg (26.0-34.0); Mean Corpuscular HGB Conc 30.3 g/dL (31.5-36.5); Mean Corpuscular Volume 92 fL (80-100); Mean Platelet Volume 9.1 fL (9.1-12.4); NEUTROPHILS ABSOLUTE AUTO 14.09 K/mm3 (1.96-9.15); NEUTROPHILS PERCENT AUTO 92 % (41-73); Platelet Count 252 K/mm3 (150-400); RDW Coefficient Variation 16.5 % (11.7-14.2); RDW Standard Deviation 56.2 fL (35.1-46.3); Red Blood Cell Count 3.73 M/mm3 (4.30-5.90); White Blood Cell Count 15.25 K/mm3 (4.00-11.30)
[2024-11-24 20:56] LABS: Bun/Creatinine Ratio 25.5 (12.0-20.0); Calcium, Blood 8.9 mg/dL (8.5-10.1); Creatinine, Blood 1.1 mg/dL (0.60-1.20); Potassium, Blood 4.7 mmol/L (3.5-5.5)
[2024-11-24] MEDS ORDERED: TraZODone HCl 100 MG Tab PO SCH (21:00)
[2024-11-24] MEDS ORDERED: oxyBUTYnin chloride 5 MG TAB PO SCH (21:00)
[2024-11-25] VITALS (7 sets, daily range): BP systolic 145–178; BP diastolic 68–91
[2024-11-25 02:39] LABS: BASOPHILS ABSOLUTE AUTO 0.01 K/mm3 (0.00-0.23); BASOPHILS PERCENT AUTO 0 % (0-2); EOSINOPHILS PERCENT AUTO 0 % (0-6); Hematocrit 30.8 % (37.0-53.0); Hemoglobin 9.6 g/dL (13.5-17.5); IMMATURE GRAN ABSOLUTE AUTO 0.11 K/mm3 (0.00-0.10); IMMATURE GRAN PERCENT AUTO 1 % (0-1); LYMPHOCYTES ABSOLUTE AUTO 0.35 K/mm3 (0.84-5.20); LYMPHOCYTES PERCENT AUTO 3 % (21-46); MONOCYTES ABSOLUTE AUTO 0.34 K/mm3 (0.16-1.47); MONOCYTES PERCENT AUTO 3 % (4-13); Mean Corpuscular HGB 28.6 pg (26.0-34.0); Mean Corpuscular HGB Conc 31.2 g/dL (31.5-36.5); Mean Corpuscular Volume 92 fL (80-100); Mean Platelet Volume 9.2 fL (9.1-12.4); NEUTROPHILS ABSOLUTE AUTO 12.17 K/mm3 (1.96-9.15); NEUTROPHILS PERCENT AUTO 94 % (41-73); Platelet Count 205 K/mm3 (150-400); RDW Coefficient Variation 16.7 % (11.7-14.2); Red Blood Cell Count 3.36 M/mm3 (4.30-5.90); White Blood Cell Count 12.98 K/mm3 (4.00-11.30)
[2024-11-25 02:55] LABS: International Normalized Ratio 0.96; Prothrombin Time Results 10.3 Sec (9.7-11.5)
[2024-11-25 03:02] LABS: Albumin, Blood 2.9 g/dL (3.4-5.0); Albumin/Globulin Ratio 0.9 (0.8-1.8); Bilirubin, Total 0.1 mg/dL (0.1-1.0); Bun/Creatinine Ratio 28.4 (12.0-20.0); Calcium, Blood 8.3 mg/dL (8.5-10.1); Creatinine, Blood 1.09 mg/dL (0.60-1.20); Globulin, Blood 3.3 g/dL (2.2-4.0); Potassium, Blood 4.6 mmol/L (3.5-5.5); Total Protein, Blood 6.2 g/dL (6.4-8.2)
[2024-11-25] MEDS ORDERED: Heparin Sodium,Porcine/0.5 NS 500 ML IV SCH (03:05)
[2024-11-25] MEDS ORDERED: Heparin Sodium 5000 Units/ML 1ML MDV IV ONE (03:05)
[2024-11-25] MEDS ORDERED: Aspirin 81 MG Chew PO SCH (09:00)
[2024-11-25] MEDS ORDERED: Nicotine 21 MG PATCH TOP SCH (09:00)
[2024-11-25] MEDS ORDERED: Dose Adjust by Pharmacy XX STA (11:05)
[2024-11-25] MEDS ORDERED: Verapamil HCL 2.5 MG/ML 2ML Injection ONE (12:28)
[2024-11-25] MEDS ORDERED: Heparin Sodium 1000 Units/ML 10ML MDV ONE ×3 (12:29→14:35)
[2024-11-25] MEDS ORDERED: NS 250 ML IV ONE (12:29)
[2024-11-25] MEDS ORDERED: NS 1,000 ML IV ONE ×2 (12:29→13:39)
[2024-11-25] MEDS ORDERED: Nitroglycerin 2 MG/20 ML BTL ONE (12:29)
[2024-11-25] MEDS ORDERED: FentaNYL Citrate 50 MCG/ML 2 ML Injection ONE (13:38)
[2024-11-25] MEDS ORDERED: Midazolam HCl 1MG / ML 2ML Vial ONE (13:38)
[2024-11-25] MEDS ORDERED: Tirofiban HCL Monohydrate 3.75 MG/15 ML Vial ONE (14:32)
[2024-11-25] MEDS ORDERED: Clopidogrel Bisulfate 300 MG TABLET ONE (14:57)
[2024-11-25] MEDS ORDERED: Losartan Potassium 50 MG Tab PO ONE (15:30)
[2024-11-25] MEDS ORDERED: Metoprolol Succinate 50 MG TABCR PO ONE (15:30)
[2024-11-26 00:40] VITALS: BP 140/64
[2024-11-26 04:34] VITALS: BP 154/82
[2024-11-26 07:41] VITALS: BP 150/102
[2024-11-26 07:45] LABS: BASOPHILS ABSOLUTE AUTO 0.01 K/mm3 (0.00-0.23); BASOPHILS PERCENT AUTO 0 % (0-2); EOSINOPHILS PERCENT AUTO 0 % (0-6); Hemoglobin 10.8 g/dL (13.5-17.5); IMMATURE GRAN ABSOLUTE AUTO 0.15 K/mm3 (0.00-0.10); IMMATURE GRAN PERCENT AUTO 1 % (0-1); LYMPHOCYTES PERCENT AUTO 5 % (21-46); MONOCYTES ABSOLUTE AUTO 0.77 K/mm3 (0.16-1.47); MONOCYTES PERCENT AUTO 6 % (4-13); Mean Corpuscular HGB 28.2 pg (26.0-34.0); Mean Corpuscular HGB Conc 30.9 g/dL (31.5-36.5); Mean Corpuscular Volume 91 fL (80-100); Mean Platelet Volume 9.5 fL (9.1-12.4); NEUTROPHILS ABSOLUTE AUTO 12.19 K/mm3 (1.96-9.15); NEUTROPHILS PERCENT AUTO 88 % (41-73); Platelet Count 279 K/mm3 (150-400); RDW Standard Deviation 57.3 fL (35.1-46.3); Red Blood Cell Count 3.83 M/mm3 (4.30-5.90); White Blood Cell Count 13.82 K/mm3 (4.00-11.30)
[2024-11-26 07:48] LABS: Bun/Creatinine Ratio 28.6 (12.0-20.0); Creatinine, Blood 1.19 mg/dL (0.60-1.20); Potassium, Blood 4.3 mmol/L (3.5-5.5)
[2024-11-26] MEDS ORDERED: Losartan Potassium 50 MG Tab PO SCH ×2 (09:00→21:00)
[2024-11-26] MEDS ORDERED: Clopidogrel Bisulfate 75 MG Tab PO SCH (09:00)
[2024-11-26 13:00] VITALS: BP 133/67
[2024-11-26] MEDS ORDERED: ASPI81CH PO (15:56)
[2024-11-26 16:07] VITALS: BP 155/82
[2024-11-26] MEDS ORDERED: AmLODIPine Besylate 5 MG Tab PO ONE (16:25)
[2024-11-26] MEDS ORDERED: LOSA50 PO (16:28)
[2024-11-26 23:48] VITALS: BP 153/81
[2024-11-27 04:35] VITALS: BP 141/84
[2024-11-27 06:28] LABS: BASOPHILS ABSOLUTE AUTO 0.01 K/mm3 (0.00-0.23); BASOPHILS PERCENT AUTO 0 % (0-2); EOSINOPHILS PERCENT AUTO 0 % (0-6); Hematocrit 34.2 % (37.0-53.0); IMMATURE GRAN ABSOLUTE AUTO 0.16 K/mm3 (0.00-0.10); IMMATURE GRAN PERCENT AUTO 1 % (0-1); LYMPHOCYTES ABSOLUTE AUTO 1.36 K/mm3 (0.84-5.20); LYMPHOCYTES PERCENT AUTO 11 % (21-46); MONOCYTES ABSOLUTE AUTO 1.07 K/mm3 (0.16-1.47); MONOCYTES PERCENT AUTO 9 % (4-13); Mean Corpuscular HGB 29.1 pg (26.0-34.0); Mean Corpuscular HGB Conc 32.2 g/dL (31.5-36.5); Mean Corpuscular Volume 91 fL (80-100); Mean Platelet Volume 9.4 fL (9.1-12.4); NEUTROPHILS ABSOLUTE AUTO 9.43 K/mm3 (1.96-9.15); NEUTROPHILS PERCENT AUTO 78 % (41-73); Platelet Count 244 K/mm3 (150-400); RDW Standard Deviation 56.3 fL (35.1-46.3); Red Blood Cell Count 3.78 M/mm3 (4.30-5.90); White Blood Cell Count 12.03 K/mm3 (4.00-11.30)
[2024-11-27 06:54] LABS: Bun/Creatinine Ratio 27.4 (12.0-20.0); Calcium, Blood 9.1 mg/dL (8.5-10.1); Creatinine, Blood 1.24 mg/dL (0.60-1.20); Potassium, Blood 4.7 mmol/L (3.5-5.5)
[2024-11-27 07:23] VITALS: BP 139/78
[2024-11-27] MEDS ORDERED: Empagliflozin 10 MG TAB PO SCH (09:00)
[2024-11-27] MEDS ORDERED: AmLODIPine Besylate 5 MG Tab PO SCH (09:00)
[2024-11-27] MEDS ORDERED: Atorvastatin 40 MG Tab PO SCH (09:00)
[2024-11-27] MEDS ORDERED: PredniSONE 20 MG Tab PO SCH (09:00)
[2024-11-27] MEDS ORDERED: Enoxaparin 40 MG/0.4 ML SYR SC SCH (09:00)
[2024-11-27 11:03] VITALS: BP 111/71
[2024-11-27] MEDS ORDERED: BUPR150ER PO (13:14)
[2024-11-27] MEDS ORDERED: CLOP75 PO (13:14)
[2024-11-27] MEDS ORDERED: JARDIANCE10 MG PO (13:15)
[2024-11-27] MEDS ORDERED: GUAI600T33 PO (13:15)
[2024-11-27] MEDS ORDERED: IPRAT-ALBUT 0.5-3 ML INH (13:16)
[2024-11-27] MEDS ORDERED: NICO21TP TOP (13:17)
[2024-11-27] MEDS ORDERED: PRED20 PO (13:19)
== END 2024-11-27 13:35 | DRG 321 ==
LOC: ER 18:55 → PCU 18:56 → ER 18:56 → MEDS 18:56 → PCU 11-24 14:55 → MEDS 11-24 14:55 → PCU 11-24 20:30 → MEDS 11-24 20:30 → PCU 11-24 20:30 → MEDS 11-26 20:17
PROVIDERS: Family Medicine; Internal Medicine; Student in an Organized Health Care Education/Training Program; ADMIT Student in an Organized Health Care Education/Training Program
PROC: 027034Z Dilation of Coronary Artery, One Artery with Drug-eluting Intraluminal Device, Percutaneous Approach (ICD-10-PCS; principal; 2024-11-25)
PROC: B2111ZZ Fluoroscopy of Multiple Coronary Arteries using Low Osmolar Contrast (ICD-10-PCS; 2024-11-25)
DX: I25.110 Atherosclerotic heart disease of native coronary artery with unstable angina pectoris (principal); J96.01 Acute respiratory failure with hypoxia; J44.1 Chronic obstructive pulmonary disease with (acute) exacerbation; I13.0 Hypertensive heart and chronic kidney disease with heart failure and stage 1 through stage 4 chronic kidney disease, or unspecified chronic kidney disease; I50.32 Chronic diastolic (congestive) heart failure; G62.9 Polyneuropathy, unspecified; Z96.641 Presence of right artificial hip joint; F17.210 Nicotine dependence, cigarettes, uncomplicated; F12.90 Cannabis use, unspecified, uncomplicated; E86.0 Dehydration; D63.1 Anemia in chronic kidney disease; E66.9 Obesity, unspecified; R73.03 Prediabetes; M48.00 Spinal stenosis, site unspecified; E78.5 Hyperlipidemia, unspecified; N18.30 Chronic kidney disease, stage 3 unspecified; I73.9 Peripheral vascular disease, unspecified; M54.16 Radiculopathy, lumbar region; F32.A Depression, unspecified; Z87.19 Personal history of other diseases of the digestive system; Z79.899 Other long term (current) drug therapy; Z91.030 Bee allergy status; Z79.51 Long term (current) use of inhaled steroids; Z79.01 Long term (current) use of anticoagulants; Z85.46 Personal history of malignant neoplasm of prostate; Z98.890 Other specified postprocedural states; Z68.35 Body mass index [BMI] 35.0-35.9, adult
CPT/HCPCS: 36415; 71045; 71260; 75635; 76937; 80048; 80053; 83735; 83880; 84484; 85025; 85347; 85379; 85610; 85730; 93005; 93010; 93306; 93454; 94640; 94644; 94645; 94664; 94760; 94762; 96374; 97110; 97116; 97162; 97165; 97530; 99152; 99153; 99285-25; A9270; C1725; C1769; C1874; C1887; C1894; C9600; G0378; J1644; J1650; J2250; J2919; J3010; J3246; J7030; J7050; J7120; J7512; Q9967

== ENCOUNTER 2024-12-10 14:34 | Inpatient (IN) | payer MEDICARE, OTHER ==
[~2024-12-10] VITALS: Ht 170.2 cm; Wt 71.9 kg
[~2024-12-10 14:34] MED LIST changes: +CLOP75 PO; +GUAI600T33 PO; +JARDIANCE10 MG PO; +NICO21TP TOP
[2024-12-10] MEDS ORDERED: NS 1,000 ML IV ONE ×2 (14:48→17:37)
[2024-12-10 15:03] LABS: Calcium, Ionized (POC) 1.18 mmol/L (1.10-1.46); Chloride (POC) 111 mmol/L (98-108); Glucose (ISTAT POC) 103 mg/dL (70-99); Hemoglobin (POC) 9.5 g/dL (13.5-17.5); Potassium (POC) 4.5 mmol/L (3.5-5.5); Sodium (POC) 140 mmol/L (135-148); Total CO2 (POC) 22 mmol/L (21-32)
[2024-12-10 15:14] LABS: Base Excess Venous -3.4 mmol/L; Bicarbonate Venous 21.2 mmol/L (24.0-30.0); PCO2 Venous 57.5 mmHg (38-42); pH Blood Venous 7.23 (7.34-7.37)
[2024-12-10 15:22] LABS: BASOPHILS ABSOLUTE AUTO 0.02 K/mm3 (0.00-0.23); BASOPHILS PERCENT AUTO 0 % (0-2); EOSINOPHILS ABSOLUTE AUTO 0.08 K/mm3 (0.00-0.68); EOSINOPHILS PERCENT AUTO 1 % (0-6); Hematocrit 30.1 % (37.0-53.0); Hemoglobin 8.8 g/dL (13.5-17.5); IMMATURE GRAN ABSOLUTE AUTO 0.07 K/mm3 (0.00-0.10); IMMATURE GRAN PERCENT AUTO 1 % (0-1); LYMPHOCYTES ABSOLUTE AUTO 0.75 K/mm3 (0.84-5.20); LYMPHOCYTES PERCENT AUTO 7 % (21-46); MONOCYTES ABSOLUTE AUTO 0.98 K/mm3 (0.16-1.47); MONOCYTES PERCENT AUTO 10 % (4-13); Mean Corpuscular HGB 28.7 pg (26.0-34.0); Mean Corpuscular HGB Conc 29.2 g/dL (31.5-36.5); Mean Corpuscular Volume 98 fL (80-100); Mean Platelet Volume 9.2 fL (9.1-12.4); NEUTROPHILS ABSOLUTE AUTO 8.28 K/mm3 (1.96-9.15); NEUTROPHILS PERCENT AUTO 81 % (41-73); Platelet Count 188 K/mm3 (150-400); RDW Coefficient Variation 18.6 % (11.7-14.2); RDW Standard Deviation 65.7 fL (35.1-46.3); Red Blood Cell Count 3.07 M/mm3 (4.30-5.90); White Blood Cell Count 10.18 K/mm3 (4.00-11.30)
[2024-12-10 15:37] LABS: International Normalized Ratio 0.95; Prothrombin Time Results 10.2 Sec (9.7-11.5)
[2024-12-10 16:21] LABS: Albumin, Blood 2.8 g/dL (3.4-5.0); Bilirubin, Total 0.2 mg/dL (0.1-1.0); Bun/Creatinine Ratio 20.6 (12.0-20.0); Calcium, Blood 8.3 mg/dL (8.5-10.1); Creatinine, Blood 1.75 mg/dL (0.60-1.20); Globulin, Blood 2.8 g/dL (2.2-4.0); Potassium, Blood 4.5 mmol/L (3.5-5.5); Total Protein, Blood 5.6 g/dL (6.4-8.2)
[2024-12-10] MEDS ORDERED: Sodium Chloride 0.45% 1,000 ML IV SCH (17:35)
[2024-12-10] MEDS ORDERED: Zolpidem Tartrate 5 MG Tab PO PRN (17:40)
[2024-12-10] MEDS ORDERED: Ondansetron 4 MG TAB PO PRN (17:40)
[2024-12-10] MEDS ORDERED: NS 1,000 ML IV SCH (18:00)
[2024-12-10] MEDS ORDERED: Pantoprazole Sodium 40 MG Injection IV SCH (20:00)
[2024-12-10 20:30] VITALS: BP 135/63
[2024-12-10 21:00] VITALS: BP 134/75
[2024-12-10] MEDS ORDERED: TraZODone HCl 100 MG Tab PO PRN (21:15)
[2024-12-10] MEDS ORDERED: HYDROcodone 10-APAP 325 TAB PO PRN (21:15)
[2024-12-10] MEDS ORDERED: Acetaminophen 500 MG Tab PO PRN (21:15)
[2024-12-10] MEDS ORDERED: HYDROmorphone HCl/Pf 1MG SYR IV PRN (21:15)
[2024-12-10 22:00] VITALS: BP 141/64
[2024-12-10] MEDS ORDERED: FURO20 PO (22:06)
[2024-12-10] MEDS ORDERED: TRELEGY ELLIPT1 EACH INH (22:16)
[2024-12-10] MEDS ORDERED: Albuterol 2.5 MG/3 ML VIAL INH PRN (22:40)
[2024-12-10] MEDS ORDERED: Albuterol 2.5 MG/3 ML VIAL ONE (22:43)
[2024-12-10] MEDS ORDERED: Ipratropium Bromide INH 0.02% 0.5 mg/2.5ML Vial INH SCH (22:55)
[2024-12-10 23:00] VITALS: BP 150/66
[2024-12-11 03:14] VITALS: BP 155/61
[2024-12-11 04:31] LABS: BASOPHILS ABSOLUTE AUTO 0.02 K/mm3 (0.00-0.23); BASOPHILS PERCENT AUTO 0 % (0-2); EOSINOPHILS ABSOLUTE AUTO 0.07 K/mm3 (0.00-0.68); EOSINOPHILS PERCENT AUTO 1 % (0-6); Hematocrit 34.8 % (37.0-53.0); Hemoglobin 10.7 g/dL (13.5-17.5); IMMATURE GRAN ABSOLUTE AUTO 0.05 K/mm3 (0.00-0.10); IMMATURE GRAN PERCENT AUTO 1 % (0-1); LYMPHOCYTES ABSOLUTE AUTO 0.64 K/mm3 (0.84-5.20); LYMPHOCYTES PERCENT AUTO 8 % (21-46); MONOCYTES ABSOLUTE AUTO 0.73 K/mm3 (0.16-1.47); MONOCYTES PERCENT AUTO 9 % (4-13); Mean Corpuscular HGB 28.9 pg (26.0-34.0); Mean Corpuscular HGB Conc 30.7 g/dL (31.5-36.5); Mean Corpuscular Volume 94 fL (80-100); Mean Platelet Volume 8.9 fL (9.1-12.4); NEUTROPHILS ABSOLUTE AUTO 6.56 K/mm3 (1.96-9.15); NEUTROPHILS PERCENT AUTO 81 % (41-73); Platelet Count 150 K/mm3 (150-400); RDW Standard Deviation 61.1 fL (35.1-46.3); White Blood Cell Count 8.07 K/mm3 (4.00-11.30)
[2024-12-11 04:57] LABS: Albumin, Blood 2.9 g/dL (3.4-5.0); Albumin/Globulin Ratio 0.9 (0.8-1.8); Bilirubin, Total 0.3 mg/dL (0.1-1.0); Calcium, Blood 8.3 mg/dL (8.5-10.1); Creatinine, Blood 1.05 mg/dL (0.60-1.20); Globulin, Blood 3.1 g/dL (2.2-4.0); Potassium, Blood 3.9 mmol/L (3.5-5.5)
--- NOTE | 2024-12-11 05:21 | NUR ---
SHIFT SUMMARY PER REPORT, PT RECIEVED 2L NS AND 1UNIT OF PRBC'S. PT HAS SINCE RECIEVED ANOTHER LITER OF NS ON THE FLOOR. SYSTOLIC BP'S ARE AT PT'S BASELINE OF 150. GOOD URINE OUTPUT. ALERT AND ORIENTED. WHEEZES HEARD THROUHOUT LUNGS, BREATHING TREATMENTS ORDERED. BRUISING SCATTERED. PT EVEN RECIEVED A BRUISE FROM THE IV TUBING. RASH NOTED TO LEFT FOOT. STOOLS ARE LOOSE WITH RED STREAKS.
[2024-12-11 06:40] LABS: Base Excess Venous -0.7 mmol/L; Bicarbonate Venous 23.9 mmol/L (24.0-30.0)
[2024-12-11 08:12] VITALS: BP 128/60
[2024-12-11] MEDS ORDERED: Mometasone/Formoterol MDI 100/5 mcg 13 GM INH SCH (09:00)
[2024-12-11] MEDS ORDERED: Gabapentin 300 MG Cap PO SCH (09:00)
[2024-12-11] MEDS ORDERED: Empagliflozin 10 MG TAB PO SCH (09:00)
[2024-12-11] MEDS ORDERED: Peg/Electrolytes 4,000 ML BTL PO ONE (10:30)
[2024-12-11] MEDS ORDERED: Ipratropium/Albuterol SulF 2.5-0.5MG/3 ML Amp INH SCH (10:35)
[2024-12-11 11:38] VITALS: BP 148/75
[2024-12-11 13:37] LABS: Percent Saturation 6.7 % (20.0-50.0)
--- NOTE | 2024-12-11 14:49 | NUR ---
SHIFT SUMMARY PATIENT AOX4 ABLE TO MAKE NEEDS KNOWN. HE DENIES ANY PAIN OR SOB. HE IS AMBULATORY TO THE CHAIR FOR MEALS AND TO THE RESTROOM. THE GI/SX GROUP CAME BY THAT AND RECOMMENDED COLONOSCOPY BUT THE PATIENT IS REFUSING THAT PROCEDURE. THE DOCTOR EXPLAINED WHY IS WAS PLANNED AND THE PATIENT UNDERSTANDS AND CONTINUES TO REFUSE. THE HOSPITALIST WANT TO RECHECK THE BLOOD COUNT.
[2024-12-11] MEDS ORDERED: Sod Ferric Gluc Complx/Sucrose 125 MG in NS 100 ML IV SCH (15:07)
[2024-12-11 15:30] VITALS: BP 119/54
[2024-12-11 15:40] LABS: Hematocrit 36.5 % (37.0-53.0); Hemoglobin 11.1 g/dL (13.5-17.5)
[2024-12-11] MEDS ORDERED: Ipratropium/Albuterol SulF 2.5-0.5MG/3 ML Amp INH PRN (16:00)
--- NOTE | 2024-12-11 18:23 | NUR ---
SHIFT SUMMARY PATIENT AOX4 ABLE TO MAKE NEEDS KNOWN HE STATES HE WILL STAY THE NIGHT TO HAVE HIS H AND H CHECKED EVEN THOUGH HE DOES NOT WANT THE COLONOSCOPY DONE. THE G/SX DR AND THE HOSPITALIST ARE AWARE.
[2024-12-11 20:23] VITALS: BP 157/57
[2024-12-11] MEDS ORDERED: Losartan Potassium 50 MG Tab PO SCH (21:00)
[2024-12-11 23:44] VITALS: BP 149/70
[2024-12-12] VITALS (7 sets, daily range): BP systolic 110–155; BP diastolic 65–86
[2024-12-12 04:00] LABS: BASOPHILS ABSOLUTE AUTO 0.02 K/mm3 (0.00-0.23); BASOPHILS PERCENT AUTO 0 % (0-2); EOSINOPHILS ABSOLUTE AUTO 0.06 K/mm3 (0.00-0.68); EOSINOPHILS PERCENT AUTO 1 % (0-6); Hematocrit 34.6 % (37.0-53.0); Hemoglobin 10.8 g/dL (13.5-17.5); IMMATURE GRAN ABSOLUTE AUTO 0.04 K/mm3 (0.00-0.10); IMMATURE GRAN PERCENT AUTO 1 % (0-1); LYMPHOCYTES ABSOLUTE AUTO 0.67 K/mm3 (0.84-5.20); LYMPHOCYTES PERCENT AUTO 10 % (21-46); MONOCYTES ABSOLUTE AUTO 0.68 K/mm3 (0.16-1.47); MONOCYTES PERCENT AUTO 10 % (4-13); Mean Corpuscular HGB Conc 31.2 g/dL (31.5-36.5); Mean Corpuscular Volume 93 fL (80-100); NEUTROPHILS ABSOLUTE AUTO 5.23 K/mm3 (1.96-9.15); NEUTROPHILS PERCENT AUTO 78 % (41-73); Platelet Count 178 K/mm3 (150-400); RDW Coefficient Variation 17.9 % (11.7-14.2); RDW Standard Deviation 60.5 fL (35.1-46.3); Red Blood Cell Count 3.72 M/mm3 (4.30-5.90)
--- NOTE | 2024-12-12 06:06 | NUR ---
SHIFT SUMMARY PT IS A&O X4, ABLE TO MAKE NEEDS KNOWN, MOVING ALL EXTREMITIES WITH PURPOSE, REPOSITIONING SELF IN BED, USING CALL LIGHT APPROPRIATELY. CONTINUOUS SPO2, SPO2 GREATER THAN 90% ON RA, WHILE SLEEPING PT DESATURATED TO 70 S% / WOKE UP PT AND PT REFUSED NASAL CANULA, NO SIGNS OF RESPIRATORY DISTRESS NOTED THIS SHIFT. CONTINUOUS TELE MONITORING, AFIB 70-90 S , PT DENIES CHEST P/P, PULSES PRESENT T/O, CAP REFILL WNL. BOWEL TONES PRESENT IN ALL 4Q. BED LOWEST POSITION, CALL LIGHT IN REACH, AWAITING TO GIVE REPORT TO ONCOMING RN.
[2024-12-12] MEDS ORDERED: buPROPion HCL 150 MG TAB.SR.12H PO SCH (09:00)
[2024-12-12] MEDS ORDERED: Furosemide 20 MG Tab PO SCH (09:00)
[2024-12-12] MEDS ORDERED: Nicotine 21 MG PATCH TOP SCH (09:00)
[2024-12-12] MEDS ORDERED: Tamsulosin HCl 0.4 MG Cap PO SCH (09:00)
[2024-12-12] MEDS ORDERED: AmLODIPine Besylate 5 MG Tab PO SCH (09:00)
[2024-12-12] MEDS ORDERED: Peg/Electrolytes 4,000 ML BTL PO ONE (09:00)
[2024-12-12] MEDS ORDERED: Cholecalciferol 1000 Unit Tablet (=25MCG) PO SCH (09:00)
--- NOTE | 2024-12-12 09:03 | NUR ---
THE PT HAD AN INC LOOSE TOM RED BOWEL MOVEMENT. THIS RN ASKED THE PT ABOUT WHY HE WAS DECLINING A COLONOSCOPY, AND HE PT STATED HE WAS NOT READY FOR IT AND THAT HIS NEPHEW DOES COLONOSCOPYS. THIS RN ASKED THE PT WHAT IS HIS PLAN SINCE HE CONTINUES TO BLEED. THE PT STATED HE WAS GOING TO CALL HIS NEPHEW AND GET HIS OPINION. WHILE THIS RN WAS IN THE ROOM, THE PT CALLED AND DECIDED TO HAVE A COLONOSCOPY. THIS RN CALLED DR. MURDOCK, WHO IS ON THE PT'S CASE, AND WANTS TO DO AN EGD AND COLONOSCOPY. BOWEL PREP WAS ORDERED FROM THE PROVIDER.
[2024-12-12] MEDS ORDERED: Clopidogrel Bisulfate 75 MG Tab PO SCH (12:00)
[2024-12-12] MEDS ORDERED: Aspirin 81 MG Chew PO SCH (12:00)
[2024-12-12] MEDS ORDERED: Carvedilol 3.125 MG Tab PO SCH (17:00)
--- NOTE | 2024-12-12 18:33 | NUR ---
END OF SHIFT SUMMARY REPORT A&0X4, GCS15, MOTOR FUNCTION INTACT AND RESPONDS APPROPRIATLY TO VERBAL CONVERSATION. 1P SBA /FWW. BLOOD PRESSURE IS STABLE. HEART RATE IS SR 60'S TO 90'S. EDEMA OF BLE. O2 MAINTAINED AT > 90% ON RA. AT SHIFT CHANGE IT WAS REPORTED PT O2 DESATED DURING SLEEP. THE NURSE ATTEMPTED TO PLACE ON SUPPLEMENTAL O2 TO WHICH HE DECLINED. PT IS ORDERED CLEAR LIQUID DIET WITH NO REDS AND NPO AT MIDNIGHT. PT IS COMPLETED [facility] BOWEL PREP FOR UPPER ENDOSCOPY AND COLONOSCOPY ON 12/13/[address] DUKE. WOUND OF LEFT FOOT, SCRATCH ON HEAD. PT IS A CURRENT DAILY SMOKER X 61YEARS. NICOTINE PATCH PLACED ON LEFT POSTERIOR SHOULDER TODAY 12/12/2024. PT IS SEATED IN RECLINER WITH CALL LIGHT IN REACH. SEEN NOTES FOR UPDATES.
[2024-12-13] VITALS (16 sets, daily range): BP systolic 91–165; BP diastolic 42–82
[2024-12-13 04:04] LABS: BASOPHILS ABSOLUTE AUTO 0.02 K/mm3 (0.00-0.23); BASOPHILS PERCENT AUTO 0 % (0-2); EOSINOPHILS ABSOLUTE AUTO 0.08 K/mm3 (0.00-0.68); EOSINOPHILS PERCENT AUTO 1 % (0-6); Hematocrit 33.5 % (37.0-53.0); Hemoglobin 10.4 g/dL (13.5-17.5); IMMATURE GRAN ABSOLUTE AUTO 0.03 K/mm3 (0.00-0.10); IMMATURE GRAN PERCENT AUTO 1 % (0-1); LYMPHOCYTES ABSOLUTE AUTO 0.67 K/mm3 (0.84-5.20); LYMPHOCYTES PERCENT AUTO 11 % (21-46); MONOCYTES ABSOLUTE AUTO 0.56 K/mm3 (0.16-1.47); MONOCYTES PERCENT AUTO 9 % (4-13); Mean Corpuscular HGB 28.9 pg (26.0-34.0); Mean Corpuscular Volume 93 fL (80-100); NEUTROPHILS ABSOLUTE AUTO 5.02 K/mm3 (1.96-9.15); NEUTROPHILS PERCENT AUTO 79 % (41-73); Platelet Count 158 K/mm3 (150-400); RDW Coefficient Variation 17.4 % (11.7-14.2); RDW Standard Deviation 59.6 fL (35.1-46.3); White Blood Cell Count 6.38 K/mm3 (4.00-11.30)
[2024-12-13 04:34] LABS: Albumin, Blood 2.9 g/dL (3.4-5.0); Albumin/Globulin Ratio 0.9 (0.8-1.8); Bilirubin, Total 0.5 mg/dL (0.1-1.0); Bun/Creatinine Ratio 10.8 (12.0-20.0); Calcium, Blood 8.2 mg/dL (8.5-10.1); Creatinine, Blood 1.11 mg/dL (0.60-1.20); Globulin, Blood 3.4 g/dL (2.2-4.0); Magnesium, Blood 1.8 mg/dL (1.6-2.4); Phosphorus, Blood 2.3 mg/dL (2.5-4.9); Potassium, Blood 3.5 mmol/L (3.5-5.5); Total Protein, Blood 6.3 g/dL (6.4-8.2)
[2024-12-13] MEDS ORDERED: Lactated Ringer's 1,000 ML IV SCH (12:30)
[2024-12-13] MEDS ORDERED: Etomidate 2MG / ML 10ML Vial ONE (12:38)
[2024-12-13] MEDS ORDERED: propofoL 40 ML IV ONE (12:40)
--- NOTE | 2024-12-13 12:49 | NUR ---
12/13/24 1249 Grabiel Guthrie History, Chart, Medications and Allergies reviewed before start of procedure. MONITOR INTACT WITH CONTINUOUS PULSE OXIMETRY, CONTINUOUS END TITAL CO2, 3-LEAD EKG AND INTERMITTENT BLOOD PRESSURE. 3-LEAD EKG REVIEWED WITH PHYSICIAN PRIOR TO START OF PROCEDURE. O2 VIA POM INTACT THROUGHOUT SEDATION/PROCEDURE. Bite Block Placed.
--- NOTE | 2024-12-13 12:53 | NUR ---
PT TO UNIT VIA [facility]. ABLE TO TRANSFER HIMSELF INDEPENDENTLY. ALL BELONGINGS LEFT IN PT'S ROOM.
--- NOTE | 2024-12-13 13:36 | NUR ---
PT BACK TO ROOM POST EGD AND COLONOSCOPY. HE TRANSFERED SBA FROM [facility] TO BED. DENIES ANY SOB, SOAR THROAT, PAIN, OR CHEST PAIN. PT IN BED. VITAL SIGNS STABLE. SP02 >93% ON RA. ON TELE HE IS SR 90'S, BP STABLE. SEQUENCE VITAL SIGNS RUNNING PER PROTOCOL. BEDSIDE SWALLOW TEST AND PT TOLERATING PO. PT'S SISTER DIONY WAS CALLED AND NOTIFIED THAT PT HAD A SUCCESSFUL PROCEDURE AND IS BACK IN THE ROOM. PT IS CURRENTLY IN BED EATING LUNCH. BED IN LOW, CALL LIGHT IN REACH. SEE NOTES FOR UPDATES.
--- NOTE | 2024-12-13 17:12 | NUR ---
END OF SHIFT SUMMARY REPORT PT IS A&OX4, GCS15, 1P SBA, BP IS STABLE. SR TO ST 80'S TO 100'S WITH PVC AND PAC. EDEMA OF BLE. O2 MAINTAINED AT >93% RA. PT IS REGULAR DIET, TAKES PILLS WHOLE. PT IS CONTINENT OF BOWEL AND BLADDER. PATIENT HAD UPPER ENDOSCOPY AND COLONOSCOPY COMPLETED TODAY AWAITING PROVIIDER REPORT. POST PROCEDURE PATIENT HAD SOFT BP OF 1700 BLOOD PRESSURE 120/67 (82). CALL LIGHT IN REACH, BED IS IN LOWEST POSITION. SEE NOTES FOR ANY UPDATES.
[2024-12-14] VITALS (7 sets, daily range): BP systolic 117–151; BP diastolic 63–84
[2024-12-14 05:00] LABS: BASOPHILS ABSOLUTE AUTO 0.02 K/mm3 (0.00-0.23); BASOPHILS PERCENT AUTO 0 % (0-2); EOSINOPHILS ABSOLUTE AUTO 0.06 K/mm3 (0.00-0.68); EOSINOPHILS PERCENT AUTO 1 % (0-6); Hematocrit 33.7 % (37.0-53.0); Hemoglobin 10.5 g/dL (13.5-17.5); IMMATURE GRAN ABSOLUTE AUTO 0.03 K/mm3 (0.00-0.10); IMMATURE GRAN PERCENT AUTO 0 % (0-1); LYMPHOCYTES ABSOLUTE AUTO 0.53 K/mm3 (0.84-5.20); LYMPHOCYTES PERCENT AUTO 7 % (21-46); MONOCYTES ABSOLUTE AUTO 0.67 K/mm3 (0.16-1.47); MONOCYTES PERCENT AUTO 9 % (4-13); Mean Corpuscular HGB Conc 31.2 g/dL (31.5-36.5); Mean Corpuscular Volume 93 fL (80-100); NEUTROPHILS ABSOLUTE AUTO 5.99 K/mm3 (1.96-9.15); NEUTROPHILS PERCENT AUTO 82 % (41-73); Platelet Count 153 K/mm3 (150-400); RDW Coefficient Variation 17.5 % (11.7-14.2); Red Blood Cell Count 3.62 M/mm3 (4.30-5.90)
--- NOTE | 2024-12-14 05:33 | NUR ---
SHIFT SUMMARY PT A&OX4. FOLLOWS COMMANDS AND ABLE TO MAKE NEEDS KNOWN. BP STABLE. ON TELE, SR 80-90S. SPO2>90% ON RA WHEN AWAKE, DESATS WHEN SLEEPING. DECLINED O2 STATING "I DON'T USE IT AT HOME, SO I'M NOT GOING TO USE IT HERE." UPPER AND LOWER GI SCOPES COMPLETED DURING DAY SHIFT. PT DENIED ABD PAIN DURING THE NIGHT. SBA TO CHAIR. NO SIGNIFICANT EVENTS OCCURRED OVERNIGHT. WILL REPORT TO ONCOMING NURSE.
[2024-12-14 05:42] LABS: Albumin, Blood 2.9 g/dL (3.4-5.0); Albumin/Globulin Ratio 0.8 (0.8-1.8); Bilirubin, Total 0.4 mg/dL (0.1-1.0); Bun/Creatinine Ratio 13.7 (12.0-20.0); Calcium, Blood 8.5 mg/dL (8.5-10.1); Creatinine, Blood 1.39 mg/dL (0.60-1.20); Globulin, Blood 3.5 g/dL (2.2-4.0); Potassium, Blood 3.7 mmol/L (3.5-5.5); Total Protein, Blood 6.4 g/dL (6.4-8.2)
[2024-12-14] MEDS ORDERED: Spironolactone 25 MG Tab PO SCH (09:00)
[2024-12-14] MEDS ORDERED: Spironolactone 50 MG Tab PO SCH (09:00)
[2024-12-14] MEDS ORDERED: CefTRIAXone Sodium 1,000 MG in NS 100 ML IV SCH (10:40)
[2024-12-14] MEDS ORDERED: Furosemide 10 MG/ML 4ML Vial IV SCH (10:40)
[2024-12-14] MEDS ORDERED: Carvedilol 3.125 MG Tab PO ONE (16:00)
--- NOTE | 2024-12-14 16:26 | NUR ---
END OF SHIFT REPORT A&OX4, GCS15, SBA, VERBAL RESPONSES ARE APPROPRIATE FOR CONVERSATION. O2 MAINTAINED AT > 93% ON RA. DENIES SOB. SR-ST 90'S TO 113. DENIES CHEST PAIN OR PRESSURE. INCREASED EDEMA AND OF BLE AND NEW REDNESS OF THE TOPS OF BILATERAL FEET (LT WORSE THAN RT) (LT 3+ & RT 2+). PROVIDER DR. ENAMORADO MADE AWARE DURING HIS ROUND; ORAL LASIX DC'D AND LASIX 40MG IV QD ORDERED, AND COMPRESSION STOCKINGS ORDERED AND PLACED. PROVIDER WAS ALSO MADE AWARE OF REDDENED, TENDER, FIRM AREA OF BILATERAL ANTICUBITAL (RT WORSE THAN LT) CEFTRIAXONE 1G ORDERED QD. PT IS CONTINENT OF BOWEL AND BLADDER. PT IS SITTING IN RECLINER WHEELS ARE LOCKED, BLE ELEVATED AND CALL LIGHT IN REACH. SEE NOTES FOR UPDATES.
[2024-12-14] MEDS ORDERED: Carvedilol 6.25 MG Tab PO SCH (17:00)
[2024-12-15] VITALS (42 sets, daily range): BP systolic 72–185; BP diastolic 34–88
[2024-12-15] MEDS ORDERED: FentaNYL Citrate 50 MCG/ML 2 ML Injection IV PRN (01:40)
[2024-12-15] MEDS ORDERED: HYDROmorphone HCl/Pf 1MG SYR IV ONE (02:10)
[2024-12-15 02:17] LABS: BASOPHILS ABSOLUTE AUTO 0.01 K/mm3 (0.00-0.23); BASOPHILS PERCENT AUTO 0 % (0-2); EOSINOPHILS ABSOLUTE AUTO 0.03 K/mm3 (0.00-0.68); EOSINOPHILS PERCENT AUTO 1 % (0-6); Hematocrit 36.8 % (37.0-53.0); Hemoglobin 11.6 g/dL (13.5-17.5); IMMATURE GRAN ABSOLUTE AUTO 0.05 K/mm3 (0.00-0.10); IMMATURE GRAN PERCENT AUTO 1 % (0-1); LYMPHOCYTES ABSOLUTE AUTO 0.45 K/mm3 (0.84-5.20); LYMPHOCYTES PERCENT AUTO 7 % (21-46); MONOCYTES ABSOLUTE AUTO 0.53 K/mm3 (0.16-1.47); MONOCYTES PERCENT AUTO 8 % (4-13); Mean Corpuscular HGB Conc 31.5 g/dL (31.5-36.5); Mean Corpuscular Volume 92 fL (80-100); NEUTROPHILS ABSOLUTE AUTO 5.38 K/mm3 (1.96-9.15); NEUTROPHILS PERCENT AUTO 83 % (41-73); RDW Coefficient Variation 17.7 % (11.7-14.2); RDW Standard Deviation 59.4 fL (35.1-46.3); RETICULOCYTE ABSOLUTE 0.0764 M/mm3 (0.0200-0.1100); RETICULOCYTE COUNT PERCENT 1.91 % (0.50-2.50); White Blood Cell Count 6.45 K/mm3 (4.00-11.30)
[2024-12-15 02:21] LABS: Mean Platelet Volume 8.9 fL (9.1-12.4); Platelet Count 169 K/mm3 (150-400)
[2024-12-15 02:39] LABS: Percent Saturation 12.1 % (20.0-50.0)
[2024-12-15 02:40] LABS: Bun/Creatinine Ratio 12.6 (12.0-20.0); Calcium, Blood 8.3 mg/dL (8.5-10.1); Creatinine, Blood 2.3 mg/dL (0.60-1.20); Potassium, Blood 4.5 mmol/L (3.5-5.5)
[2024-12-15] MEDS ORDERED: Pantoprazole Sodium 40 MG Tab PO SCH (06:00)
--- NOTE | 2024-12-15 06:47 | NUR ---
NOC SHIFT SUMMARY PT ORIENTED X4, ABLE TO MAKE NEEDS KNOWN. ST ON TELEMETRY 110S - 130S. TEMP OF 102 AT START OF SHIFT, MD NOTIFIED AND TYLENOL GIVEN WITH DECREASE IN TEMP AND HR. AT APPROXIMATELY 0125 PT CALLED OUT WITH ACUTE RLE PAIN LIKE A "VISE". HAD REQUESTED SCDS TO BE TAKEN OFF PRIOR TO THIS DUE TO DISCOMFORT. NEUROVASCULAR STATUS INTACT, PULSES DOPPLERED. NOTIFIED DR. SARMIENTO AND PT ALSO REPORTS ACUTE CHEST PAIN "18/10" VITALS WITH BP LOW, HR HIGH IN 120S. ANXIOUS. EKG OBTAINED, WOOD[employer] INSTRUMENTS INSPECTOR TO BEDSIDE. NOTIFIED PROVIDER AND ORDER FOR RLE VENOUS/ARTERIAL DUPLEX FOR AM AND IV MEDICATIONS FOR PAIN. EVENTUALLY PAIN SUBSIDED WITH INTERVENTION. WHEEZES/COARSE T/O WITH INTERVENTION FROM RT FOR NEB TX. SBA, PLEASANT AND COOPERATIVE. BILATERAL ACS WITH SWOLLEN/RED CIRCLED AREAS. NO REPEAT TEMPERATURE SPIKES. WILL PASS ON TO DAY RN
[2024-12-15] MEDS ORDERED: Vancomycin HCL 2,500 MG in NS 500 ML IV SCH (10:00)
--- NOTE | 2024-12-15 11:38 | NUR ---
UPDATE: PATIENT REPORTING SEVERE SUBSTERNAL CHEST PAIN RADIATING POSTERIORLY, PATIENT HYPOTENSIVE WITH MAP <65. SPO2 >90% ON 2L VIA NASAL CANULA, AUDIBLE WHEEZING HEARD WITHOUT AUSCULTATION. PROVIDER NOTIFIED OF CHANGES, NEW ORDERS RECEIVED. EKG OBTAINED, SEE CHART. PATIENT TRANSPORTED TO IMAGING VIA HOSPITAL BED AROUND [address] SCAN, THIS ABRASIVE WHEEL MOLDER AND PRECEPTING RN WITH PATIENT DURING SCAN. PATIENT WAS IN AND OUT OF CONCIOUSNESS DURING TRANSPORT, PATIENT AROUSABLE WITH PHYSICAL AND VERBAL STIMULI. SPO2 AND HR STABLE AT THIS TIME. PATIENT BACK TO PCU AROUND 1230. PATIENT CONTINUES TO BE HYPOTENSIVE, MAP LESS THAN [address] JOSHI AT BEDSIDE AND NEW ORDERS RECEIVED. DR PEREZ AT BEDSIDE FOR CONSULT. RT AT BEDSIDE FOR STAT BREATHING TREATMENT. PATIENT HYPERTENSIVE AFTER ADMINISTRATION OF EPINEPHRINE PER PROVIDER ORDERS, SEE EMAR. SEE EMAR FOR MORE DETAILS. PATIENT TRANSPORTED TO C CONSULTANT VIA HOSPITAL BED. REPORT GIVEN TO C CONSULTANT RN. REPORT GIVEN TO ROLLING CHAIR PUSHER AT 1325. SISTER DIONY CALLED, UPDATE PROVIDED [phone].
[2024-12-15] MEDS ORDERED: Nitroglycerin 0.4 MG SUBL SL PRN (12:05)
[2024-12-15] MEDS ORDERED: Nitroglycerin 0.4 MG SUBL SL ONE (12:10)
[2024-12-15] MEDS ORDERED: Nitroglycerin 0.4 MG SUBL ONE (12:10)
[2024-12-15 12:14] LABS: PCO2 Arterial 46.1 mmHg (35-45); PO2 Arterial 64.1 mmHg (80-100); pH Blood Arterial 7.38 (7.35-7.45)
[2024-12-15] MEDS ORDERED: Morphine Sulfate 10 MG/ML 1MLSYR IV STA (12:17)
[2024-12-15] MEDS ORDERED: Morphine Sulfate 10 MG/ML 1MLSYR ONE (12:20)
[2024-12-15] MEDS ORDERED: Norepinephrine Bitartrate 250 ML IV ONE (13:12)
[2024-12-15] MEDS ORDERED: NS 1,000 ML IV ONE (13:15)
[2024-12-15] MEDS ORDERED: FentaNYL Citrate 50 MCG/ML 2 ML Injection ONE (13:30)
[2024-12-15] MEDS ORDERED: Midazolam HCl 1MG / ML 2ML Vial ONE (13:30)
[2024-12-15] MEDS ORDERED: Phenylephrine HCl 100 MCG/ML-NS 10MLSYR (1MG/10ML) ONE (13:40)
[2024-12-15] MEDS ORDERED: Ondansetron HCl 2 MG / ML 2ML Vial ONE (13:43)
[2024-12-15] MEDS ORDERED: Verapamil HCL 2.5 MG/ML 2ML Injection ONE (14:28)
[2024-12-15] MEDS ORDERED: Heparin Sodium 1000 Units/ML 10ML MDV ONE (14:29)
[2024-12-15] MEDS ORDERED: NS 2,000 ML IV ONE (14:29)
[2024-12-15] MEDS ORDERED: NS 250 ML IV ONE (14:29)
[2024-12-15 15:30] LABS: Hematocrit 31.6 % (37.0-53.0); Hemoglobin 9.7 g/dL (13.5-17.5); Mean Corpuscular HGB Conc 30.7 g/dL (31.5-36.5); Mean Corpuscular Volume 95 fL (80-100); Mean Platelet Volume 9.4 fL (9.1-12.4); Platelet Count 152 K/mm3 (150-400); RDW Coefficient Variation 17.6 % (11.7-14.2); RDW Standard Deviation 61.1 fL (35.1-46.3); Red Blood Cell Count 3.34 M/mm3 (4.30-5.90); White Blood Cell Count 6.91 K/mm3 (4.00-11.30)
[2024-12-15 15:59] LABS: Albumin, Blood 2.6 g/dL (3.4-5.0); Albumin/Globulin Ratio 0.7 (0.8-1.8); Bilirubin, Total 0.3 mg/dL (0.1-1.0); Bun/Creatinine Ratio 13.3 (12.0-20.0); Calcium, Blood 7.9 mg/dL (8.5-10.1); Creatinine, Blood 2.63 mg/dL (0.60-1.20); Globulin, Blood 3.5 g/dL (2.2-4.0); Potassium, Blood 4.1 mmol/L (3.5-5.5); Total Protein, Blood 6.1 g/dL (6.4-8.2)
[2024-12-15] MEDS ORDERED: Lidocaine 2% Jelly Uro-Jet UR ONE (17:40)
[2024-12-15] MEDS ORDERED: Lactated Ringer's 1,000 ML IV SCH (18:00)
--- NOTE | 2024-12-15 18:28 | NUR ---
TR BAND: 2ML OUT @ 1515, 2ML OUT @ 1545, 3ML OUT AT 1605, 2ML OUT AT 1642, 2ML OUT AT 1702. BAND OFF AT 1804. SITE LOOKS THE SAME THROUGHOUT, BARELY RED AROUND SITE, NO SWELLING OR TENDERNESS.
--- NOTE | 2024-12-15 18:31 | NUR ---
PT CAME TO ME FROM [facility] ON , NOW OFF. TR BAND OFF SITE LOOKS GOOD. PT STATES HIS CHEST PAIN IS NOW A 5 INSTEAD OF 8. RESTIGN COMFORTABLY IN BED AFTER HIS MEAL. JACOBS INSERTED FOR FLUID CHALLENGE.
[2024-12-15 18:33] LABS: Source, Urine Clean Catch
[2024-12-15 18:44] LABS: Appearance, Urine Clear (Clear); Bilirubin, Urine Neg (Neg); Blood, Urine Neg (Neg); Color, Urine Yellow (P-Yellow); Glucose Qualitative, Urine 3+ (Neg); Ketones, Urine Neg (Neg); Leukocyte Esterase, Urine Neg (Neg); Nitrite, Urine Neg (Neg); Protein, Urine 1+ (Neg); Urobilinogen, Urine NORM (Normal)
[2024-12-15] MEDS ORDERED: Losartan Potassium 25 MG Tab PO SCH (21:00)
[2024-12-16] VITALS (16 sets, daily range): BP systolic 107–172; BP diastolic 53–76
[2024-12-16] MEDS ORDERED: NS 1,000 ML IV ONE
[2024-12-16 03:49] LABS: BASOPHILS ABSOLUTE AUTO 0.02 K/mm3 (0.00-0.23); BASOPHILS PERCENT AUTO 0 % (0-2); EOSINOPHILS ABSOLUTE AUTO 0.09 K/mm3 (0.00-0.68); EOSINOPHILS PERCENT AUTO 2 % (0-6); Hematocrit 29.6 % (37.0-53.0); Hemoglobin 9.1 g/dL (13.5-17.5); IMMATURE GRAN ABSOLUTE AUTO 0.05 K/mm3 (0.00-0.10); IMMATURE GRAN PERCENT AUTO 1 % (0-1); LYMPHOCYTES ABSOLUTE AUTO 0.49 K/mm3 (0.84-5.20); LYMPHOCYTES PERCENT AUTO 9 % (21-46); MONOCYTES ABSOLUTE AUTO 0.58 K/mm3 (0.16-1.47); MONOCYTES PERCENT AUTO 10 % (4-13); Mean Corpuscular HGB 29.2 pg (26.0-34.0); Mean Corpuscular HGB Conc 30.7 g/dL (31.5-36.5); Mean Corpuscular Volume 95 fL (80-100); Mean Platelet Volume 9.4 fL (9.1-12.4); NEUTROPHILS ABSOLUTE AUTO 4.38 K/mm3 (1.96-9.15); NEUTROPHILS PERCENT AUTO 78 % (41-73); Platelet Count 105 K/mm3 (150-400); RDW Coefficient Variation 17.7 % (11.7-14.2); RDW Standard Deviation 61.1 fL (35.1-46.3); Red Blood Cell Count 3.12 M/mm3 (4.30-5.90); White Blood Cell Count 5.61 K/mm3 (4.00-11.30)
[2024-12-16 04:09] LABS: Alanine Aminotransfer (ALT/SGP 42 U/L (12-78); Albumin, Blood 2.4 g/dL (3.4-5.0); Albumin/Globulin Ratio 0.7 (0.8-1.8); Alk Phos 56 U/L (50-136); Anion Gap 10 mmol/L (3-11); Aspartate Aminotrans (AST/SGOT 28 U/L (12-37); Bilirubin, Total 0.2 mg/dL (0.1-1.0); Blood Urea Nitrogen 30 mg/dL (8-24); Bun/Creatinine Ratio 16.8 (12.0-20.0); CO2, Blood 24 mmol/L (21-32); Calcium, Blood 7.6 mg/dL (8.5-10.1); Chloride, Blood 108 mmol/L (98-108); Creatinine, Blood 1.79 mg/dL (0.60-1.20); Globulin, Blood 3.4 g/dL (2.2-4.0); Glomerular Filtration Rate 40 (60-); Glucose, Blood 120 mg/dL (70-99); Sodium, Blood 138 mmol/L (136-145); Total Protein, Blood 5.8 g/dL (6.4-8.2); Vancomycin, Random 23.2 ug/mL
--- NOTE | 2024-12-16 05:24 | NUR ---
NOC SHIFT SUMMARY NO ACUTE EVENTS OVERNIGHT. PT AOX4 AND COOPERATIVE W/ CARE. USING CALL LIGHT APPROPRIATELY. PT ON 2L VIA NC TO MAINTAIN SATS>92%. EXP WHEEZES T/O. PT RECIEVING BREATHING TX FOR THIS W/ GOOD EFFECT. DENIES CP OR SOB DURING THIS SHIFT. SINUS RHYTHM RATE OF 90S, BP STABLE. LEVOPHED REMAINS ON STAND BY. PT AFEBRILE. GOOD URINE OUTPUT VIA JACOBS CATH-PATENT AND DRAINING TO GRAVITY. NO BM THIS SHIFT, THOUGHT PT HAD URGE AND WAS UP TO RESTROOM W/ LINE ASSIST. PT SLEPT FOR GOOD PORTION OF NIGHT, WAS UP AT 0400 AND PREFERS TO BE IN CHAIR. PT TOLERATING PO INTAKE WELL. SKIN IS PALE W/ SCATTERED BRUISES ALL OVER. R. RADIAL SITE IS UNCHANGED, NO HEMATOMA OR OOZING OBSERVED. ARM BOARD REMAINS IN PLACE. TR BAND REMOVED DURING DAY SHIFT YESTERDAY. PT BILAT AC'S REMAIN REDDENED, SWOLLEN, AND WARM TO TOUCH. PT DENIES TENDERNESS TO AREA. PT USING CALL LIGHT APPROPRIATELY AND IT IS WITHIN REACH. PLAN OF CARE ONGOING.
[2024-12-16] MEDS ORDERED: Losartan Potassium 25 MG Tab PO SCH (09:00)
--- NOTE | 2024-12-16 10:50 | NUR ---
CARE ASSUMPTION RECEIVED CARE FOR PT AT 0710 AND DURING REPORT FROM NIGHTSHIFT NURSE PT WAS ASLEEP AND RESTING IN BED. PER REPORT PT HAD RECENTLY FALLEN ASLEEP AT 0600 AFTER BEING AWAKE FOR MOST OF THE EVENING. PER REPORT PT WAS ON 1-2L VIA NASAL CANNULA WITH SATS ABOVE 90%. PT IS ALERT AND ORIENTED X 4 AND WAS ABLE TO COMMUNICATE WITH STAFF WE ENTERED THE ROOM TO ASSESS PTS IV ACCESS AND SCATTERED BRUISING. PT CONTINUED RESTING IN BED UNTIL MORNING MEDICATIONS AND ASSESSMENT WHERE HE WAS THEN TRANSFERRED TO THE RECLINER FOR BREAKFAST.
[2024-12-16] MEDS ORDERED: Vancomycin HCL 1,250 MG in NS 250 ML IV SCH (14:00)
[2024-12-16 15:31] LABS: BASOPHILS ABSOLUTE AUTO 0.01 K/mm3 (0.00-0.23); BASOPHILS PERCENT AUTO 0 % (0-2); EOSINOPHILS ABSOLUTE AUTO 0.12 K/mm3 (0.00-0.68); EOSINOPHILS PERCENT AUTO 2 % (0-6); Hematocrit 30.8 % (37.0-53.0); Hemoglobin 9.3 g/dL (13.5-17.5); IMMATURE GRAN ABSOLUTE AUTO 0.03 K/mm3 (0.00-0.10); IMMATURE GRAN PERCENT AUTO 1 % (0-1); LYMPHOCYTES ABSOLUTE AUTO 0.56 K/mm3 (0.84-5.20); LYMPHOCYTES PERCENT AUTO 10 % (21-46); MONOCYTES ABSOLUTE AUTO 0.69 K/mm3 (0.16-1.47); MONOCYTES PERCENT AUTO 12 % (4-13); Mean Corpuscular HGB 28.9 pg (26.0-34.0); Mean Corpuscular HGB Conc 30.2 g/dL (31.5-36.5); Mean Corpuscular Volume 96 fL (80-100); Mean Platelet Volume 9.1 fL (9.1-12.4); NEUTROPHILS ABSOLUTE AUTO 4.28 K/mm3 (1.96-9.15); NEUTROPHILS PERCENT AUTO 75 % (41-73); Platelet Count 162 K/mm3 (150-400); RDW Coefficient Variation 17.5 % (11.7-14.2); RDW Standard Deviation 61.5 fL (35.1-46.3); Red Blood Cell Count 3.22 M/mm3 (4.30-5.90); White Blood Cell Count 5.69 K/mm3 (4.00-11.30)
--- NOTE | 2024-12-16 17:42 | NUR ---
SHIFT SUMMARY PT HAS BEEN ALERT AND ORIENTED X 4 THROUGHOUT SHIFT AND ABLE TO MAKE NEEDS KNOWN. HE HAS FULL RANGE OF MOTION IN EXTREMETIES AND IS ABLE TO AMBULATE TO/FROM BED, CHAIR AND TOILET WITH NURSE SBA TO MANAGE LINES AND CORDS. PT HAS HAD SBP BETWEEN 100'S-140'S, HR IN 70'S-90'S AND HAS BEEN IN NORMAL SINUS RHYTHM. RESPIRATIONS HAVE BEEN EVEN AND UNLABORED WITH LUNG SOUNDS CLEAR THROUGHOUT. PT IS MOSTLY ON RA BUT OCCASSIONALLY NEEDS 1-2L OXYGEN VIA NC WHILE LAYING DOWN OR SLEEPING. PT HAS JACOBS CATHETER IN PLACE, DRAINING TO GRAVITY, WITH SIGNIFICANT OUTPUT THIS SHIFT. PT AMBULATED TO TOILET THIS AFTERNOON AND HAD A BOWEL MOVEMENT WITHIN NORMAL LIMITS. PT HAS SCATTERED BRUISING THROUGHOUT BOTH UPPER EXTREMETIES FROM RECENT IV'S AND IV ATTEMPTS. PT HAD RECENT TR BAND ON RIGHT RADIAL SITE THAT HAS BEEN REMOVED PRIOR TO OUR SHIFT AND WEARING BRACE FOR MOST OF THE DAY, REFUSING TO WEAR IT TOWARDS DINNER TIME. PT HAS HAD PAIN IN UPPER LEFT CHEST THAT RADIATES TO THE BACK, DOCTOR BARRIENTOS NOTIFIED, AND RECEIVED ONE DOSE OF TYLENOL THIS AFTERNOON.
[2024-12-16] MEDS ORDERED: Trimethoprim/Sulfamethoxazole DS Tab PO SCH (21:00)
--- NOTE | 2024-12-16 23:20 | NUR ---
ASSUMPTION OF CARE @ APPROX 1900 PT IS A&O X4, ABLE TO MAKE NEEDS KNOWN, MOVING ALL EXTREMITIES WITH PURPOSE, OBEYS COMMANDS, CONCRETE IN THOUGHT PROCESS, PT SBA TO BATHROOM, REPOSITIONING SELF. CONTINUOUS SPO2, SPO2 GREATER 90% ON RA, WHILE SNORING PT WILL DESATURATE TO 80%-NONSUSTAINING/ PT REFUSING TO WEAR NC-STATING HE DOES NOT NEED IT AT HOME SO HE DOES NOT NEED IT HERE/ATTEMPTED TO EDUCATED PATIENT, NO SIGNS OF RESPIRATORY DISTRESS NOTED, PT HAVING EXTIRPATORY WHEEZE PRIOR TO BREATHING TREATMENT BUT HAS IMPROVED. CONTINUOUS TELE MONITORING, SINUS 80 S, BP STABLE WITH MAP GREATER THAN 65, PULSES PRESENT T/O, CAP REFILL WNL, PT DENEIS CHEST P/P AT THIS TIME. BOWEL TONES PRESENT IN ALL 4Q, PT DENIES FEELINGS OF CONSTIPATION AND NAUSEA, STOOL APPEARS BROWN. JACOBS CATH REMOVED THIS SHIFT/ PATIENT EDUCATED ON RISK FOR RETENTION WITH FLOMAX BEING HELD 05/20 DUE SOFT BP, PT STATES HE PEES JUST FINE AND DOES NOT CARE IF HE DID NOT GET THAT MEDICATION/ PT EDUCATED ON FLOMAX, PT STILL WANTING ON REMOVAL OF JACOBS. BED LOWEST POSITION, CALL LIGHT IN REACH
[2024-12-17 04:07] VITALS: BP 112/56
[2024-12-17 04:48] LABS: BASOPHILS ABSOLUTE AUTO 0.01 K/mm3 (0.00-0.23); BASOPHILS PERCENT AUTO 0 % (0-2); EOSINOPHILS PERCENT AUTO 2 % (0-6); Hematocrit 31.1 % (37.0-53.0); Hemoglobin 9.4 g/dL (13.5-17.5); IMMATURE GRAN ABSOLUTE AUTO 0.03 K/mm3 (0.00-0.10); IMMATURE GRAN PERCENT AUTO 1 % (0-1); LYMPHOCYTES ABSOLUTE AUTO 0.51 K/mm3 (0.84-5.20); LYMPHOCYTES PERCENT AUTO 10 % (21-46); MONOCYTES ABSOLUTE AUTO 0.62 K/mm3 (0.16-1.47); MONOCYTES PERCENT AUTO 12 % (4-13); Mean Corpuscular HGB 28.9 pg (26.0-34.0); Mean Corpuscular HGB Conc 30.2 g/dL (31.5-36.5); Mean Corpuscular Volume 96 fL (80-100); Mean Platelet Volume 9.4 fL (9.1-12.4); NEUTROPHILS ABSOLUTE AUTO 3.71 K/mm3 (1.96-9.15); NEUTROPHILS PERCENT AUTO 75 % (41-73); Platelet Count 156 K/mm3 (150-400); RDW Coefficient Variation 17.2 % (11.7-14.2); RDW Standard Deviation 60.3 fL (35.1-46.3); Red Blood Cell Count 3.25 M/mm3 (4.30-5.90); White Blood Cell Count 4.98 K/mm3 (4.00-11.30)
[2024-12-17 05:26] LABS: Bun/Creatinine Ratio 20.2 (12.0-20.0); Calcium, Blood 8.8 mg/dL (8.5-10.1); Creatinine, Blood 1.24 mg/dL (0.60-1.20); Potassium, Blood 4.4 mmol/L (3.5-5.5)
--- NOTE | 2024-12-17 05:45 | NUR ---
SHIFT SUMMARRY PATIENTS CONDITION UNCHANGED FROM PREVIOUS NOTE. VSS. BED LOWEST POSITION, CALL LIGHT IN REACH, AWAITING TO GIVE REPORT TO ONCOMING RN.
[2024-12-17 07:39] VITALS: BP 124/68
[2024-12-17] MEDS ORDERED: CefTRIAXone Sodium 1,000 MG in NS 100 ML IV SCH (09:00)
--- NOTE | 2024-12-17 10:10 | NUR ---
PT A&Ox4 AND ABLE TO MAKE NEEDS KNOWN. HE IS ON RA WHILE AWAKE AND 2LNC WHILE SLEEPING. HE AMBULATES TO THE RESTROOM W/SBA. PT C/O HEADACHE THIS MORNING AND THAT HE FEELS LIKE HE HAS THE FLU WHILE DR. GRIFFIN ROUNDING. IT WAS NOTICED THAT THE REDNESS TO HIS LAC HAD SPREAD OUTSIDE THE ORIGINAL MARKING. AREA REMARKED WITH SKIN MARKER. REPORT WAS CALLED TO NIKA FELTON @6977 AND PT WAS TRANSFERRED TO RM [id number] @1010 WITH ALL PERSONAL BELONGINGS IN HIS POSSESION.
[2024-12-17 10:28] VITALS: BP 120/72
--- NOTE | 2024-12-17 11:05 | NUR ---
PT ARRIVED TO FLOOR AT 1055 AOX4 VIA WHEELCHAIR. RECIEVED REPORT PRIOR TO ARRIVAL. CALL LIGHT IS IN REACH AND PT ORIENTED TO ROOM.
[2024-12-17 13:51] LABS: Vancomycin, Trough 12.2 ug/mL (5.0-10.0)
[2024-12-17] MEDS ORDERED: Vancomycin HCL 1,250 MG in NS 250 ML IV SCH (14:01)
[2024-12-17 16:46] VITALS: BP 140/71
--- NOTE | 2024-12-17 17:17 | NUR ---
NO DISTRESS NOTED. PT AOX4 AND COOPERATIVE OF CARE. PT DID NOT WORK WITH OT MUCH, BUT SEEMED TO STAY IN A PLEASANT MOOD. CALL LIGHT IS IN REACH WILL CONTINUE TO MONITOR.
[2024-12-17 19:54] VITALS: BP 149/74
[2024-12-17 23:31] VITALS: BP 132/58
[2024-12-18 04:19] VITALS: BP 125/68
[2024-12-18 04:36] LABS: BASOPHILS ABSOLUTE AUTO 0.02 K/mm3 (0.00-0.23); BASOPHILS PERCENT AUTO 0 % (0-2); EOSINOPHILS ABSOLUTE AUTO 0.12 K/mm3 (0.00-0.68); EOSINOPHILS PERCENT AUTO 3 % (0-6); Hematocrit 32.4 % (37.0-53.0); Hemoglobin 9.8 g/dL (13.5-17.5); IMMATURE GRAN ABSOLUTE AUTO 0.02 K/mm3 (0.00-0.10); IMMATURE GRAN PERCENT AUTO 0 % (0-1); LYMPHOCYTES ABSOLUTE AUTO 0.68 K/mm3 (0.84-5.20); LYMPHOCYTES PERCENT AUTO 14 % (21-46); MONOCYTES ABSOLUTE AUTO 0.52 K/mm3 (0.16-1.47); MONOCYTES PERCENT AUTO 11 % (4-13); Mean Corpuscular HGB 29.3 pg (26.0-34.0); Mean Corpuscular HGB Conc 30.2 g/dL (31.5-36.5); Mean Corpuscular Volume 97 fL (80-100); Mean Platelet Volume 9.2 fL (9.1-12.4); NEUTROPHILS ABSOLUTE AUTO 3.35 K/mm3 (1.96-9.15); NEUTROPHILS PERCENT AUTO 71 % (41-73); Platelet Count 180 K/mm3 (150-400); RDW Coefficient Variation 17.1 % (11.7-14.2); RDW Standard Deviation 60.9 fL (35.1-46.3); Red Blood Cell Count 3.35 M/mm3 (4.30-5.90); White Blood Cell Count 4.71 K/mm3 (4.00-11.30)
[2024-12-18 04:56] LABS: Bun/Creatinine Ratio 15.2 (12.0-20.0); Calcium, Blood 8.8 mg/dL (8.5-10.1); Creatinine, Blood 1.25 mg/dL (0.60-1.20); Potassium, Blood 4.2 mmol/L (3.5-5.5)
--- NOTE | 2024-12-18 06:46 | NUR ---
[facility] NOC SHIFT PT ADMITTED FOR GASTROINTESTINAL BLEED AND LIGHT HEADEDNESS. PT DOES NOT REQUIRE SUPPLEMENTAL OXYGEN. PT IS INDEPENDENT AND ABLE TO AMBULATE TO THE TOILET BY SELF. BED IS IN LOW POSITION, RAILS TIMES TWO, AND CALL LIGHT IS WITHIN REACH.
[2024-12-18 07:30] VITALS: BP 138/62
[2024-12-18] MEDS ORDERED: Amoxicillin/Clavulanate K 875 MG Tab PO SCH (10:00)
[2024-12-18] MEDS ORDERED: Trimethoprim/Sulfamethoxazole DS Tab PO SCH (10:00)
[2024-12-18 15:09] VITALS: BP 129/77
--- NOTE | 2024-12-18 17:08 | NUR ---
SHIFT SUMMARY: PATIENT A&OX4/INDEPENDENT/SBA, MAKES NEEDS KNOWN. HE WAS SWITCHED TO ORAL ANTIBIOTICS TODAY DUE TO LOSE OF PERIPHERAL ACCESS AND SEVERAL FAILED IVS THIS ADMISSION. PATIENT IS PLEASANT AND COOPEARTIVE WITH CARE, IN BED, RESTING, CALL LIGHT WITHIN REACH, NO SIGNS OR SYMPTOMS OF DISTRESS, PLAN OF CARE ONGOING.
[2024-12-18 20:39] VITALS: BP 107/56
[2024-12-19 00:37] VITALS: BP 138/64
[2024-12-19 05:40] VITALS: BP 140/69
[2024-12-19 06:24] LABS: BASOPHILS ABSOLUTE AUTO 0.02 K/mm3 (0.00-0.23); BASOPHILS PERCENT AUTO 0 % (0-2); EOSINOPHILS ABSOLUTE AUTO 0.18 K/mm3 (0.00-0.68); EOSINOPHILS PERCENT AUTO 3 % (0-6); Hematocrit 31.7 % (37.0-53.0); Hemoglobin 9.7 g/dL (13.5-17.5); Mean Corpuscular HGB 28.8 pg (26.0-34.0); Mean Corpuscular HGB Conc 30.6 g/dL (31.5-36.5); Mean Corpuscular Volume 94 fL (80-100); Platelet Count 251 K/mm3 (150-400); RDW Coefficient Variation 17.2 % (11.7-14.2); RDW Standard Deviation 58.7 fL (35.1-46.3); Red Blood Cell Count 3.37 M/mm3 (4.30-5.90); White Blood Cell Count 5.55 K/mm3 (4.00-11.30)
[2024-12-19 06:27] LABS: IMMATURE GRAN ABSOLUTE AUTO 0.09 K/mm3 (0.00-0.10); IMMATURE GRAN PERCENT AUTO 2 % (0-1); LYMPHOCYTES ABSOLUTE AUTO 0.99 K/mm3 (0.84-5.20); LYMPHOCYTES PERCENT AUTO 18 % (21-46); MONOCYTES ABSOLUTE AUTO 0.49 K/mm3 (0.16-1.47); MONOCYTES PERCENT AUTO 9 % (4-13); NEUTROPHILS ABSOLUTE AUTO 3.78 K/mm3 (1.96-9.15); NEUTROPHILS PERCENT AUTO 68 % (41-73)
--- NOTE | 2024-12-19 06:38 | NUR ---
[facility] NOC SHIFT PT ADMITTED FOR GASTROINTESTINAL BLEED AND LIGHT HEADEDNESS. PT DOES NOT REQUIRE SUPPLEMENTAL OXYGEN. PT IS INDEPENDENT AND ABLE TO AMBULATE TO THE TOILET BY SELF. PT IS COOPERATIVE WITH CARE AND ABLE TO MAKE NEEDS KNOWN TO STAFF. BED IS IN LOW POSITION, RAILS TIMES TWO, AND CALL LIGHT IS WITHIN REACH.
[2024-12-19 06:40] LABS: Bun/Creatinine Ratio 18.9 (12.0-20.0); Calcium, Blood 8.9 mg/dL (8.5-10.1); Creatinine, Blood 1.43 mg/dL (0.60-1.20); Potassium, Blood 4.1 mmol/L (3.5-5.5)
[2024-12-19 07:28] VITALS: BP 145/70
[2024-12-19 16:04] VITALS: BP 151/68
[2024-12-19] MEDS ORDERED: NICO21TP TOP (16:15)
[2024-12-19] MEDS ORDERED: PROTONIX40 M2 PO (16:16)
--- NOTE | 2024-12-19 17:34 | NUR ---
SHIFT SUMMARY: PATIENT IS RESTING IN BED, SISTER WAS IN ROOM FOR MOST OF THE AFTERNOON. NO IV ACCESS. TELEMETRY REMOVED, NO CARDIAC EVENTS, NO REPORTS OF CHEST PAIN OR DISCOMFORT. PATIENT IS ON ROOM AIR. PT/OT RECOMMENDED DC TO HOME WITH HOME HEALTH TWICE A WEEK AND NOT SNF, PATIENT VOICED CONCERNS, PT/OT REEVALUATED, WAITING FOR RECOMMENDATIONS. HE HAS BEEN PLEASANT AND COMPLIANT WITH CARE THIS SHIFT.
[2024-12-19 19:27] VITALS: BP 124/68
[2024-12-20 03:20] VITALS: BP 116/60
--- NOTE | 2024-12-20 04:21 | NUR ---
SHIFT SUMM: PT IS A 69 YO DNI WHO WAS ADMITTED FOR GI BLEED WHICH IS NOW RESOLVED. PT WAS SUPPOSED TO D/C YESTERDAY BUT IS NOW STILL ADMITTED FOR HOPES OF RETURNING TO [facility] INSTEAD OF HOME YURIDIA WHITE DOES NOT FEEL SAFE RETURNING HOME BECAUSE HE SAID HE CANT MAKE IT UP THE STAIRS TO HIS HOME AND USES A W/C AT [facility] WITH SOME IND TO THE BATHROOM AND VERY SHORT DISTANCES WALKING. PT IS A&OX4 AND CALLS TO MAKE NEEDS KNOWN. PT ON RA AND NO TELE AND A NO IV ORDER IN PLACE. PT HAS TAKEN MEDS WWW AND HAS BEEN MEDICATED PER EMAR. PT IS IN [facility] AND WAS ABLE TO GET SOME REST THIS SHIFT. CALL LIGHT IN REACH AND BED LOW AND LOCKED.
[2024-12-20 07:23] VITALS: BP 126/76
--- NOTE | 2024-12-20 12:30 | NUR ---
CALLED DR TOVAR TO CHANGE DISCHARGE ORDER TO REFLECT DISCHARGE TO FACILITY RATHER THAN HOME WITH HH
[2024-12-20] MEDS ORDERED: HYDACE10B PO (13:05)
--- NOTE | 2024-12-20 16:43 | NUR ---
SHIFT SUMMARY REPORT CALLED TO [facility], SPOKE WITH EMILY. DISCHARGE PACKET SENT WITH [employer], LEFT VIA AND [place] [facility]. A/OX4. NO IV TO REMOVE. ON ROOM AIR. SKIN INTACT WITH MILD BILATERAL UPPER ARM REDNESS. HARD SCRIPT FOR NARCOTICS SENT IN PACKET, COPY IN CHART.
== END 2024-12-20 14:25 | DRG 377 ==
LOC: ER 14:34 → MEDS 17:36 → PCU 17:36 → ICUE 12-15 14:14 → PCU 12-16 18:28 → MEDS 12-17 10:13
PROVIDERS: Emergency Medicine; Family Medicine; Hospitalist; Internal Medicine; Internal Medicine Critical Care Medicine; Nurse Practitioner Acute Care; Student in an Organized Health Care Education/Training Program; Surgery; ADMIT Family Medicine
PROC: 30233N1 Transfusion of Nonautologous Red Blood Cells into Peripheral Vein, Percutaneous Approach (ICD-10-PCS; principal; 2024-12-10)
PROC: 0DJD8ZZ Inspection of Lower Intestinal Tract, Via Natural or Artificial Opening Endoscopic (ICD-10-PCS; 2024-12-13)
PROC: 0DJ08ZZ Inspection of Upper Intestinal Tract, Via Natural or Artificial Opening Endoscopic (ICD-10-PCS; 2024-12-13 12:15)
PROC: 4A133R1 Monitoring of Arterial Saturation, Peripheral, Percutaneous Approach (ICD-10-PCS; 2024-12-15)
PROC: B2111ZZ Fluoroscopy of Multiple Coronary Arteries using Low Osmolar Contrast (ICD-10-PCS; 2024-12-15)
PROC: 4A023N7 Measurement of Cardiac Sampling and Pressure, Left Heart, Percutaneous Approach (ICD-10-PCS; 2024-12-15)
PROC: 3E033XZ Introduction of Vasopressor into Peripheral Vein, Percutaneous Approach (ICD-10-PCS; 2024-12-15)
DX: K92.2 Gastrointestinal hemorrhage, unspecified (principal); J96.01 Acute respiratory failure with hypoxia; N17.9 Acute kidney failure, unspecified; D62 Acute posthemorrhagic anemia; I25.110 Atherosclerotic heart disease of native coronary artery with unstable angina pectoris; F17.213 Nicotine dependence, cigarettes, with withdrawal; L03.113 Cellulitis of right upper limb; L03.114 Cellulitis of left upper limb; G89.29 Other chronic pain; I77.1 Stricture of artery; Z68.37 Body mass index [BMI] 37.0-37.9, adult; I80.8 Phlebitis and thrombophlebitis of other sites; E66.01 Morbid (severe) obesity due to excess calories; G47.33 Obstructive sleep apnea (adult) (pediatric); M19.90 Unspecified osteoarthritis, unspecified site; I95.89 Other hypotension; D50.9 Iron deficiency anemia, unspecified; I12.9 Hypertensive chronic kidney disease with stage 1 through stage 4 chronic kidney disease, or unspecified chronic kidney disease; N18.30 Chronic kidney disease, stage 3 unspecified; E78.5 Hyperlipidemia, unspecified; J44.9 Chronic obstructive pulmonary disease, unspecified; G62.9 Polyneuropathy, unspecified; F12.90 Cannabis use, unspecified, uncomplicated; I73.9 Peripheral vascular disease, unspecified; M54.16 Radiculopathy, lumbar region; R73.03 Prediabetes; F17.210 Nicotine dependence, cigarettes, uncomplicated; F32.9 Major depressive disorder, single episode, unspecified; Z87.440 Personal history of urinary (tract) infections; Z86.79 Personal history of other diseases of the circulatory system; Z95.5 Presence of coronary angioplasty implant and graft; Z85.46 Personal history of malignant neoplasm of prostate; Z96.641 Presence of right artificial hip joint; Z98.890 Other specified postprocedural states; Z91.030 Bee allergy status; Z91.038 Other insect allergy status; Z79.891 Long term (current) use of opiate analgesic; Z79.02 Long term (current) use of antithrombotics/antiplatelets; Z79.51 Long term (current) use of inhaled steroids; Z79.52 Long term (current) use of systemic steroids; Z79.82 Long term (current) use of aspirin; Z79.84 Long term (current) use of oral hypoglycemic drugs; Z79.899 Other long term (current) drug therapy
CPT/HCPCS: 36415; 36600; 51702; 71045; 71275; 74177; 76882; 76937; 80047; 80048; 80053; 80202; 82728; 82803; 82947; 83540; 83550; 83605; 83690; 83735; 83880; 84100; 84145; 84484; 85014; 85018; 85025; 85027; 85045; 85610; 86850; 86900; 86901; 86923; 87040; 87077; 87147; 87186; 93005; 93010; 93308; 93321; 93458; 93926; 93971; 94640; 94664; 94760; 94762; 96360-59; 97110; 97116; 97162; 97165; 97530; 97535; 99152; 99285-25; A9270; C1751; C1769; C1887; C1894; J0696; J1171; J1644; J1938; J2250; J2270; J2371; J2405; J2470; J2704; J2916; J3010; J3370; J7030; J7040; J7050; J7120; P9016; Q9967

== ENCOUNTER 2025-04-05 18:25 | Emergency (ER) | payer MEDICARE, OTHER ==
[~2025-04-05] VITALS: Ht 175.3 cm; Wt 108.9 kg
[~2025-04-05 18:25] MED LIST changes: +FURO20 PO; +HYDACE10B PO; +PROTONIX40 M2 PO
[2025-04-05] MEDS ORDERED: NITR.4SL SL (18:46)
[2025-04-05] MEDS ORDERED: ZYRTEC10 M1 PO (18:46)
[2025-04-05] MEDS ORDERED: ACET500 PO (18:47)
[2025-04-05 18:52] LABS: BASOPHILS ABSOLUTE AUTO 0.04 K/mm3 (0.00-0.23); BASOPHILS PERCENT AUTO 0 % (0-2); EOSINOPHILS ABSOLUTE AUTO 0.23 K/mm3 (0.00-0.68); EOSINOPHILS PERCENT AUTO 3 % (0-6); Hematocrit 35.2 % (37.0-53.0); Hemoglobin 10.9 g/dL (13.5-17.5); IMMATURE GRAN ABSOLUTE AUTO 0.05 K/mm3 (0.00-0.10); IMMATURE GRAN PERCENT AUTO 1 % (0-1); LYMPHOCYTES ABSOLUTE AUTO 1.13 K/mm3 (0.84-5.20); LYMPHOCYTES PERCENT AUTO 12 % (21-46); MONOCYTES ABSOLUTE AUTO 0.95 K/mm3 (0.16-1.47); MONOCYTES PERCENT AUTO 10 % (4-13); Mean Corpuscular HGB Conc 31.0 g/dL (31.5-36.5); Mean Corpuscular Volume 93 fL (80-100); NEUTROPHILS ABSOLUTE AUTO 6.91 K/mm3 (1.96-9.15); NEUTROPHILS PERCENT AUTO 74 % (41-73); NRBC ABSOLUTE 0.00 K/mm3 (0.00-0.02); NRBC Auto 0.0 /100 WBC (0.0-0.2); Platelet Count 271 K/mm3 (150-400); RDW Coefficient Variation 15.5 % (11.7-14.2); RDW Standard Deviation 52.8 fL (35.1-46.3)
[2025-04-05 19:09] LABS: Magnesium, Blood 2.5 mg/dL (1.6-2.4)
[2025-04-05 19:10] LABS: Alanine Aminotransfer (ALT/SGP 25.0 U/L (12-78); Albumin, Blood 3.4 g/dL (3.4-5.0); Albumin/Globulin Ratio 0.9 (0.8-1.8); Anion Gap 9.0 mmol/L (3-11); Aspartate Aminotrans (AST/SGOT 17.0 U/L (12-37); Bilirubin, Total 0.4 mg/dL (0.1-1.0); Blood Urea Nitrogen 49.0 mg/dL (8-24); CO2, Blood 25.0 mmol/L (21-32); Calcium, Blood 8.7 mg/dL (8.5-10.1); Chloride, Blood 105.0 mmol/L (98-108); Creatinine, Blood 2.89 mg/dL (0.60-1.20); Globulin, Blood 3.8 g/dL (2.2-4.0); Glucose, Blood 123.0 mg/dL (70-99); Phosphorus, Blood 5.3 mg/dL (2.5-4.9); Potassium, Blood 4.4 mmol/L (3.5-5.5); Sodium, Blood 135.0 mmol/L (136-145); Total Protein, Blood 7.2 g/dL (6.4-8.2)
[2025-04-05] MEDS ORDERED: Doxycycline Hyclate 100 MG in Dextrose 5% 250 ML IV ONE (20:00)
[2025-04-05] MEDS ORDERED: NS 1,000 ML IV SCH (20:00)
[2025-04-05] MEDS ORDERED: CefTRIAXone Sodium 1,000 MG in NS 100 ML IV ONE (20:00)
[2025-04-05] MEDS ORDERED: AMOCLA875 PO (20:29)
[2025-04-05] MEDS ORDERED: DOXY100 PO (20:29)
[2025-04-05 22:56] LABS: Source, Urine Clean Catch
[2025-04-05 23:02] LABS: Bilirubin, Urine Neg (Neg); Glucose Qualitative, Urine 1+ (Neg); Ketones, Urine Neg (Neg); Leukocyte Esterase, Urine 3+ (Neg); Protein, Urine 2+ (Neg); Specific Gravity, Urine 1.020 (1.003-1.022); Urobilinogen, Urine NORM (Normal)
[2025-04-05 23:03] LABS: Color, Urine Yellow (P-Yellow)
[2025-04-05 23:13] LABS: Red Blood Cells, Urine 0-2 /hpf (0-2); White Blood Cells, Urine TNTC /hpf (0-5)
[2025-04-06 00:15] VITALS: BP 103/54
== END 2025-04-06 00:45 | disposition home or self-care (01) ==
LOC: ER 18:25
PROVIDERS: Emergency Medicine
DX: R07.2 Precordial pain (principal); R05.9 Cough, unspecified; Z91.030 Bee allergy status; Z79.899 Other long term (current) drug therapy; Z79.2 Long term (current) use of antibiotics; I10 Essential (primary) hypertension; J44.9 Chronic obstructive pulmonary disease, unspecified; F17.210 Nicotine dependence, cigarettes, uncomplicated
CPT/HCPCS: 36415; 71045; 80053; 81001; 83605; 83735; 84100; 84484; 85025; 85379; 87040; 87077; 87086; 87186; 93005; 93010; 96365; 96367; 99285-25; J0696; J7030; J7060

== ENCOUNTER 2025-05-14 11:16 | Emergency (ER) | payer MEDICARE, OTHER ==
[~2025-05-14] VITALS: Ht 177.8 cm; Wt 113.4 kg
[~2025-05-14 11:16] MED LIST changes: +ACET500 PO; +AMOCLA875 PO; +DOXY100 PO; +NITR.4SL SL; +ZYRTEC10 M1 PO
[2025-05-14 11:42] LABS: BASOPHILS ABSOLUTE AUTO 0.03 K/mm3 (0.00-0.23); BASOPHILS PERCENT AUTO 0 % (0-2); EOSINOPHILS ABSOLUTE AUTO 0.15 K/mm3 (0.00-0.68); EOSINOPHILS PERCENT AUTO 2 % (0-6); Hematocrit 26.1 % (37.0-53.0); Hemoglobin 7.7 g/dL (13.5-17.5); IMMATURE GRAN ABSOLUTE AUTO 0.08 K/mm3 (0.00-0.10); IMMATURE GRAN PERCENT AUTO 1 % (0-1); LYMPHOCYTES ABSOLUTE AUTO 0.72 K/mm3 (0.84-5.20); LYMPHOCYTES PERCENT AUTO 10 % (21-46); MONOCYTES ABSOLUTE AUTO 0.58 K/mm3 (0.16-1.47); MONOCYTES PERCENT AUTO 8 % (4-13); Mean Corpuscular HGB Conc 29.5 g/dL (31.5-36.5); Mean Corpuscular Volume 98 fL (80-100); NEUTROPHILS ABSOLUTE AUTO 5.68 K/mm3 (1.96-9.15); NEUTROPHILS PERCENT AUTO 79 % (41-73); NRBC ABSOLUTE 0.04 K/mm3 (0.00-0.02); NRBC Auto 0.6 /100 WBC (0.0-0.2); Platelet Count 352 K/mm3 (150-400); RDW Coefficient Variation 17.5 % (11.7-14.2); RDW Standard Deviation 59.1 fL (35.1-46.3)
[2025-05-14 11:55] LABS: D-Dimer, Quantitative 4.2 mg/L FEU (0.00-0.52); Prothrombin Time Results 11.4 Sec (9.7-11.5)
[2025-05-14 11:58] LABS: pH Blood Venous 7.31 (7.34-7.37)
[2025-05-14 12:03] LABS: Alanine Aminotransfer (ALT/SGP 27.0 U/L (12-78); Albumin, Blood 3.1 g/dL (3.4-5.0); Albumin/Globulin Ratio 0.8 (0.8-1.8); Anion Gap 5.0 mmol/L (3-11); Aspartate Aminotrans (AST/SGOT 26.0 U/L (12-37); Bilirubin, Total 0.5 mg/dL (0.1-1.0); Blood Urea Nitrogen 24.0 mg/dL (8-24); CO2, Blood 30.0 mmol/L (21-32); Calcium, Blood 9.3 mg/dL (8.5-10.1); Chloride, Blood 108.0 mmol/L (98-108); Creatinine, Blood 1.28 mg/dL (0.60-1.20); Globulin, Blood 3.9 g/dL (2.2-4.0); Glucose, Blood 106.0 mg/dL (70-99); Potassium, Blood 4.2 mmol/L (3.5-5.5); Sodium, Blood 139.0 mmol/L (136-145); Total Protein, Blood 7.0 g/dL (6.4-8.2)
[2025-05-14] MEDS ORDERED: Albuterol 2.5 MG/3 ML VIAL INH ONE (12:15)
[2025-05-14 13:22] LABS: CORONAVIRUS COVID-19 AG Negative (NEGATIVE)
[2025-05-14] MEDS ORDERED: DOCU100 PO (13:30)
[2025-05-14] MEDS ORDERED: BISA10S (13:31)
[2025-05-14] MEDS ORDERED: TAMS.4ER PO (13:32)
[2025-05-14] MEDS ORDERED: HYDMOR2 PO (13:35)
[2025-05-14 15:00] VITALS: BP 123/96
== END 2025-05-14 15:40 | disposition home or self-care (01) ==
LOC: ER 11:16
PROVIDERS: Emergency Medicine
DX: J44.1 Chronic obstructive pulmonary disease with (acute) exacerbation (principal); J98.01 Acute bronchospasm; I12.9 Hypertensive chronic kidney disease with stage 1 through stage 4 chronic kidney disease, or unspecified chronic kidney disease; N18.9 Chronic kidney disease, unspecified; Z91.030 Bee allergy status; Z79.899 Other long term (current) drug therapy; F17.210 Nicotine dependence, cigarettes, uncomplicated
CPT/HCPCS: 71045; 80053; 82803; 83880; 84484; 85025; 85379; 85610; 87428-QW; 94640; 94660; 94664; 96374; 99285-25; J1938

== ENCOUNTER 2025-07-01 15:03 | Emergency (ER) | payer MEDICARE, OTHER ==
[~2025-07-01] VITALS: Ht 175.3 cm; Wt 117.9 kg
[~2025-07-01 15:03] MED LIST changes: +BISA10S; +DOCU100 PO; +TAMS.4ER PO
[2025-07-01 15:50] LABS: BASOPHILS ABSOLUTE AUTO 0.04 K/mm3 (0.00-0.23); BASOPHILS PERCENT AUTO 1 % (0-2); EOSINOPHILS ABSOLUTE AUTO 0.23 K/mm3 (0.00-0.68); EOSINOPHILS PERCENT AUTO 3 % (0-6); Hematocrit 38.1 % (37.0-53.0); Hemoglobin 11.3 g/dL (13.5-17.5); IMMATURE GRAN ABSOLUTE AUTO 0.01 K/mm3 (0.00-0.10); IMMATURE GRAN PERCENT AUTO 0 % (0-1); LYMPHOCYTES ABSOLUTE AUTO 0.98 K/mm3 (0.84-5.20); LYMPHOCYTES PERCENT AUTO 13 % (21-46); MONOCYTES ABSOLUTE AUTO 0.61 K/mm3 (0.16-1.47); MONOCYTES PERCENT AUTO 8 % (4-13); Mean Corpuscular HGB Conc 29.7 g/dL (31.5-36.5); Mean Corpuscular Volume 96 fL (80-100); NEUTROPHILS ABSOLUTE AUTO 5.59 K/mm3 (1.96-9.15); NEUTROPHILS PERCENT AUTO 75 % (41-73); NRBC ABSOLUTE 0.00 K/mm3 (0.00-0.02); NRBC Auto 0.0 /100 WBC (0.0-0.2); Platelet Count 294 K/mm3 (150-400); RDW Coefficient Variation 16.2 % (11.7-14.2); RDW Standard Deviation 57.2 fL (35.1-46.3)
[2025-07-01 16:10] LABS: Alanine Aminotransfer (ALT/SGP 21.0 U/L (12-78); Albumin, Blood 3.4 g/dL (3.4-5.0); Albumin/Globulin Ratio 0.8 (0.8-1.8); Anion Gap 8.0 mmol/L (3-11); Aspartate Aminotrans (AST/SGOT 16.0 U/L (12-37); Bilirubin, Total 0.2 mg/dL (0.1-1.0); Blood Urea Nitrogen 42.0 mg/dL (8-24); CO2, Blood 30.0 mmol/L (21-32); Calcium, Blood 8.5 mg/dL (8.5-10.1); Chloride, Blood 103.0 mmol/L (98-108); Creatinine, Blood 1.97 mg/dL (0.60-1.20); Globulin, Blood 4.1 g/dL (2.2-4.0); Glucose, Blood 108.0 mg/dL (70-99); Potassium, Blood 4.8 mmol/L (3.5-5.5); Sodium, Blood 136.0 mmol/L (136-145); Total Protein, Blood 7.5 g/dL (6.4-8.2)
[2025-07-01 17:01] VITALS: BP 105/60
== END 2025-07-01 17:35 | disposition home or self-care (01) ==
LOC: ER 15:03
PROVIDERS: Student in an Organized Health Care Education/Training Program
DX: H61.21 Impacted cerumen, right ear (principal); I12.9 Hypertensive chronic kidney disease with stage 1 through stage 4 chronic kidney disease, or unspecified chronic kidney disease; N18.30 Chronic kidney disease, stage 3 unspecified; I44.0 Atrioventricular block, first degree; D64.9 Anemia, unspecified; J44.9 Chronic obstructive pulmonary disease, unspecified; F17.210 Nicotine dependence, cigarettes, uncomplicated; Z91.030 Bee allergy status; Z79.899 Other long term (current) drug therapy
CPT/HCPCS: 36415; 80053; 85025; 93005; 93010; 99285-25